=== PATIENT | male | born 1940 | race Caucasian/White ===

== ENCOUNTER → 2016-10-24 | Outpatient (CLI) | payer MEDICARE, BC, OTHER ==
[~2016-10-24] MED LIST: /IPRA3SP INH; /TAMS4CA OR; ALBU83IN INH; ALBU83IN NEB; BIAX500T OR; CATA0.2T OR; CLON0.2T PO; FLOM5CAP PO; MULT1TAB10 PO; NASONEX; POTA595T8 PO; PRED10TA2 OR; PRED20TA OR; PRED50TA OR; PROAAER10 INH; SYMB16INH INH; SYMB80AE INH
--- NOTE | 2016-10-24 08:28 | REP ---
Clinical: Lung screening. History of nicotine dependence and emphysematous disease. Comparison: 08/23/2015, 02/09/2015 Technique: Axial low-dose noncontrast images from the thoracic inlet to the upper abdomen using lung screening technique. Findings: The lung rich are well-aerated and demonstrate moderate emphysematous disease with biapical and scattered subpleural scarring. New foci of density which are presumed to be areas of progressive scarring identified in the paramediastinal anterior segment left upper lobe (image 54) and posterior superior segment left lower lobe (image 28 - 29). 4 mm left upper lobe noncalcified nodule along with few scattered calcified granulomata and calcified right hilar and subcarinal lymph nodes are identified. No consolidation, significant nodule or mass lesion is appreciated. No acute pleural effusion/reaction or pneumothorax. Tracheobronchial tree is patent. Mediastinum demonstrates mild atherosclerotic changes of the coronary arteries without cardiomegaly. Ascending thoracic aorta measures up to 4 cm diameter. Impression: Lung-RADS category III-S. Underlying emphysematous disease along with the probably benign new findings warrant initial 6-month low-dose CT comparison followed by annual low-dose CT imaging if findings remain stable. Signed by Himanshu Yoon MD 10/24/2016 08:20 A
== END ==
LOC: M RAD 06:58
PROVIDERS: ATTEND Family Medicine
DX: Z12.2 Encounter for screening for malignant neoplasm of respiratory organs (principal); Z87.891 Personal history of nicotine dependence

== ENCOUNTER → 2017-01-03 | Outpatient (CLI) | payer MEDICARE, BC, OTHER ==
--- NOTE | 2017-01-03 20:19 | REP ---
PA CHEST WITH RIGHT RIBS: 01/03/2017. Comparison: CXR 06/25/2015, low dose lung screening CT 10/24/2016, CT chest with contrast 08/23/2015. Clinical history. Right chest wall contusion. Findings: PA chest: Lungs are hyperinflated. There is apical pleuroparenchymal scarring as on the previous study. Some minor right mid lower chest subtle opacity may reflect some chest wall contusion and is seen only in part on the previous chest x-ray 06/25/2015. Could also include other chest wall tissue or breast shadow. I do not see pleural effusion, lateral pleural thickening or pneumothorax. There is no pneumomediastinum. Heart is not enlarged. Aorta is calcified, somewhat tortuous without aneurysm. There is pulmonary artery hypertension, bullous emphysematous changes and COPD, stable. No free air under the diaphragm. Right ribs: Five dedicated views of the right ribs show an anterior right ninth rib fracture, minimally displaced. This is best seen on the anterior lower chest view. I do not see other visible acute rib fractures, effusion or pneumothorax. Thoracic spine shows no compression deformity. Posterior rib articulations intact. Visualized clavicles and humerus intact. Impression: 1. There is a minimally displaced fracture, anterior right ninth rib corresponding to the history of small contusion on the chest wall. 2. Advanced COPD, bullous emphysematous changes, fibrosis and apical pleuroparenchymal scarring. No cardiomegaly or edema. The patient had a recent chest CT with findings and followup recommendations should be maintained. Signed by Albino Tai MD 01/08/2017 01:36 P
== END ==
LOC: M ADAMS 19:07
PROVIDERS: ATTEND Physician Assistant
DX: S22.31XA Fracture of one rib, right side, initial encounter for closed fracture (principal); X58.XXXA Exposure to other specified factors, initial encounter; Y93.9 Activity, unspecified; Y92.9 Unspecified place or not applicable; Y99.8 Other external cause status

== ENCOUNTER → 2017-05-08 | Outpatient (CLI) | payer MEDICARE, BC, OTHER | LOC: M RAD 08:55 | DX: Z87.891 Personal history of nicotine dependence (principal) | CPT/HCPCS: 71250 ==

== ENCOUNTER 2018-01-18 06:35 | Inpatient (IN) | payer MEDICARE, BC, OTHER ==
[2018-01-18 07:19] LABS: BASO % 0.1 % (0.0-1.0); EOS % 0.2 % (0.0-3.0); HEMATOCRIT 47.1 % (42.0-52.0); HEMOGLOBIN 15.2 g/dl (13.5-17.5); IMMATURE GRANULOCYTE % 0.5 % (0-3.0); LYMPH % 6.1 % (24.0-44.0); MEAN CORPUSCULAR HEMOGLOBIN 32.8 pg (27.0-33.0); MEAN CORPUSCULAR HGB CONC 32.3 g/dl (32.0-36.5); MEAN CORPUSCULAR VOLUME 101.5 fl (80.0-96.0); MONO # 1.5 10^3/uL (0.0-0.8); MONO % 9.1 % (0.0-5.0); NEUTROPHILS # 13.5 10^3/uL (1.8-7.7); PLATELET COUNT, AUTOMATED 203 10^3/uL (150-450); RED BLOOD COUNT 4.64 10^6/uL (4.30-6.10); RED CELL DISTRIBUTION WIDTH 13.4 % (11.5-14.5); WHITE BLOOD COUNT 16.1 10^3/uL (4.0-10.0)
[2018-01-18 07:38] LABS: INR 1.03; PROTHROMBIN TIME 13.6 SECONDS (12.1-14.4)
[2018-01-18 07:39] LABS: PARTIAL THROMBOPLASTIN TIME 29.5 SECONDS (25.4-37.6)
[2018-01-18] MEDS: IPRATROPIUM 0.5MG/ALBUTEROL 2.5MG INH SOL UD 3ML (DUONEB)(J7620) NEB (07:56)
[2018-01-18 08:11] LABS: ABG BASE EXCESS 6.1 (-2.0-2.0); ABG HCO3 31.2 MEQ/L (22.0-26.0); ABG O2 SATURATION 97.9 % (95.0-99.0); ABG PARTIAL PRESSURE CO2 46.5 mmHg (35.0-45.0); ABG PARTIAL PRESSURE O2 98.2 mmHg (75.0-100.0); ABG TOTAL CO2 32.7 MEQ/L (23.0-31.0); ABG pH (ARTERIAL) 7.445 UNITS (7.350-7.450)
[2018-01-18 08:29] LABS: ALBUMIN 3.2 GM/DL (3.2-5.2); ALKALINE PHOSPHATASE 67 U/L (45-117); ALT/SGPT 33 U/L (12-78); ANION GAP 5 MEQ/L (8-16); AST/SGOT 19 U/L (7-37); BILIRUBIN,DIRECT 0.2 MG/DL (0.0-0.2); BILIRUBIN,TOTAL 0.7 MG/DL (0.2-1.0); BLOOD UREA NITROGEN 18 MG/DL (7-18); CALCIUM LEVEL 8.7 MG/DL (8.8-10.2); CARBON DIOXIDE LEVEL 34 MEQ/L (21-32); CHLORIDE LEVEL 103 MEQ/L (98-107); CPK CREATINE PHOSPHOKINASE 55 U/L (39-308); CREATININE FOR GFR 0.93 MG/DL (0.70-1.30); GLOMERULAR FILTRATION RATE > 60.0 (>42); GLUCOSE, FASTING 107 MG/DL (70-100); LIPASE 82 U/L (73-393); MB/CK RELATIVE INDEX 7.45 (< OR =4); POTASSIUM SERUM 4.5 MEQ/L (3.5-5.1); SODIUM LEVEL 142 MEQ/L (136-145); THYROID STIMULATING HORMONE 0.833 uIU/ML (0.358-3.740); TOTAL PROTEIN 6.1 GM/DL (6.4-8.2); TROPONIN I 0.36 NG/ML (< 0.10)
[2018-01-18] MEDS ORDERED: GASTROGRAFIN SOLUTION 30ML (Q9963) As Ordered (08:58)
[2018-01-18] MEDS: GASTROGRAFIN SOLUTION 30ML PO ×2 (09:00→09:30)
[2018-01-18] MEDS: DIGOXIN INJ 0.5 MG/2 ML AMP (J1160) IV ×2 (09:05→12:34)
[2018-01-18 09:54] LABS: CPK CREATINE PHOSPHOKINASE 109 U/L (39-308); TROPONIN I 0.48 NG/ML (< 0.10)
[2018-01-18] MEDS ORDERED: ISOVUE-370 76% 100ML VIAL (Q9967) As Ordered (10:14)
[2018-01-18] MEDS: metroNIDAZOLE 500 MG in APPROPRIATE DILUENT 1 EA IV ×2 (11:35→20:20)
[2018-01-18 11:45] LABS: CPK CREATINE PHOSPHOKINASE 66 U/L (39-308); MB/CK RELATIVE INDEX 5.45 (< OR =4); TROPONIN I 0.47 NG/ML (< 0.10)
[2018-01-18] MEDS: CIPROFLOXACIN 400 MG in APPROPRIATE DILUENT 1 EA IV ×2 (12:10→23:04)
[2018-01-18] MEDS ORDERED: ONDANSETRON 4MG/2ML VIAL (J2405) IV (12:45)
[2018-01-18] MEDS: ATENOLOL 25 MG TAB PO (13:44)
[2018-01-18] MEDS: NS 500 ML IV (13:44)
[2018-01-18] MEDS ORDERED: LEVALBUTEROL 1.25 MG/0.5 ML CONCENTRATE NEB INH (13:45)
[2018-01-18] MEDS: MULTIVITAMINS/MINERALS THERAP 1 TAB PO (15:31)
[2018-01-18] MEDS: ASPIRIN 81 MG ENTERIC TAB PO (15:31)
[2018-01-18] MEDS: ACETAMINOPHEN TAB 650MG DOSE (2X325MG) PO (15:32)
[2018-01-18] MEDS: LEVALBUTEROL 1.25 MG/0.5 ML CONCENTRATE NEB INH ×2 (15:51→20:00)
[2018-01-18] MEDS: ENOXAPARIN 80 MG/0.8 ML SYRINGE (J1650) SC (17:43)
[2018-01-18] MEDS: VERAPAMIL 40 MG TAB PO ×2 (17:43→23:00)
[2018-01-18] MEDS ORDERED: diltiaZEM 125 MG in NS 100 ML IV (18:00)
[2018-01-18 19:50] LABS: CPK CREATINE PHOSPHOKINASE 40 U/L (39-308); TROPONIN I 0.62 NG/ML (< 0.10)
[2018-01-18] MEDS: TAMSULOSIN 0.4 MG CAP PO (20:20)
[2018-01-18] MEDS: ATORVASTATIN 20 MG TAB PO (20:21)
[2018-01-18] MEDS: SYMBICORT 160/4.5MCG INHALER 6GM INH (20:55)
[2018-01-18] MEDS ORDERED: SIMVASTATIN 20 MG TAB PO (21:00)
[2018-01-18] MEDS ORDERED: APIXABAN 5 MG TAB (ELIQUIS) PO (21:00)
[2018-01-19] MEDS: LEVALBUTEROL 1.25 MG/0.5 ML CONCENTRATE NEB INH ×7 (00:06→23:36)
[2018-01-19 00:46] LABS: CPK CREATINE PHOSPHOKINASE 33 U/L (39-308); MB/CK RELATIVE INDEX 4.85 (< OR =4); TROPONIN I 0.49 NG/ML (< 0.10)
[2018-01-19] MEDS: metroNIDAZOLE 500 MG in APPROPRIATE DILUENT 1 EA IV ×3 (03:14→20:33)
[2018-01-19] MEDS: VERAPAMIL 40 MG TAB PO ×3 (03:15→17:41)
[2018-01-19] MEDS: ENOXAPARIN 80 MG/0.8 ML SYRINGE (J1650) SC ×2 (05:44→17:39)
[2018-01-19 06:05] LABS: BASO % 0.2 % (0.0-1.0); EOS # 0.1 10^3/uL (0.0-0.50); EOS % 0.4 % (0.0-3.0); HEMATOCRIT 39.7 % (42.0-52.0); IMMATURE GRANULOCYTE % 0.5 % (0-3.0); LYMPH # 1.1 10^3/uL (1.5-4.5); LYMPH % 8.6 % (24.0-44.0); MONO # 1.1 10^3/uL (0.0-0.8); MONO % 8.9 % (0.0-5.0); NEUTROPHILS # 10.5 10^3/uL (1.8-7.7); NEUTROPHILS % 81.4 % (36.0-66.0); PLATELET COUNT, AUTOMATED 172 10^3/uL (150-450); RED BLOOD COUNT 3.97 10^6/uL (4.30-6.10); RED CELL DISTRIBUTION WIDTH 13.2 % (11.5-14.5); WHITE BLOOD COUNT 12.8 10^3/uL (4.0-10.0)
[2018-01-19 06:17] LABS: HEMOGLOBIN 13.1 g/dl (13.5-17.5)
[2018-01-19 06:32] LABS: ESTIMATED AVERAGE GLUCOSE 126 MG/DL (60-110)
[2018-01-19 06:48] LABS: ALBUMIN 2.4 GM/DL (3.2-5.2); ALBUMIN/GLOBULIN RATIO 0.83 (1.00-1.93); ALKALINE PHOSPHATASE 58 U/L (45-117); ALT/SGPT 26 U/L (12-78); ANION GAP 3 MEQ/L (8-16); AST/SGOT 12 U/L (7-37); BILIRUBIN,DIRECT 0.3 MG/DL (0.0-0.2); BILIRUBIN,TOTAL 0.7 MG/DL (0.2-1.0); BLOOD UREA NITROGEN 13 MG/DL (7-18); CALCIUM LEVEL 7.8 MG/DL (8.8-10.2); CARBON DIOXIDE LEVEL 32 MEQ/L (21-32); CHLORIDE LEVEL 105 MEQ/L (98-107); CPK CREATINE PHOSPHOKINASE 26 U/L (39-308); CREATININE FOR GFR 0.83 MG/DL (0.70-1.30); GLOMERULAR FILTRATION RATE > 60.0 (>42); GLUCOSE, FASTING 86 MG/DL (70-100); POTASSIUM SERUM 4.3 MEQ/L (3.5-5.1); SODIUM LEVEL 140 MEQ/L (136-145); TOTAL PROTEIN 5.3 GM/DL (6.4-8.2); TROPONIN I 0.39 NG/ML (< 0.10)
[2018-01-19] MEDS: SYMBICORT 160/4.5MCG INHALER 6GM INH ×2 (07:33→20:26)
[2018-01-19] MEDS: DIGOXIN 0.25 MG TAB PO (08:55)
[2018-01-19] MEDS: ASPIRIN 81 MG ENTERIC TAB PO (08:55)
[2018-01-19] MEDS: MULTIVITAMINS/MINERALS THERAP 1 TAB PO (08:55)
[2018-01-19] MEDS ORDERED: DIGOXIN 0.125 MG TAB PO (09:00)
[2018-01-19] MEDS ORDERED: ENOXAPARIN 30 MG/0.3 ML SYR (J1650) SC (09:00)
[2018-01-19 10:57] LABS: NT-PRO BNP 5724 PG/ML (<450)
[2018-01-19] MEDS: CIPROFLOXACIN 400 MG in APPROPRIATE DILUENT 1 EA IV (12:05)
[2018-01-19] MEDS: TAMSULOSIN 0.4 MG CAP PO (20:34)
[2018-01-19] MEDS: ENTRESTO 24-26MG TABLET (SACUBITRIL/VALSARTAN) PO (20:35)
[2018-01-19] MEDS: ATORVASTATIN 20 MG TAB PO (20:35)
[2018-01-20] MEDS: VERAPAMIL 40 MG TAB PO ×4 (00:11→17:56)
[2018-01-20] MEDS: CIPROFLOXACIN 400 MG in APPROPRIATE DILUENT 1 EA IV ×3 (00:11→23:24)
[2018-01-20] MEDS: metroNIDAZOLE 500 MG in APPROPRIATE DILUENT 1 EA IV ×3 (03:39→19:59)
[2018-01-20] MEDS: LEVALBUTEROL 1.25 MG/0.5 ML CONCENTRATE NEB INH ×5 (04:00→20:00)
[2018-01-20 05:37] LABS: BASO % 0.2 % (0.0-1.0); EOS # 0.1 10^3/uL (0.0-0.50); EOS % 0.9 % (0.0-3.0); HEMATOCRIT 39.9 % (42.0-52.0); HEMOGLOBIN 13.3 g/dl (13.5-17.5); IMMATURE GRANULOCYTE % 0.4 % (0-3.0); LYMPH # 0.9 10^3/uL (1.5-4.5); LYMPH % 9.9 % (24.0-44.0); MEAN CORPUSCULAR HEMOGLOBIN 32.9 pg (27.0-33.0); MEAN CORPUSCULAR HGB CONC 33.3 g/dl (32.0-36.5); MEAN CORPUSCULAR VOLUME 98.8 fl (80.0-96.0); MONO # 0.8 10^3/uL (0.0-0.8); MONO % 9.1 % (0.0-5.0); NEUTROPHILS # 6.8 10^3/uL (1.8-7.7); NEUTROPHILS % 79.5 % (36.0-66.0); PLATELET COUNT, AUTOMATED 186 10^3/uL (150-450); RED BLOOD COUNT 4.04 10^6/uL (4.30-6.10); RED CELL DISTRIBUTION WIDTH 12.8 % (11.5-14.5); WHITE BLOOD COUNT 8.6 10^3/uL (4.0-10.0)
[2018-01-20 06:08] LABS: ANION GAP 5 MEQ/L (8-16); BLOOD UREA NITROGEN 11 MG/DL (7-18); CALCIUM LEVEL 7.8 MG/DL (8.8-10.2); CARBON DIOXIDE LEVEL 31 MEQ/L (21-32); CHLORIDE LEVEL 105 MEQ/L (98-107); CREATININE FOR GFR 0.74 MG/DL (0.70-1.30); GLOMERULAR FILTRATION RATE > 60.0 (>42); GLUCOSE, FASTING 97 MG/DL (70-100); POTASSIUM SERUM 3.7 MEQ/L (3.5-5.1); SODIUM LEVEL 141 MEQ/L (136-145); TROPONIN I 0.21 NG/ML (< 0.10)
[2018-01-20] MEDS: ENOXAPARIN 80 MG/0.8 ML SYRINGE (J1650) SC ×2 (06:53→17:56)
[2018-01-20] MEDS: SYMBICORT 160/4.5MCG INHALER 6GM INH ×2 (07:13→20:31)
[2018-01-20] MEDS: ENTRESTO 24-26MG TABLET (SACUBITRIL/VALSARTAN) PO ×2 (09:34→19:57)
[2018-01-20] MEDS: DIGOXIN 0.25 MG TAB PO (09:35)
[2018-01-20] MEDS: MULTIVITAMINS/MINERALS THERAP 1 TAB PO (09:35)
[2018-01-20] MEDS: ASPIRIN 81 MG ENTERIC TAB PO (09:35)
[2018-01-20] MEDS: SPIRONOLACTONE 12.5MG PER 1/2 TABLET PO (19:57)
[2018-01-20] MEDS: ATORVASTATIN 20 MG TAB PO (19:57)
[2018-01-20] MEDS: TAMSULOSIN 0.4 MG CAP PO (19:58)
[2018-01-20] MEDS: POTASSIUM CHLORIDE 10 MEQ SR TABLET PO (19:58)
[2018-01-21] MEDS: metroNIDAZOLE 500 MG in APPROPRIATE DILUENT 1 EA IV (04:00)
[2018-01-21] MEDS: LEVALBUTEROL 1.25 MG/0.5 ML CONCENTRATE NEB INH ×4 (04:00→11:24)
[2018-01-21] MEDS ORDERED: SLF 3 ML SYR IV (05:00)
[2018-01-21 05:41] LABS: BASO % 0.5 % (0.0-1.0); EOS # 0.2 10^3/uL (0.0-0.50); EOS % 1.9 % (0.0-3.0); HEMATOCRIT 42.6 % (42.0-52.0); HEMOGLOBIN 14.2 g/dl (13.5-17.5); IMMATURE GRANULOCYTE % 0.4 % (0-3.0); LYMPH # 0.8 10^3/uL (1.5-4.5); LYMPH % 9.9 % (24.0-44.0); MEAN CORPUSCULAR HEMOGLOBIN 33.1 pg (27.0-33.0); MEAN CORPUSCULAR HGB CONC 33.3 g/dl (32.0-36.5); MEAN CORPUSCULAR VOLUME 99.3 fl (80.0-96.0); MONO # 0.9 10^3/uL (0.0-0.8); MONO % 10.9 % (0.0-5.0); NEUTROPHILS # 6.4 10^3/uL (1.8-7.7); NEUTROPHILS % 76.4 % (36.0-66.0); PLATELET COUNT, AUTOMATED 216 10^3/uL (150-450); RED BLOOD COUNT 4.29 10^6/uL (4.30-6.10); RED CELL DISTRIBUTION WIDTH 12.9 % (11.5-14.5); WHITE BLOOD COUNT 8.4 10^3/uL (4.0-10.0)
[2018-01-21] MEDS: SLF 3 ML SYR IV (06:00)
[2018-01-21 06:13] LABS: ANION GAP 5 MEQ/L (8-16); BLOOD UREA NITROGEN 9 MG/DL (7-18); CARBON DIOXIDE LEVEL 30 MEQ/L (21-32); CHLORIDE LEVEL 106 MEQ/L (98-107); CREATININE FOR GFR 0.79 MG/DL (0.70-1.30); GLOMERULAR FILTRATION RATE > 60.0 (>42); GLUCOSE, FASTING 102 MG/DL (70-100); POTASSIUM SERUM 4.4 MEQ/L (3.5-5.1); SODIUM LEVEL 141 MEQ/L (136-145); TROPONIN I 0.15 NG/ML (< 0.10)
[2018-01-21] MEDS: BISOPROLOL FUM 2.5 MG PER 1/2TAB PO ×3 (07:07→11:17)
[2018-01-21] MEDS: ENOXAPARIN 80 MG/0.8 ML SYRINGE (J1650) SC (07:07)
[2018-01-21] MEDS: SYMBICORT 160/4.5MCG INHALER 6GM INH (07:19)
[2018-01-21] MEDS: MULTIVITAMINS/MINERALS THERAP 1 TAB PO (08:05)
[2018-01-21] MEDS: ASPIRIN 81 MG ENTERIC TAB PO (08:05)
[2018-01-21] MEDS: ENTRESTO 24-26MG TABLET (SACUBITRIL/VALSARTAN) PO (08:05)
[2018-01-21] MEDS: DIGOXIN 0.25 MG TAB PO (08:06)
[2018-01-21] MEDS: SPIRONOLACTONE 12.5MG PER 1/2 TABLET PO (08:06)
[2018-01-21] MEDS: AUGMENTIN 875 MG TAB PO (11:49)
== END 2018-01-21 13:00 | disposition short-term general hospital (02) | DRG 308 ==
LOC: M ED 06:35 → M ED INP 12:43 → M PCU 14:38
DX: I48.92 Unspecified atrial flutter (principal); I50.43 Acute on chronic combined systolic (congestive) and diastolic (congestive) heart failure; I24.8 Other forms of acute ischemic heart disease; K57.32 Diverticulitis of large intestine without perforation or abscess without bleeding; I48.91 Unspecified atrial fibrillation; I25.10 Atherosclerotic heart disease of native coronary artery without angina pectoris; I34.0 Nonrheumatic mitral (valve) insufficiency; I35.1 Nonrheumatic aortic (valve) insufficiency; I45.2 Bifascicular block; R91.8 Other nonspecific abnormal finding of lung field; I11.0 Hypertensive heart disease with heart failure; N40.0 Benign prostatic hyperplasia without lower urinary tract symptoms; J44.9 Chronic obstructive pulmonary disease, unspecified; Z87.891 Personal history of nicotine dependence; Z87.442 Personal history of urinary calculi; Z79.51 Long term (current) use of inhaled steroids; Z79.52 Long term (current) use of systemic steroids; Z79.899 Other long term (current) drug therapy

== ENCOUNTER → 2018-02-11 | Outpatient (CLI) | payer MEDICARE, BC, OTHER | LOC: M RAD 06:59 | DX: R91.8 Other nonspecific abnormal finding of lung field (principal) | CPT/HCPCS: 71250 ==

== ENCOUNTER → 2018-07-17 | Outpatient (CLI) | payer MEDICARE, BC, OTHER ==
[~2018-07-17] MED LIST changes: -/IPRA3SP INH; -/TAMS4CA OR; +ALDA25TA2 PO; +AMOX/K PO; +AMOX875T2 PO; +ASPI81TAEC PO; +ATOR1TAB21 PO; +ATRO1SOL13 INH; +BISO5TAB5 PO; +DIGO0.25 PO; +ENTR1TAB PO; +FLOM0.4C39 OR; +FLOM0.4C39 PO; -FLOM5CAP PO; +LOVE0.6I2 SC; +PRED10TA2 PO
--- NOTE | 2018-07-17 12:03 | REP ---
PET/CT: HISTORY: Nonspecific abnormal finding of the lung field. COMPARISONS: Comparison CT study of the chest February 11, 2018. TECHNIQUE: 46 minutes following the intravenous injection of a 9.41 mCi dose of F-18 FDG, three-dimensional PET scintigraphy is acquired from the skull base to the proximal thighs. Triplanar noncontrast CT scanning is acquired through the same anatomic range for attenuation correction, and image registration with scan parameters optimized to minimize radiation exposure to the patient. PET scintigraphy and CT datasets were fused and displayed on a workstation with multiplanar and projection display capability. PET/CT FINDINGS: Head and neck soft tissues are unremarkable. There is no abnormal pulmonary parenchymal hypermetabolic uptake. The 1.6 cm nodule identified on the CT study of the chest from February 11, 2018 has resolved. No other intrathoracic hypermetabolic uptake is seen. In the abdomen and pelvis, normal hepatic, splenic, and gastrointestinal activity is seen. No abnormal hypermetabolic uptake is noted. IMPRESSION: Negative PET scintigraphy. No abnormal pulmonary parenchymal hypermetabolic uptake is seen. The recently noted 1.6 cm right lower lobe nodule is no longer apparent. Electronically Signed by Davy Nieto MD 07/17/2018 02:52 P
== END ==
LOC: M PLARAD 07:07
PROVIDERS: ATTEND Internal Medicine Pulmonary Disease
DX: Z87.09 Personal history of other diseases of the respiratory system (principal)
CPT/HCPCS: 78815; A9552

== ENCOUNTER → 2018-08-20 | Outpatient (REF) | payer MEDICARE, OTHER ==
[2018-08-20 13:37] LABS: ALBUMIN 3.5 GM/DL (3.2-5.2); ALT/SGPT 223 U/L (12-78); BILIRUBIN,TOTAL 0.6 MG/DL (0.2-1.0); BLOOD UREA NITROGEN 18 MG/DL (7-18); CALCIUM LEVEL 8.8 MG/DL (8.8-10.2); CARBON DIOXIDE LEVEL 29 MEQ/L (21-32); CHLORIDE LEVEL 105 MEQ/L (98-107); CHOLESTEROL LEVEL 190 MG/DL (<200); CHOLESTEROL RISK RATIO 1.919 (<5); CREATININE FOR GFR 0.85 MG/DL (0.70-1.30); GLOMERULAR FILTRATION RATE > 60.0 (>42); GLUCOSE, FASTING 96 MG/DL (70-100); HDL CHOLESTEROL 99 MG/DL (>40); LDL CHOLESTEROL 80 MG/DL (<100); MAGNESIUM LEVEL 2.5 MG/DL (1.8-2.4); NON-HDL-C 91 MG/DL; POTASSIUM SERUM 4.4 MEQ/L (3.5-5.1); SODIUM LEVEL 140 MEQ/L (136-145); TOTAL PROTEIN 6.9 GM/DL (6.4-8.2); TRIGLYCERIDES LEVEL 53 MG/DL (<150)
== END ==
LOC: M LABDRAW1 12:02
PROVIDERS: ATTEND Family Medicine
DX: I10 Essential (primary) hypertension (principal); Z79.899 Other long term (current) drug therapy

== ENCOUNTER 2019-04-23 12:01 | Day surgery (SDC) | payer MEDICARE, BC, OTHER ==
[~2019-04-23] VITALS: Ht 177.8 cm; Wt 73.5 kg
[~2019-04-23 12:01] MED LIST changes: +BISO5TAB14 PO; -BISO5TAB5 PO; -DIGO0.25 PO; +DIGO0.253 PO; +ELIQ5TAB PO; +NITR4TASL SL; +NS 1,000 ML IV SCH; +TIOT18INH INH
[2019-04-23] MEDS ORDERED: ALBUTEROL SULFATE 2.5 MG/0.5 ML INH NEB SOLN As Ordered ONE (13:28)
[2019-04-23] MEDS ORDERED: LIDOCAINE 2% INJ 100 MG/5 ML SDV (FOR ANES.) As Ordered ONE (13:45)
[2019-04-23] MEDS ORDERED: propofoL 200 MG/20 ML VIAL As Ordered ONE (13:45)
[2019-04-23] MEDS ORDERED: ALBUTEROL SULFATE 2.5 MG/0.5 ML INH NEB SOLN INH ONE (14:00)
--- NOTE | 2019-04-23 14:10 | ROOR ---
Patient Name: Bakari Arguello Procedure Date: 04/23/2019 1:48 PM Date of : 1940 Age: 79 Room: [facility] Gender: Male Note Status: Finalized Procedure: Colonoscopy Indications: High risk colon cancer surveillance: Personal history of colonic polyps Providers: DO Sapna Alas MD: Cindy Torres MD Requesting Provider: Medicines: Propofol per Anesthesia Complications: No immediate complications. Procedure: Pre-Anesthesia Assessment: - Prior to the procedure, a History and Physical was performed, and patient medications and allergies were reviewed. The patient is competent. The risks and benefits of the procedure and the sedation options and risks were discussed with the patient. All questions were answered and informed consent was obtained. Patient identification and proposed procedure were verified by the physician, the nurse, the anesthesiologist and the rehab technician in the endoscopy suite. Mental Status Examination: alert and oriented. Airway Examination: normal oropharyngeal airway and neck mobility. Respiratory Examination: clear to auscultation. CV Examination: normal. Prophylactic Antibiotics: The patient does not require prophylactic antibiotics. Prior Anticoagulants: The patient has taken Eliquis (apixaban), last dose was 5 days prior to procedure. ASA Grade Assessment: III - A patient with severe systemic disease. After reviewing the risks and benefits, the patient was deemed in satisfactory condition to undergo the procedure. The anesthesia plan was to use monitored anesthesia care (MAC). Immediately prior to administration of medications, the patient was re-assessed for adequacy to receive sedatives. The heart rate, respiratory rate, oxygen saturations, blood pressure, adequacy of pulmonary ventilation, and response to care were monitored throughout the procedure. The physical status of the patient was re-assessed after the procedure. The Colonoscope was introduced through the anus and advanced to the cecum, identified by appendiceal orifice and ileocecal valve. The colonoscopy was technically difficult and complex due to inadequate bowel prep. [Solution]. Findings: A less than 5 mm polyp was found in the transverse colon. The polyp was hyperplastic. The polyp was removed with a jumbo cold forceps. Resection and retrieval were complete. Estimated blood loss was minimal. Multiple small and large-mouthed diverticula were found in the sigmoid colon and descending colon. Non-bleeding internal hemorrhoids were found during retroflexion. The hemorrhoids were small. A moderate amount of stool was found in the entire colon, interfering with visualization. The exam was otherwise without abnormality on direct and retroflexion views. Impression: - One less than 5 mm polyp in the transverse colon, removed with a jumbo cold forceps. Resected and retrieved. - Diverticulosis in the sigmoid colon and in the descending colon. - Non-bleeding internal hemorrhoids. - Stool in the entire examined colon. - The examination was otherwise normal on direct and retroflexion views. Recommendation: - Patient has a contact number available for emergencies. The signs and symptoms of potential delayed complications were discussed with the patient. Return to normal activities tomorrow. Written discharge instructions were provided to the patient. - Repeat colonoscopy in 1 year because the bowel preparation was suboptimal. - Return to my office as previously scheduled. - Await pathology results. Jamshid Dunn DO 04/23/2019 2:10:17 PM Electronically signed by Jamshid Dunn DO Number of Addenda: 0 Note Initiated On: 04/23/2019 1:48 PM Estimated Blood Loss: Estimated blood loss: none.
[2019-04-23 14:35] VITALS: BP 111/73
== END 2019-04-23 14:53 | disposition home or self-care (01) ==
LOC: M OPP 12:01
PROVIDERS: ATTEND Surgery
DX: Z12.11 Encounter for screening for malignant neoplasm of colon (principal); Z86.010 Personal history of colon polyps; D12.3 Benign neoplasm of transverse colon; K64.8 Other hemorrhoids; K57.30 Diverticulosis of large intestine without perforation or abscess without bleeding; Z79.82 Long term (current) use of aspirin; Z79.899 Other long term (current) drug therapy

== ENCOUNTER → 2019-08-14 | Outpatient (CLI) | payer MEDICARE, BC, OTHER ==
[~2019-08-14] MED LIST changes: -NS 1,000 ML IV SCH
--- NOTE | 2019-08-14 12:33 | REP ---
CT CHEST WITHOUT IV CONTRAST: CT chest performed without IV contrast. Sagittal and coronal reconstruction images are performed. Comparison is made with prior PET/CT 07/17/[address] 02/11/2018. There is biapical pleural and parenchymal scaring which is stable. Diffuse interstitial fibrotic scaring and emphysematous change is stable. There is a 6 mm nodule in the right lower lobe, which has remained stable since the 02/11/2018 exam. No new nodule is seen. Focal fibroatelectatic change is seen in the right lateral costophrenic angle. Calcified granuloma is seen in each lung. Small calcified lymph nodes are seen in the subcarinal region and right hilum. No suspicious adenopathy is seen. There is atherosclerotic calcification of the thoracic aorta with mild ectasia. The heart is not enlarged. There is no pleural or pericardial effusion. There are calcified granulomas in the liver and spleen. Small gallstones are seen in the gallbladder. There are degenerative changes of the spine. There is a stable compression deformity of L1 noted. IMPRESSION: Stable chronic lung findings as discussed in detail above. Stable 6 mm nodular density in the right lower lobe unchanged since 02/11/2018. No new nodule. Focal fibroatelectasis right lateral costophrenic angle. Evidence of prior granulomatous disease. Gallstones in the gallbladder. Electronically Signed by Jamshid Wyatt MD 08/14/2019 01:08 P
== END ==
LOC: M RAD 10:53
PROVIDERS: ATTEND Internal Medicine Pulmonary Disease
DX: R91.8 Other nonspecific abnormal finding of lung field (principal); J84.10 Pulmonary fibrosis, unspecified; I70.0 Atherosclerosis of aorta; K80.20 Calculus of gallbladder without cholecystitis without obstruction; I77.810 Thoracic aortic ectasia

== ENCOUNTER → 2020-02-10 | Outpatient (REF) | payer MEDICARE, BC, OTHER ==
[2020-02-10 12:48] LABS: BASO # 0.1 10^3/uL (0.0-0.2); BASO % 0.7 % (0.0-1.0); EOS # 0.2 10^3/uL (0.0-0.5); EOS % 2.5 % (0.0-3.0); HEMATOCRIT 45.2 % (42.0-52.0); HEMOGLOBIN 14.9 g/dl (13.5-17.5); LYMPH # 1.5 10^3/uL (1.5-5.0); LYMPH % 20.9 % (24.0-44.0); MEAN CORPUSCULAR HEMOGLOBIN 33.9 pg (27.0-33.0); MEAN CORPUSCULAR VOLUME 102.7 fl (80.0-96.0); MONO # 0.7 10^3/uL (0.0-0.8); MONO % 8.9 % (0.0-5.0); NEUTROPHILS # 4.9 10^3/uL (1.5-8.5); NEUTROPHILS % 66.7 % (36.0-66.0); PLATELET COUNT, AUTOMATED 186 10^3/uL (150-450); WHITE BLOOD COUNT 7.3 10^3/uL (4.0-10.0)
[2020-02-10 13:28] LABS: ALBUMIN 3.7 GM/DL (3.2-5.2); ALT/SGPT 125 U/L (12-78); BILIRUBIN,TOTAL 0.6 MG/DL (0.2-1.0); BLOOD UREA NITROGEN 18 MG/DL (7-18); CALCIUM LEVEL 9.3 MG/DL (8.8-10.2); CARBON DIOXIDE LEVEL 33 MEQ/L (21-32); CHLORIDE LEVEL 105 MEQ/L (98-107); CHOLESTEROL LEVEL 143 MG/DL (<200); CHOLESTEROL RISK RATIO 1.787 (<5); CREATININE FOR GFR 0.87 MG/DL (0.70-1.30); GLOMERULAR FILTRATION RATE > 60.0 (>42); GLUCOSE, FASTING 95 MG/DL (70-100); HDL CHOLESTEROL 80 MG/DL (>40); LDL CHOLESTEROL 50 MG/DL (<100); NON-HDL-C 63 MG/DL; POTASSIUM SERUM 4.7 MEQ/L (3.5-5.1); SODIUM LEVEL 142 MEQ/L (136-145); TOTAL PROTEIN 7.1 GM/DL (6.4-8.2); TRIGLYCERIDES LEVEL 66 MG/DL (<150)
== END ==
LOC: M LABDRWAD 12:09
PROVIDERS: ATTEND Family Medicine
DX: I10 Essential (primary) hypertension (principal); E78.2 Mixed hyperlipidemia

== ENCOUNTER → 2020-05-14 | Outpatient (CLI) | payer MEDICARE, BC, OTHER ==
[~2020-05-14] MED LIST changes: +BUDE10.2 INH; +INCR1INH INH; +TAMS1CAP17 PO
== END ==
LOC: M LABSMTC 09:57
PROVIDERS: ATTEND Anesthesiology
DX: Z01.812 Encounter for preprocedural laboratory examination (principal); Z20.822 Contact with and (suspected) exposure to COVID-19

== ENCOUNTER 2020-05-19 06:53 | Day surgery (SDC) | payer MEDICARE, BC, OTHER ==
[~2020-05-19] VITALS: Ht 180.3 cm; Wt 71.7 kg
[~2020-05-19 06:53] MED LIST changes: +NS 1,000 ML IV ONE
--- OUTSIDE RECORDS SUMMARY | 2020-05-19 06:57 | CCD | Continuity of Care Document ---
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 AUTM [phone] Problems Active Problems Provider Date Essential hypertension Jamshid Dunn DO Onset: 5 Social History Type Date Description Comments Sex Unknown ETOH Use Denies alcohol use Tobacco Use Start: 04[birth year]16/51 End: 04/16/17 Patient is a forme r smoker QUIT 2011 - SMOKED 1-02/15 PPD FOR 50 YEARS Recreational Drug Use Denies Drug Use Smoking Status Reviewed: 08/21/19 Patient is a former smoker QU IT 2011 - SMOKED 1-02/15 PPD FOR 50 YEARS Allergies, Adverse Reactions, Alerts Description No Known Drug Allergies Medications Active Medications SIG Qnty Indications Ordering Provide r Date Spiriva Respimat 2.5mcg/Act Aeroso l 2 puffs every day 4gm J44.9 Sana Awad M.D. 02/04/2018 Tamsulosin HCL 0.4mg Capsules 1 by mouth every day Cindy Torres M.D. Symbicort 160-4.5mcg/Act Aerosol 2 puff twice a day 1units Cindy Torres M.D. Proair HFA 108(90Base) mcg/Act Aer osol 2 puffs every 4 hours as needed Unknown Albuterol Sulfate Nebulizer 1 vial via nebulizer four times a day as needed Unknown Multivitamin Adult Tablets 1 by mouth every day Unknown Aspirin 81mg Tablets DR 1 by mouth every day Unknown Eliquis 5mg Tablets 1 by mouth twice a day--- Dr. Baker, hx stent Unknown Entresto 24-26mg Tablets 1 by mouth twice a day Unknown Spironolactone 25mg Tablets 1/2 by mouth every day Unknown Nitrostat 0.4mg Tablets Sub 1 tab by mouth sl as needed Unknown Immunizations Description No Information Available Vital Signs Date Vital Result Comment 04/29/2020 10:49am BP Systolic 130 mmHg BP Diastolic 70 mmHg Height 70 inches 5'10" Weight 166.00 lb BMI (Body Mass Index) 23.8 kg/m2 [place] Body Weight 166 lb Weight 75.298 kg BSA (Body Surface Area) 1.93 m2 08/21/2019 8:13am BP Systolic 122 mmHg BP Diastolic 74 mmHg Heart Rate 59 /min O2 % BldC Oximetry 97 % Body Temperature 97.6 F Height 70 inches 5'10" Weight 169.12 lb BMI (Body Mass Index) 24.3 kg/m2 [place] Body Weight 166 lb Weight 76.715 kg BSA (Body Surface Area) 1.94 m2 Results Description No Information Available Procedures Description No Information Available Medical Devices Description No Information Available Encounters Description No Information Available Assessments Date Code Description Provider 04/29/2020 Z86.010 Personal history of colonic poly ps Jamshid Dunn DO Plan of Treatment Future Appointment(s):* 06/02/2020 9:30 am - Jimi Retana NP at [facility] * 05/19/2020 8:00 am - Jamshid Dunn DO at [facility] 04/29/2020 - Jamshid Dunn DO* Z86.010 Personal history of colonic polyps* Comments:* S/P colonoscopy 1 year ago with a polyp and poor prep. Recommendation was for repeat scope this year. Risks and benefits of the scope were discussed in detail with him. Risks include, but are not limited to, bleeding, infection, and perforation. He understands, and agreed to the procedure. Functional Status Functional Condition Comment Date Status Independent with all ADL's Activ e Independent with all IADL's Acti ve Mental Status Mental Condition Comment Date Status Cognitive ability not impaired A ctive Referrals Description No Information Available
--- OUTSIDE RECORDS SUMMARY | 2020-05-19 06:57 | CCD | Continuity of Care Document ---
Author Author Bakari [facility]HELPS [facility] Organization Unknown Address [address] [place] [address] Phone [phone] Problems Active Problems Provider Date Essential hypertension Cindy Torres M.D. Onset: 06/17 COPD Cindy Torres M.D. Onset: 05/05/19 15 Congestive heart failure Cindy Torres M.D. Onset: Social History Type Date Description Comments Sex Unknown Tobacco Use Start: Unknown End: Unknown Current Ciga rette Smoker Packs Daily 1 1/2 Tobacco Use Start: Unknown Never Used Smokeless Tobacco ETOH Use Denies alcohol use Tobacco Use Start: Unknown End: Unknown Patient is a former smoker 1-1 1/2 ppd x 50 years. Quit but can't tell me when he quit Recreational Drug Use Never Used Drugs Smoking Status Reviewed: 02/24/20 Patient is a former smoker 1- 1 1/2 ppd x 50 years. Quit but can't tell me when he quit Exercise Type/Frequency Exercises regularly Tattoo/Piercing None Sun Exposure Moderate amount of sun exposure Sun Exposure Does not use sunscreen Seat Belt/Car Seat Sometimes uses seat belt Bike Helmet Never Smoke Alarms Yes Smoke Alarms Carbon Monoxide Detector: Yes Allergies, Adverse Reactions, Alerts Description No Known Drug Allergies Medications Active Medications SIG Qnty Indications Ordering Provide r Date Prednisone 10mg Tablets 4 po q d xs 3 d then 3 q d xs 3 d then 2 q d xs 3 d then 1 qd for 3 days then 1/2 qd for 4 days 36tabs J44.1 Mabel Phelps FNP 03/08/2020 Levofloxacin 500mg Tablets one tab daily for seven days 7tabs J44.1 Mabel Phelps FNP 03/08/2020 Spiriva Handihaler 18mcg Capsules inhale the contents of one capsule by mouth via handihaler daily 30caps J8 4.10 Cindy Torres M.D. 05/13/2018 Entresto 24-26mg Tablets take one tablet by mouth twice a day 60tabs Cindy Torres M.D. Spironolactone 25mg Tablets take one-half tablet by mouth every morning 45tabs Cindy Torres M.D. 03/05/2018 Proair HFA 108(90Base) mcg/Act Aer osol 2 puffs every 4 hours as needed 25.5gm J44.9 Cindy Torres M.D. 08/12/2014 Tamsulosin HCL 0.4mg Capsules take one capsule by mouth at bedtime 30caps Cindy Torres M.D. 07/06/2011 Albuterol Sulfate (2 .5mg/3ML) 0.083% Nebulizer Use 1 Vial Every 6 Hours as Needed For Cough 75units J44 .9 Cindy Torres M.D. 05/15/2011 Multivitamin Men Tablets 1 by mouth every day Unknown Symbicort 160-4.5mcg/Act Aerosol inhale two puffs by mouth twice a day 30.6units J84.10 Cindy Torres M.D. Lipitor 40mg Tablets 1 by mouth every day 90tabs Cindy Torres M.D. Eliquis 5mg Tablets Take One Tablet By Mouth Twice A Day 90tabs Cindy Torres M.D. Nitroglycerin 0.4mg Tablets Sub place 1 tablet under the tongue every five minutes up to maximum of 3 tablets as needed for chest pain. if no relief call 911 Devendra Cameron MD Aspirin 81 Low Dose 81mg Chewtabs Unknown Immunizations CPT Code Status Date Vaccine Lot # [id number] [place] 02/24/2020 Influenza Virus Vaccine, Quadrivalent,age 3 and up,multidose vial [id number] 46834 Given 02/21/2019 Influenza Virus Vaccine, Quadrivalent,age 3 and up,multidose vial [id number] 75668 Given 03/20/2018 Influenza Virus, quadravalent, preservative free,age 3 and up [id number] 44833 Given 08/28/2016 Prevnar 13 For Adults [id number] Given 02/05/2013 Influenza Vaccine (Fluzone)( medicare) [id number] Given 02/05/2013 Pneumococcal Vaccine [id number] 24080 Given 02/05/2013 Influenza Vaccination [id number] 36454 Given 01/31/2007 Influenza Vaccination [id number] 28823 Refused 01/04/2015 Influenza Vaccination Vital Signs Date Vital Result Comment 02/24/2020 7:18am BP Systolic 151 mmHg BP Diastolic 71 mmHg BP Systolic Recheck 127 mmHg recheck BP Diastolic Recheck 67 mmHg recheck Heart Rate 54 /min Body Temperature 97.2 F Respiratory Rate 18 /min Height 70.75 inches 5'10.75" Weight 161.38 lb O2 % BldC Oximetry 93 % P-47 Peak Expiratory Flow Rate 497 Estimated Peak Flow Rate [place] Body Weight 166 lb BMI (Body Mass Index) 22.7 kg/m2 08/22/2019 7:18am BP Systolic 133 mmHg BP Diastolic 69 mmHg Heart Rate 58 /min Body Temperature 97.0 F Respiratory Rate 18 /min Height 70.75 inches 5'10.75" Weight 169.00 lb O2 % BldC Oximetry 94 % Peak Expiratory Flow Rate 494 Estimated Peak Flow Rate [place] Body Weight 166 lb BMI (Body Mass Index) 23.7 kg/m2 Results Test Acquired Date Facility Test Result H/L Range Note CMP - Complete Panel (14 Test) 02/10/2020 Patient [address] [place], [place] [id number] [phone] Glucose, Fasting 95 mg/dL Normal 70-100 Blood Urea Nitrogen 18 mg/dL Normal 7-18 Creatinine For GFR 0.87 mg/dL Normal 0.70-1.30 Glomerular Filtration Rate > 60.0 Normal >42 1 Sodium Level 142 mEq/L Normal 136-145 Potassium Serum 4.7 mEq/L Normal 3.5-5.1 Chloride Level 105 mEq/L Normal 98-107 Carbon Dioxide Level 33 mEq/L High 21-32 Anion Gap 4 mEq/L Low 8-16 Calcium Level 9.3 mg/dL Normal 8.8-10.2 Ast/Sgot 83 U/L High 7-37 Alt/SGPT 125 U/L High 12-78 Alkaline Phosphatase 106 U/L Normal 45-117 Bilirubin,Total 0.6 mg/dL Normal 0.2-1.0 Total Protein 7.1 GM/DL Normal 6.4-8.2 Albumin 3.7 GM/DL Normal 3.2-5.2 Albumin/Globulin Ratio 1.1 Normal CBC With Auto Diff 02/10/2020 [place] [address] [phone] White Blood Count 7.3 10 Normal 4.0-10.0 Red Blood Count 4.40 10 Normal 4.30-6.10 Hemoglobin 14.9 g/dL Normal 13.5-17.5 Hematocrit 45.2 % Normal 42.0-52.0 Mean Corpuscular Volume 102.7 fl High 80.0-96.0 Mean Corpuscular Hemoglobin 33.9 pg High 27.0-33.0 Mean Corpuscular HGB Conc 33.0 g/dL Normal 32.0-36.5 Red Cell Distribution Width 12.6 % Normal 11.5-14.5 Platelet Count, Automated 186 10 Normal 150-450 Neutrophils % 66.7 % High 36.0-66.0 Lymph % 20.9 % Low 24.0-44.0 [place] % 8.9 % High 0.0-5.0 Eos % 2.5 % Normal 0.0-3.0 Baso % 0.7 % Normal 0.0-1.0 Immature Granulocyte % 0.3 % Normal 0-3.0 Nucleated Red Blood Cell % 0.0 % Normal 0-0 Neutrophils # 4.9 10 Normal 1.5-8.5 Lymph # 1.5 10 Normal 1.5-5.0 [place] # 0.7 10 Normal 0.0-0.8 Eos # 0.2 10 Normal 0.0-0.5 Baso # 0.1 10 Normal 0.0-0.2 Lipid Panel 02/10/2020 [place] [address] [phone] Triglycerides Level 66 mg/dL Normal <150 Cholesterol Level 143 mg/dL Normal <200 HDL Cholesterol 80 mg/dL Normal >40 LDL Cholesterol 50 mg/dL Normal <100 Non-HDL-C 63 mg/dL Normal Cholesterol Risk Ratio 1.787 Normal <5 1 Units are mL/min/1.73 m2 Chronic Kidney Disease Staging per NKF: Stage I & II GFR >=60 Normal to Mildly Decreased Stage III GFR 30-59 Moderately Decreased Stage IV GFR 15-29 Severely Decreased Stage V GFR <15 Very Little GFR Left ESRD GFR <15 on [employer]VERSAL [employer] Procedures Description No Information Available Medical Devices Description No Information Available Encounters Type Date Location Provider Dx Diagnosis Office Visit 03/08/2020 3:45p Main Office Mabel Phelps FNP J44.1 Chronic obstructive pulmonary disease w (acute) exacerbation Office Visit 02/24/2020 7:15a Main Office Cindy Torres M.D. J 44.9 Chronic obstructive pulmonary disease, unspecified J84.10 Pulmonary fibrosis, unspecif ied I50.32 Chronic diastolic (congestiv e) heart failure I11.0 Hypertensive heart disease w ith heart failure Z23 Encounter for immunization Assessments Date Code Description Provider 03/08/2020 J44.1 Chronic obstructive pulmonary di sease with (acute) exacerbat Mabel Phelps FNP 02/24/2020 J44.9 Chronic obstructive pulmonary di sease, unspecified Cindy Torres M.D. 02/24/2020 J84.10 Pulmonary fibrosis, unspecified Cidny Torres M.D. 02/24/2020 I50.32 Chronic diastolic (congestive) h eart failure Cindy Torres M.D. 02/24/2020 I11.0 Hypertensive heart disease with heart failure Cindy Torres M.D. 02/24/2020 Z23 Encounter for immunization Cindy Briceno ams, M.D. 02/10/2020 I10 Essential (primary) hypertension Cindy Torres M.D. 02/10/2020 J44.9 Chronic obstructive pulmonary di sease, unspecified Cindy Torres M.D. 02/10/2020 J84.10 Pulmonary fibrosis, unspecified Cindy Torres M.D. 02/10/2020 I50.32 Chronic diastolic (congestive) h eart failure Cindy Torres M.D. 01/06/2020 I10 Essential (primary) hypertension Cindy Torres M.D. 01/06/2020 J44.9 Chronic obstructive pulmonary di sease, unspecified Cindy Torres M.D. 01/06/2020 J84.10 Pulmonary fibrosis, unspecified Cindy Torres M.D. 01/06/2020 I50.32 Chronic diastolic (congestive) h eart failure Cindy Torres M.D. 12/15/2019 I10 Essential (primary) hypertension Cindy Torres M.D. 12/15/2019 J44.9 Chronic obstructive pulmonary di sease, unspecified Cindy Torres M.D. 12/15/2019 J84.10 Pulmonary fibrosis, unspecified Cindy Torres M.D. 12/15/2019 I50.32 Chronic diastolic (congestive) h eart failure Cindy Torres M.D. 11/04/2019 I10 Essential (primary) hypertension Cindy Torres M.D. 11/04/2019 J44.9 Chronic obstructive pulmonary di sease, unspecified Cindy Torres M.D. 11/04/2019 J84.10 Pulmonary fibrosis, unspecified Cindy Torres M.D. 11/04/2019 I50.32 Chronic diastolic (congestive) h eart failure Cindy Torres M.D. 10/13/2019 I10 Essential (primary) hypertension Cindy Torres M.D. 10/13/2019 J44.9 Chronic obstructive pulmonary di sease, unspecified Cindy Torres M.D. 10/13/2019 J84.10 Pulmonary fibrosis, unspecified Cindy Torres M.D. 10/13/2019 I50.32 Chronic diastolic (congestive) h eart failure Cindy Torres M.D. Plan of Treatment Future Appointment(s):* 08/24/2020 7:10 am - Cindy Torres M.D. at Main Office Functional Status Functional Condition Comment Date Status Partial dentures Active Independent with all ADL's Activ e Independent with all IADL's Acti ve Bifocal glasses Active Mental Status Mental Condition Comment Date Status None Active Referrals Description No Information Available
--- OUTSIDE RECORDS SUMMARY | 2020-05-19 06:57 | CCD | Continuity of Care Document ---
Author Author Bakari PHELPS [facility] Organization Unknown Address [address] [place] [address] Phone [phone] Problems Active Problems Provider Date Essential hypertension [...] CPT Code Status Date Vaccine Lot # [id number] Given 02/24/2020 Influenza Virus Vaccine, Quadrivalent,age 3 and up,multidose vial [id number] 91940 Given 02/21/2019 Influenza Virus Vaccine, Quadrivalent,age 3 and up,multidose vial [id number] Given 03/20/2018 Influenza Virus, quadravalent, preservative free,age 3 and up [id number] 39575 Given 08/28/2016 Prevnar 13 For Adults [id number] Given 02/05/2013 Influenza Vaccine (Fluzone)( medicare) [id number] Given 02/05/2013 Pneumococcal Vaccine [id number] 94933 Given 02/05/2013 Influenza Vaccination [id number] 47123 Given 01/31/2007 Influenza Vaccination [id number] [id number] Refused 01/04/2015 Influenza Vaccination Vital Signs Date [...] Flow Rate 497 Estimated Peak Flow Rate [place] Body Weight 166 lb BMI (Body Mass Index) 22.7 kg/m2 08/22/2019 7:18am BP Systolic 133 mmHg BP Diastolic 69 mmHg Heart Rate 58 /min Body Temperature 97.0 F Respiratory Rate 18 /min Height 70.75 inches 5'10.75" Weight 169.00 lb O2 % BldC Oximetry 94 % Peak Expiratory Flow Rate 494 Estimated Peak Flow Rate [place] Body Weight 166 lb BMI (Body Mass Index) 23.7 kg/m2 Results Test Acquired Date Facility Test Result H/L Range Note CMP - Complete Panel (14 Test) 02/10/2020 [address] [place], [place] [id number] [phone] Glucose, Fasting 95 mg/dL Normal 70-100 Blood [...] CBC With Auto Diff 02/10/2020 [place] [address] [phone] White Blood Count 7.3 10 Normal 4.0-10.0 [...] 36.0-66.0 Lymph % 20.9 % Low 24.0-44.0 [place] % 8.9 % High 0.0-5.0 Eos % 2.5 % Normal 0.0-3.0 Baso % 0.7 % Normal 0.0-1.0 Immature Granulocyte % 0.3 % Normal 0-3.0 Nucleated Red Blood Cell % 0.0 % Normal 0-0 Neutrophils # 4.9 10 Normal 1.5-8.5 Lymph # 1.5 10 Normal 1.5-5.0 [place] # 0.7 10 Normal 0.0-0.8 Eos # 0.2 10 Normal 0.0-0.5 Baso # 0.1 10 Normal 0.0-0.2 Lipid Panel 02/10/2020 [place] [address] [phone] Triglycerides Level 66 mg/dL Normal <150 Cholesterol [...] Little GFR Left ESRD GFR <15 on [facility] QA LAB TECHNICIAN Procedures Description No Information Available Medical Devices [...] Torres M.D. 02/24/2020 J84.10 Pulmonary fibrosis, unspecified Cindy Torres M.D. 02/24/2020 I50.32 Chronic diastolic (congestive) [...] - Cindy Torres M.D. at Main Office 03/08/2020 - Mabel Phelps FNP* J44.1 Chronic obstructive pulmonary disease with (acute) exacerbat* New Medication:* Prednisone 10 mg - 4 po q d xs 3 d then 3 q d xs 3 d then 2 q d xs 3 d then 1 qd for 3 days then 1/2 qd for 4 days * Levofloxacin 500 mg - one tab daily for seven days Functional Status Functional Condition Comment Date Status Partial dentures Active Independent with all ADL's Activ e Independent with all IADL's Acti ve Bifocal glasses Active Mental Status Mental Condition Comment Date Status None Active Referrals Description No Information Available
--- OUTSIDE RECORDS SUMMARY | 2020-05-19 06:58 | CCD | Continuity of Care Document ---
Author Author Bakari TORRES M.D. Organization Unknown Address [address] [place] [address] Phone [phone] Problems Active Problems Provider Date Essential hypertension [...] Qnty Indications Ordering Provide r Date Spiriva Handihaler 18mcg Capsules inhale the contents [...] CPT Code Status Date Vaccine Lot # [id number] Given 02/24/2020 Influenza Virus Vaccine, Quadrivalent,age 3 and up,multidose vial [id number] 08991 Given 02/21/2019 Influenza Virus Vaccine, Quadrivalent,age 3 and up,multidose vial [id number] 03848 Given 03/20/2018 Influenza Virus, quadravalent, preservative free,age 3 and up [id number] 88588 Given 08/28/2016 Prevnar 13 For Adults [id number] Given 02/05/2013 Influenza Vaccine (Fluzone)( medicare) [id number] Given 02/05/2013 Pneumococcal Vaccine [id number] Given 02/05/2013 Influenza Vaccination [id number] 06240 Given 01/31/2007 Influenza Vaccination [id number] 66366 Refused 01/04/2015 Influenza Vaccination Vital Signs Date [...] Flow Rate 497 Estimated Peak Flow Rate [place] Body Weight 166 lb BMI (Body Mass Index) 22.7 kg/m2 08/22/2019 7:18am BP Systolic 133 mmHg BP Diastolic 69 mmHg Heart Rate 58 /min Body Temperature 97.0 F Respiratory Rate 18 /min Height 70.75 inches 5'10.75" Weight 169.00 lb O2 % BldC Oximetry 94 % Peak Expiratory Flow Rate 494 Estimated Peak Flow Rate [place] Body Weight 166 lb BMI (Body Mass Index) 23.7 kg/m2 Results Test Acquired Date Facility Test Result H/L Range Note CMP - Complete Panel (14 Test) 02/10/2020 Patient [address] [place] [id number] [phone] Glucose, Fasting 95 mg/dL Normal 70-100 Blood [...] CBC With Auto Diff 02/10/2020 Patient Service [place], [place] [id number] [phone] White Blood Count 7.3 10 Normal 4.0-10.0 [...] 36.0-66.0 Lymph % 20.9 % Low 24.0-44.0 [place] % 8.9 % High 0.0-5.0 Eos % 2.5 % Normal 0.0-3.0 Baso % 0.7 % Normal 0.0-1.0 Immature Granulocyte % 0.3 % Normal 0-3.0 Nucleated Red Blood Cell % 0.0 % Normal 0-0 Neutrophils # 4.9 10 Normal 1.5-8.5 Lymph # 1.5 10 Normal 1.5-5.0 [place] # 0.7 10 Normal 0.0-0.8 Eos # 0.2 10 Normal 0.0-0.5 Baso # 0.1 10 Normal 0.0-0.2 Lipid Panel 02/10/2020 [place] [address] [phone] Triglycerides Level 66 mg/dL Normal <150 Cholesterol [...] Little GFR Left ESRD GFR <15 on MANAGER STYLE Procedures Description No Information Available Medical Devices Description No Information Available Encounters Description No Information Available Assessments Date Code Description Provider 02/10/2020 I10 Essential (primary) hypertension Cindy Torres M.D. 02/10/2020 J44.9 Chronic obstructive pulmonary di sease, unspecified Cindy Torres M.D. 02/10/2020 J84.10 Pulmonary fibrosis, unspecified Cindy Torres M.D. 02/10/2020 I50.32 Chronic diastolic (congestive) h eart failure Cindy Torres M.D. 01/06/2020 I10 Essential (primary) hypertension Cindy Torres M.D. 01/06/2020 J44.9 Chronic obstructive pulmonary di sease, enocified Cindy Torres M.D. 01/06/2020 J84.10 Pulmonary fibrosis, unspecified Cidny Torres M.D. 01/06/2020 I50.32 Chronic diastolic (congestive) [...] 11/04/2019 J44.9 Chronic obstructive pulmonary di sease, enocified Cindy Torres M.D. 11/04/2019 J84.10 Pulmonary fibrosis, unspecified Cindy Torres M.D. 11/04/2019 I50.32 Chronic diastolic (congestive) h eart failure Cindy Torres M.D. 10/13/2019 I10 Essential (primary) hypertension Cindy Torres M.D. 10/13/2019 J44.9 Chronic obstructive pulmonary di sease, unspecified Cindy Torres M.D. 10/13/2019 J84.10 Pulmonary fibrosis, unspecified Cindy Torres M.D. 10/13/2019 I50.32 Chronic diastolic (congestive) h eart failure Cindy Torres M.D. 09/02/2019 I10 Essential (primary) hypertension Cindy Torres M.D. 09/02/2019 J44.9 Chronic obstructive pulmonary di sease, unspecified Cindy Torres M.D. 09/02/2019 J84.10 Pulmonary fibrosis, unspecified Cindy Torres M.D. 09/02/2019 I50.32 Chronic diastolic (congestive) h eart failure Cindy Torres M.D. Plan of Treatment No Information Available Functional Status Functional Condition Comment Date Status Partial dentures Active Independent with all ADL's Activ e Independent with all IADL's Acti ve Bifocal glasses Active Mental Status Mental Condition Comment Date Status None Active Referrals Description No Information Available
--- OUTSIDE RECORDS SUMMARY | 2020-05-19 06:58 | CCD ---
Author Author [facility] Organization [facility] Address Unknown Phone Unavailable Care Team Providers Care Office Runner Name Role Phone Brian, Sonal White MD Unavailable Unavailable Brian, Sonal White MD Unavailable Unavailable Brian, Sonal White MD Unavailable Unavailable Brian, Sonal White MD Unavailable Unavailable Brian, Sonal White MD Unavailable Unavailable Brian, Sonal White MD Unavailable Unavailable Brian, Sonal White MD Unavailable Unavailable Brian, Sonal White MD Unavailable Unavailable Brian, Sonla White MD Unavailable Unavailable Brian, Sonal White MD Unavailable Unavailable Brian, Sonal White MD Unavailable Unavailable Brian, Sonal White MD Unavailable Unavailable Brian, Sonal White MD Unavailable Unavailable Brian, Sonal White MD Unavailable Unavailable Brian, Sonal White MD Unavailable Unavailable Brian, Sonal White MD Unavailable Unavailable Brian, Sonal White MD Unavailable Unavailable Brian, Sonal White MD Unavailable Unavailable Brian, Sonal White MD Unavailable Unavailable Brian, Sonal White MD Unavailable Unavailable Brian, Sonal White MD Unavailable Unavailable Brian, Sonal White MD Unavailable Unavailable Brian, Sonal White MD Unavailable Unavailable Brian, Sonal White MD Unavailable Unavailable Brian, Sonal White MD Unavailable Unavailable Brian, Sonal White MD Unavailable Unavailable Brian, Sonal White MD Unavailable Unavailable Brian, Sonal White MD Unavailable Unavailable Brian, Sonal White MD Unavailable Unavailable Brian, Sonal White MD Unavailable Unavailable Brian, Sonal White MD Unavailable Unavailable Brian, Sonal White MD Unavailable Unavailable Brian, Sonal White MD Unavailable Unavailable Brian, Sonal White MD Unavailable Unavailable Brian, Sonal White MD Unavailable Unavailable Brian, Sonal White MD Unavailable Unavailable Brian, Sonal White MD Unavailable Unavailable Brian, Sonal White MD Unavailable Unavailable Brian, Sonal White MD Unavailable Unavailable Brian, Sonal White MD Unavailable Unavailable Brian, Sonal White MD Unavailable Unavailable Brian, Sonal White MD Unavailable Unavailable Brian, Sonal White MD Unavailable Unavailable Brian, Sonal White MD Unavailable Unavailable Brian, A Cindy MD Unavailable Unavailable Brian, A Cindy MD Unavailable Unavailable Brian, A Cindy MD Unavailable Unavailable Brian, A Cindy MD Unavailable Unavailable Brian, A Cindy MD Unavailable Unavailable Brian, A Cindy MD Unavailable Unavailable Brian, A Cindy MD Unavailable Unavailable Brian, A Cindy MD Unavailable Unavailable Brian, A Cindy MD Unavailable Unavailable Brian, A Cindy MD Unavailable Unavailable Brian, A Cindy MD Unavailable Unavailable Brian, A Cindy MD Unavailable Unavailable Brian, A Cindy MD Unavailable Unavailable Brian, A Cindy MD Unavailable Unavailable Brian, A Cindy MD Unavailable Unavailable Brian, A Cindy MD Unavailable Unavailable Brian, A Cindy MD Unavailable Unavailable Brian, A Cindy MD Unavailable Unavailable Brian, A Cindy MD Unavailable Unavailable Brian, A Cindy MD Unavailable Unavailable Brian, A Cindy MD Unavailable Unavailable Brian, A Cindy MD Unavailable Unavailable Brian, A Cindy MD Unavailable Unavailable Brian, A Cindy MD Unavailable Unavailable Brian, A Cindy MD Unavailable Unavailable Brian, A Cindy MD Unavailable Unavailable Brian, A Cindy MD Unavailable Unavailable Brian, A Cindy MD Unavailable Unavailable Brain, A Cindy MD Unavailable Unavailable Brian, A Cindy MD Unavailable Unavailable Brian, A Cindy NIETO Unavailable Unavailable Pleskach, Mabel BEAUTY OPERATOR Unavailable Unavailable Pleskach, Mabel BEAUTY OPERATOR Unavailable Unavailable Pleskach, Mabel BEAUTY OPERATOR Unavailable Unavailable Pleskach, Mabel BEAUTY OPERATOR Unavailable Unavailable Pleskach, Mabel BEAUTY OPERATOR Unavailable Unavailable Pleskach, Mabel BEAUTY OPERATOR Unavailable Unavailable Pleskach, Mabel BEAUTY OPERATOR Unavailable Unavailable Pleskach, Mabel BEAUTY OPERATOR Unavailable Unavailable Pleskach, Mabel BEAUTY OPERATOR Unavailable Unavailable Pleskach, Mabel BEAUTY OPERATOR Unavailable Unavailable Pleskach, Mabel BEAUTY OPERATOR Unavailable Unavailable Pleskach, Mabel BEAUTY OPERATOR Unavailable Unavailable Pleskach, Mabel BEAUTY OPERATOR Unavailable Unavailable Pleskach, Mabel BEAUTY OPERATOR Unavailable Unavailable Pleskach, Mabel BEAUTY OPERATOR Unavailable Unavailable Pleskach, Mabel BEAUTY OPERATOR Unavailable Unavailable Pleskach, Mabel BEAUTY OPERATOR Unavailable Unavailable Pleskach, Mabel BEAUTY OPERATOR Unavailable Unavailable Pleskach, Mabel BEAUTY OPERATOR Unavailable Unavailable Pleskach, Mabel BEAUTY OPERATOR Unavailable Unavailable Pleskach, Mabel BEAUTY OPERATOR Unavailable Unavailable Pleskach, Mabel BEAUTY OPERATOR Unavailable Unavailable Pleskach, Mabel BEAUTY OPERATOR Unavailable Unavailable Pleskach, Mabel BEAUTY OPERATOR Unavailable Unavailable Pleskach, Mabel BEAUTY OPERATOR Unavailable Unavailable Pleskach, Mabel BEAUTY OPERATOR Unavailable Unavailable Pleskach, Mabel BEAUTY OPERATOR Unavailable Unavailable Pleskach, Mabel BEAUTY OPERATOR Unavailable Unavailable Pleskach, Mabel BEAUTY OPERATOR Unavailable Unavailable Petrancosta, Winston Brandee PA-C Unavailable Unavailabl e Petrancosta, Winston Brandee PA-C Unavailable Unavailabl e Petrancosta, Winston Brandee PA-C Unavailable Unavailabl e Petrancosta, Winston Brandee PA-C Unavailable Unavailabl e Petrancosta, Winston Brandee PA-C Unavailable Unavailabl e Petrancosta, Winston Brandee PA-C Unavailable Unavailabl e Petrancosta, Winston Brandee PA-C Unavailable Unavailabl e Petrancosta, Winston Brandee PA-C Unavailable Unavailabl e Petrancosta, Winston Brandee PA-C Unavailable Unavailabl e Petrancosta, Winston Brandee PA-C Unavailable Unavailabl e Petrancosta, Winston Brandee PA-C Unavailable Unavailabl e Petrancosta, Winston Brandee PA-C Unavailable Unavailabl e Petrancosta, Winston Brandee PA-C Unavailable Unavailabl e Petrancosta, Winston Brandee PA-C Unavailable Unavailabl e Petrancosta, Winston Brandee PA-C Unavailable Unavailabl e Petrancosta, Winston Brandee PA-C Unavailable Unavailabl e Petrancosta, Winston Brandee PA-C Unavailable Unavailabl e Petrancosta, Winston Brandee PA-C Unavailable Unavailabl e Petrancosta, Winston Brandee PA-C Unavailable Unavailabl e Petrancosta, Winston Brandee PA-C Unavailable Unavailabl e Petrancosta, Winston Brandee PA-C Unavailable Unavailabl e Petrancosta, Winston Brandee PA-C Unavailable Unavailabl e Petrancosta, Winston Brandee PA-C Unavailable Unavailabl e Re-disclosure Warning The records that you are about to access may contain information from federally-assisted alcohol or drug abuse programs. If such information is present, then the following federally mandated warning applies: This information has been disclosed to you from records protected by federal confidentiality rules (42 CFR part 2). The federal rules prohibit you from making any further disclosure of this information unless further disclosure is expressly permitted by the written consent of the person to whom it pertains or as otherwise permitted by 42 CFR part 2. A general authorization for the release of medical or other information is NOT sufficient for this purpose. The Federal rules restrict any use of the information to criminally investigate or prosecute any alcohol or drug abuse patient.The records that you are about to access may contain highly sensitive health information, the redisclosure of which is protected by Article 27-F of the [facility] Public Health law. If you continue you may have access to information: Regarding HIV / AIDS; Provided by facilities licensed or operated by the [facility] Office of Mental Health; or Provided by the [facility] Office for People With Developmental Disabilities. If such information is present, then the following [facility] mandated warning applies: This information has been disclosed to you from confidential records which are protected by state law. State law prohibits you from making any further disclosure of this information without the specific written consent of the person to whom it pertains, or as otherwise permitted by law. Any unauthorized further disclosure in violation of state law may result in a fine or senior living sentence or both. A general authorization for the release of medical or other information is NOT sufficient authorization for further disc losure. Family History Family Member Name Family Member Gender Family Member Status Date o f Status Description Data Source(s) Unknown Male Problem [facility] ([facility]) Unknown Unknown Problem [facility] ([facility] Unknown Female Problem [facility] ([facility], ) Encounters Encounter Providers Location Date Indications Data Source(s ) Outpatient Attender: Mabel CHRISTOPHER Main Office 03/08/2020 0 2:45:00 PM EST [facility] ([facility] Outpatient Attender: Cindy Torres MD Main Office 02/24/2020 06:15:0 0 AM EST [facility] ([facility] Outpatient Attender: Cindy Torres MD Main Office 08/22/2019 07:15:0 0 AM EDT [facility] ([facility] Outpatient Attender: Mabel CHRISTOPHER Main Office 07/14/2019 0 8:15:00 AM EDT [facility] ([facility] Outpatient Attender: Brandee Bell PA-C Main Office 07/07/2019 08:15:00 AM EDT [facility] ([facility] Outpatient Attender: Cindy Torres MD Main Office 06/23/2019 08:30:0 0 AM EDT [facility] ([facility] Outpatient Attender: Cindy Torres MD Main Office 03/26/2019 08:00:0 0 AM EST [facility] ([facility] Immunizations Vaccine Date Status Description Data Source(s) New in 2012. IIV4 02/24/2020 06:28:00 AM EST completed [facility] ([facility] Medications Medication Brand Name Start Date Product Form Dose Route Admi nistrative Instructions Pharmacy Instructions Status Indications Reaction Description Data Source(s) 17.5-3.13-1.6 gram 05/13/2020 12:00:00 AM EST recon soln 354 TAKE BY MOUTH PER DOCTORS BOWEL PREP INSTRUCTIONS TAKE BY MOUTH PER DOCTORS BOWEL PREP INSTRUCTIONS SOLD: 05/14/2020 [facility] 24-26 mg 04/26/2020 12:00:00 AM EST tablet 60 TAKE ONE TABLET BY MOUTH TWICE A DAY TAKE ONE TABLET BY MOUTH TWICE A DAY SOLD: 04/27/2020 [facility] 500 mg 04/21/2020 12:00:00 AM EST capsule 21 TAKE ONE CAPSULE BY MOUTH EVERY 8 HOURS FOR 7 DAYS TAKE ONE CAPSULE BY MOUTH EVERY 8 HOURS FOR 7 DAYS NA[facility] 5-325 mg 04/21/2020 12:00:00 AM EST tablet 16 TAKE 1 TABLET BY MOUTH EVERY 6 HOURS MAY ALTERNATE WITH IBUPROFEN MAXIMUM DAILY DOSE = 4 TABLETS TAKE 1 TABLET BY MOUTH EVERY 6 HOURS MAY ALTERNATE WITH IBUPROFEN MAXIMUM DAILY DOSE = 4 TABLETS SOLD: 04/21/2020 [facility] 0.4 mg 04/20/2020 12:00:00 AM EST capsule 30 TAKE ONE CAPSULE BY MOUTH AT BEDTIME TAKE ONE CAPSULE BY MOUTH AT BEDTIME SOLD: 04/20/2020 [facility] 62.5 mcg/actuation 04/20/2020 12:00:00 AM EST blister with d evice 30 INHALE ONE PUFF BY MOUTH EVERY DAY INHALE ONE PUFF BY MOUTH EVERY DAY SOLD: 04/20/2020 [facility] 10 mg 03/09/2020 12:00:00 AM EST tablet 36 TAKE 4 TABLETS ONCE DAILY FOR 3 DAYS THEN TAKE 3 TABLETS DAILY FOR 3 DAYS, THEN TAKE 2 TABLETS DAILY FOR 3 DAYS, THEN TAKE 1 TABLET DAILY FOR 3 DAYS, THEN TAKE ONE-HALF TABLET DAILY FOR 4 DAYS TAKE 4 TABLETS ONCE DAILY FOR 3 DAYS THEN TAKE 3 TABLETS DAILY FOR 3 DAYS, THEN TAKE 2 TABLETS DAILY FOR 3 DAYS, THEN TAKE 1 TABLET DAILY FOR 3 DAYS, THEN TAKE ONE-HALF TABLET DAILY FOR 4 DAYS SOLD: 03/09/2020 [facility] 500 mg 03/09/2020 12:00:00 AM EST tablet 7 TAKE ONE TABLET BY MOUTH EVERY DAY FOR 7 DAYS TAKE ONE TABLET BY MOUTH EVERY DAY FOR 7 DAYS SOLD: 03/09/2020 [facility] Prednisone 10 MG Oral Tablet Prednisone 03/08/2020 12:00:00 AM EST ORAL active [facility] ([facility] Levofloxacin 500 MG Oral Tablet Levofloxacin 03/08/2020 12:00:00 AM EST active [facility] ([facility] 160-4.5 mcg/actuation 02/24/2020 12:00:00 AM EST HFA aerosol inhaler 30 INHALE TWO PUFFS BY MOUTH TWICE A DAY INHALE TWO PUFFS BY MOUTH TWICE A DAY SOLD: 05/05/2020 [facility] 25 mg 02/24/2020 12:00:00 AM EST tablet 45 TAKE 1/2 TABLET BY MOUTH IN THE MORNING TAKE 1/2 TABLET BY MOUTH IN THE MORNING SOLD: 02/24/2020 [facility] 160-4.5 mcg/actuation 02/24/2020 12:00:00 AM EST HFA aerosol inhaler 30 INHALE TWO PUFFS BY MOUTH TWICE A DAY INHALE TWO PUFFS BY MOUTH TWICE A DAY SOLD: 02/24/2020 [facility] 5 mg 01/29/2020 12:00:00 AM EDT tablet 90 TAKE ONE TABLET BY MOUTH TWICE A DAY TAKE ONE TABLET BY MOUTH TWICE A DAY SOLD: 03/16/2020 [facility] 5 mg 01/29/2020 12:00:00 AM EDT tablet 90 TAKE ONE TABLET BY MOUTH TWICE A DAY TAKE ONE TABLET BY MOUTH TWICE A DAY SOLD: 01/31/2020 [facility] 5 mg 01/29/2020 12:00:00 AM EDT tablet 90 TAKE ONE TABLET BY MOUTH TWICE A DAY TAKE ONE TABLET BY MOUTH TWICE A DAY SOLD: 04/27/2020 [facility] 90 mcg/actuation 01/20/2020 12:00:00 AM EDT HFA aerosol inha ler 25 INHALE 2 PUFFS BY MOUTH EVERY 4 HOURS NEEDED INHALE 2 PUFFS BY MOUTH EVERY 4 HOURS NEEDED SOLD: 04/28/2020 [facility] 90 mcg/actuation 01/20/2020 12:00:00 AM EDT HFA aerosol inha ler 25 INHALE 2 PUFFS BY MOUTH EVERY 4 HOURS NEEDED INHALE 2 PUFFS BY MOUTH EVERY 4 HOURS NEEDED SOLD: 01/22/2020 [facility] 25 mg 01/01/2020 12:00:00 AM EDT tablet 30 TAKE ONE-HALF TABLET BY MOUTH EVERY MORNING TAKE ONE-HALF TABLET BY MOUTH EVERY MORNING SOLD: 01/02/2020 [facility] 160-4.5 mcg/actuation 09/30/2019 12:00:00 AM EDT HFA aerosol inhaler 30 INHALE TWO PUFFS BY MOUTH TWICE A DAY INHALE TWO PUFFS BY MOUTH TWICE A DAY SOLD: 10/01/2019 [facility] 160-4.5 mcg/actuation 09/30/2019 12:00:00 AM EDT HFA aerosol inhaler 30 INHALE TWO PUFFS BY MOUTH TWICE A DAY INHALE TWO PUFFS BY MOUTH TWICE A DAY SOLD: 12/16/2019 [facility] 24-26 mg 09/24/2019 12:00:00 AM EDT tablet 60 TAKE ONE TABLET BY MOUTH TWICE A DAY TAKE ONE TABLET BY MOUTH TWICE A DAY SOLD: 12/24/2019 [facility] 24-26 mg 09/24/2019 12:00:00 AM EDT tablet 60 TAKE ONE TABLET BY MOUTH TWICE A DAY TAKE ONE TABLET BY MOUTH TWICE A DAY SOLD: 11/25/2019 [facility] 24-26 mg 09/24/2019 12:00:00 AM EDT tablet 60 TAKE ONE TABLET BY MOUTH TWICE A DAY TAKE ONE TABLET BY MOUTH TWICE A DAY SOLD: 10/25/2019 [facility] 24-26 mg 09/24/2019 12:00:00 AM EDT tablet 60 TAKE ONE TABLET BY MOUTH TWICE A DAY TAKE ONE TABLET BY MOUTH TWICE A DAY SOLD: 09/25/2019 [facility] 24-26 mg 09/24/2019 12:00:00 AM EDT tablet 60 TAKE ONE TABLET BY MOUTH TWICE A DAY TAKE ONE TABLET BY MOUTH TWICE A DAY SOLD: 01/25/2020 [facility] 24-26 mg 09/24/2019 12:00:00 AM EDT tablet 60 TAKE ONE TABLET BY MOUTH TWICE A DAY TAKE ONE TABLET BY MOUTH TWICE A DAY SOLD: 03/27/2020 [facility] 24-26 mg 09/24/2019 12:00:00 AM EDT tablet 60 TAKE ONE TABLET BY MOUTH TWICE A DAY TAKE ONE TABLET BY MOUTH TWICE A DAY SOLD: 02/24/2020 [facility] 0.4 mg 09/17/2019 12:00:00 AM EDT capsule 30 TAKE ONE CAPSULE BY MOUTH AT BEDTIME TAKE ONE CAPSULE BY MOUTH AT BEDTIME SOLD: 03/19/2020 [facility] 0.4 mg 09/17/2019 12:00:00 AM EDT capsule 30 TAKE ONE CAPSULE BY MOUTH AT BEDTIME TAKE ONE CAPSULE BY MOUTH AT BEDTIME SOLD: 02/20/2020 [facility] 0.4 mg 09/17/2019 12:00:00 AM EDT capsule 30 TAKE ONE CAPSULE BY MOUTH AT BEDTIME TAKE ONE CAPSULE BY MOUTH AT BEDTIME SOLD: 10/21/2019 [facility] 0.4 mg 09/17/2019 12:00:00 AM EDT capsule 30 TAKE ONE CAPSULE BY MOUTH AT BEDTIME TAKE ONE CAPSULE BY MOUTH AT BEDTIME SOLD: 09/20/2019 [facility] 0.4 mg 09/17/2019 12:00:00 AM EDT capsule 30 TAKE ONE CAPSULE BY MOUTH AT BEDTIME TAKE ONE CAPSULE BY MOUTH AT BEDTIME SOLD: 11/22/2019 [facility] 0.4 mg 09/17/2019 12:00:00 AM EDT capsule 30 TAKE ONE CAPSULE BY MOUTH AT BEDTIME TAKE ONE CAPSULE BY MOUTH AT BEDTIME SOLD: 12/19/2019 [facility] 0.4 mg 09/17/2019 12:00:00 AM EDT capsule 30 TAKE ONE CAPSULE BY MOUTH AT BEDTIME TAKE ONE CAPSULE BY MOUTH AT BEDTIME SOLD: 01/17/2020 [facility] 5 mg 07/30/2019 12:00:00 AM EDT tablet 90 TAKE ONE TABLET BY MOUTH TWICE A DAY TAKE ONE TABLET BY MOUTH TWICE A DAY SOLD: 07/31/2019 [facility] 5 mg 07/30/2019 12:00:00 AM EDT tablet 90 TAKE ONE TABLET BY MOUTH TWICE A DAY TAKE ONE TABLET BY MOUTH TWICE A DAY SOLD: 10/31/2019 [facility] 5 mg 07/30/2019 12:00:00 AM EDT tablet 90 TAKE ONE TABLET BY MOUTH TWICE A DAY TAKE ONE TABLET BY MOUTH TWICE A DAY SOLD: 12/16/2019 [facility] 5 mg 07/30/2019 12:00:00 AM EDT tablet 90 TAKE ONE TABLET BY MOUTH TWICE A DAY TAKE ONE TABLET BY MOUTH TWICE A DAY SOLD: 09/15/2019 [facility] 500 mg 07/14/2019 12:00:00 AM EDT tablet 7 TAKE ONE TABLET BY MOUTH EVERY DAY FOR 7 DAYS TAKE ONE TABLET BY MOUTH EVERY DAY FOR 7 DAYS SOLD: 07/14/2019 [facility] Levofloxacin 500 MG Oral Tablet Levofloxacin 07/14/2019 12:00:00 AM EDT completed [facility] ([facility] 2.5 mg /3 mL (0.083 %) 07/10/2019 12:00:00 AM EDT solu tion for nebulization 75 USE 1 VIAL EVERY 6 HOURS NEEDED FOR C OUGH USE 1 VIAL EVERY 6 HOURS NEEDED FOR COUGH SOLD: 07/13/2019 [facility] 2.5 mg /3 mL (0.083 %) 07/10/2019 12:00:00 AM EDT solu tion for nebulization 75 USE 1 VIAL EVERY 6 HOURS NEEDED FOR C OUGH USE 1 VIAL EVERY 6 HOURS NEEDED FOR COUGH SOLD: 04/10/2020 [facility] 2.5 mg /3 mL (0.083 %) 07/10/2019 12:00:00 AM EDT solu tion for nebulization 75 USE 1 VIAL EVERY 6 HOURS NEEDED FOR C OUGH USE 1 VIAL EVERY 6 HOURS NEEDED FOR COUGH SOLD: 03/16/2020 [facility] 2.5 mg /3 mL (0.083 %) 07/10/2019 12:00:00 AM EDT solu tion for nebulization 75 USE 1 VIAL EVERY 6 HOURS NEEDED FOR C OUGH USE 1 VIAL EVERY 6 HOURS NEEDED FOR COUGH SOLD: 04/28/2020 [facility] 25 mg 07/07/2019 12:00:00 AM EDT tablet 30 TAKE ONE-HALF TABLET BY MOUTH EVERY MORNING TAKE ONE-HALF TABLET BY MOUTH EVERY MORNING SOLD: 07/09/2019 [facility] 18 mcg 07/07/2019 12:00:00 AM EDT capsule, w/inhalation d evice 30 INHALE THE CONTENTS OF ONE CAPSULE VIA HANDIHALER BY MOUTH DAILY INHALE THE CONTENTS OF ONE CAPSULE VIA HANDIHALER BY MOUTH DAILY SOLD: 03/13/2020 [facility] 18 mcg 07/07/2019 12:00:00 AM EDT capsule, w/inhalation d evice 30 INHALE THE CONTENTS OF ONE CAPSULE VIA HANDIHALER BY MOUTH DAILY INHALE THE CONTENTS OF ONE CAPSULE VIA HANDIHALER BY MOUTH DAILY SOLD: 04/10/2020 [facility] 10 mg 07/07/2019 12:00:00 AM EDT tablet 30 TAKE 4 TABLETS BY MOUTH ONCE DAILY FOR 3 DAYS THEN 3 TABLETS ONCE DAILY FOR 3 DAYS THEN 2 TABLETS ONCE DAILY FOR 3 DAYS THEN 1 TABLET ONCE DAILY FOR 3 DAYS TAKE 4 TABLETS BY MOUTH ONCE DAILY FOR 3 DAYS THEN 3 TABLETS ONCE DAILY FOR 3 DAYS THEN 2 TABLETS ONCE DAILY FOR 3 DAYS THEN 1 TABLET ONCE DAILY FOR 3 DAYS SOLD: 07/07/2019 [facility] 18 mcg 07/07/2019 12:00:00 AM EDT capsule, w/inhalation d evice 30 INHALE THE CONTENTS OF ONE CAPSULE VIA HANDIHALER BY MOUTH DAILY INHALE THE CONTENTS OF ONE CAPSULE VIA HANDIHALER BY MOUTH DAILY SOLD: 08/19/2019 [facility] Prednisone 10 MG Oral Tablet Prednisone 07/07/2019 12:00:00 AM EDT ORAL completed [facility] ([facility] 18 mcg 07/07/2019 12:00:00 AM EDT capsule, w/inhalation d evice 30 INHALE THE CONTENTS OF ONE CAPSULE VIA HANDIHALER BY MOUTH DAILY INHALE THE CONTENTS OF ONE CAPSULE VIA HANDIHALER BY MOUTH DAILY SOLD: 02/11/2020 [facility] 25 mg 07/07/2019 12:00:00 AM EDT tablet 30 TAKE ONE-HALF TABLET BY MOUTH EVERY MORNING TAKE ONE-HALF TABLET BY MOUTH EVERY MORNING SOLD: 10/31/2019 [facility] atorvastatin 40 MG Oral Tablet ATORVASTATIN CALCIUM 07/07/2019 1 2:00:00 AM EDT tablet 90 TAKE ONE TABLET BY MOUTH EVERY D AY TAKE ONE TABLET BY MOUTH EVERY DAY SOLD: 01/17/2020 [facility] 25 mg 07/07/2019 12:00:00 AM EDT tablet 30 TAKE ONE-HALF TABLET BY MOUTH EVERY MORNING TAKE ONE-HALF TABLET BY MOUTH EVERY MORNING SOLD: 09/03/2019 [facility] 18 mcg 07/07/2019 12:00:00 AM EDT capsule, w/inhalation d evice 30 INHALE THE CONTENTS OF ONE CAPSULE VIA HANDIHALER BY MOUTH DAILY INHALE THE CONTENTS OF ONE CAPSULE VIA HANDIHALER BY MOUTH DAILY SOLD: 09/23/2019 [facility] 18 mcg 07/07/2019 12:00:00 AM EDT capsule, w/inhalation d evice 30 INHALE THE CONTENTS OF ONE CAPSULE VIA HANDIHALER BY MOUTH DAILY INHALE THE CONTENTS OF ONE CAPSULE VIA HANDIHALER BY MOUTH DAILY SOLD: 01/02/2020 [facility] 18 mcg 07/07/2019 12:00:00 AM EDT capsule, w/inhalation d evice 30 INHALE THE CONTENTS OF ONE CAPSULE VIA HANDIHALER BY MOUTH DAILY INHALE THE CONTENTS OF ONE CAPSULE VIA HANDIHALER BY MOUTH DAILY SOLD: 10/31/2019 [facility] 18 mcg 07/07/2019 12:00:00 AM EDT capsule, w/inhalation d evice 30 INHALE THE CONTENTS OF ONE CAPSULE VIA HANDIHALER BY MOUTH DAILY INHALE THE CONTENTS OF ONE CAPSULE VIA HANDIHALER BY MOUTH DAILY SOLD: 12/05/2019 [facility] 18 mcg 07/07/2019 12:00:00 AM EDT capsule, w/inhalation d evice 30 INHALE THE CONTENTS OF ONE CAPSULE VIA HANDIHALER BY MOUTH DAILY INHALE THE CONTENTS OF ONE CAPSULE VIA HANDIHALER BY MOUTH DAILY SOLD: 07/09/2019 [facility] atorvastatin 40 MG Oral Tablet ATORVASTATIN CALCIUM 07/07/2019 1 2:00:00 AM EDT tablet 90 TAKE ONE TABLET BY MOUTH EVERY D AY TAKE ONE TABLET BY MOUTH EVERY DAY SOLD: 04/17/2020 [facility] 40 mg 07/07/2019 12:00:00 AM EDT tablet 90 TAKE ONE TABLET BY MOUTH EVERY DAY TAKE ONE TABLET BY MOUTH EVERY DAY SOLD: 07/09/2019 [facility] 40 mg 07/07/2019 12:00:00 AM EDT tablet 90 TAKE ONE TABLET BY MOUTH EVERY DAY TAKE ONE TABLET BY MOUTH EVERY DAY SOLD: 10/21/2019 [facility] 90 mcg/actuation 06/23/2019 12:00:00 AM EDT HFA aerosol inha ler 25 INHALE 2 PUFFS BY MOUTH EVERY 4 HOURS NEEDED INHALE 2 PUFFS BY MOUTH EVERY 4 HOURS NEEDED SOLD: 08/19/2019 [facility] 875 mg 06/23/2019 12:00:00 AM EDT tablet 20 TAKE ONE TABLET BY MOUTH TWICE A DAY FOR 10 DAYS TAKE ONE TABLET BY MOUTH TWICE A DAY FOR 10 DAYS SOLD: 06/23/2019 [facility] 90 mcg/actuation 06/23/2019 12:00:00 AM EDT HFA aerosol inha ler 25 INHALE 2 PUFFS BY MOUTH EVERY 4 HOURS NEEDED INHALE 2 PUFFS BY MOUTH EVERY 4 HOURS NEEDED SOLD: 06/23/2019 [facility] Amoxicillin 875 MG Oral Tablet Amoxicillin 06/23/2019 12:00:00 AM EDT ORAL completed [facility] ([facility] 5 mg 06/16/2019 12:00:00 AM EST tablet 90 TAKE ONE TABLET BY MOUTH TWICE A DAY TAKE ONE TABLET BY MOUTH TWICE A DAY SOLD: 06/16/2019 [facility] 5 mg 04/21/2019 12:00:00 AM EST tablet 90 TAKE ONE TABLET BY MOUTH TWICE A DAY TAKE ONE TABLET BY MOUTH TWICE A DAY SOLD: 04/22/2019 [facility] Suprep Bowel Prep Kit Suprep Bowel Prep Kit 04/11/2019 12:00:00 AM EST completed [facility] ([facility] 160-4.5 mcg/actuation 04/01/2019 12:00:00 AM EST HFA aerosol inhaler 30 INHALE TWO PUFFS BY MOUTH TWICE A DAY INHALE TWO PUFFS BY MOUTH TWICE A DAY SOLD: 04/03/2019 [facility] 160-4.5 mcg/actuation 04/01/2019 12:00:00 AM EST HFA aerosol inhaler 30 INHALE TWO PUFFS BY MOUTH TWICE A DAY INHALE TWO PUFFS BY MOUTH TWICE A DAY SOLD: 06/15/2019 [facility] Prednisone 20 MG Oral Tablet Prednisone 03/26/2019 12:00:00 AM EST ORAL completed [facility] ([facility] Azithromycin 250 MG Oral Tablet Azithromycin 03/26/2019 12:00:[address] ORAL completed [facility] ([facility] 250 mg 03/26/2019 12:00:00 AM EST tablet 6 TAKE TWO TABLETS BY MOUTH AT ONCE ON THE FIRST DAY THEN TAKE ONE DAILY THEREAFTER TAKE TWO TABLETS BY MOUTH AT ONCE ON THE FIRST DAY THEN TAKE ONE DAILY THEREAFTER SOLD: 03/27/2019 [facility] 20 mg 03/26/2019 12:00:00 AM EST tablet 10 TAKE TWO TABLETS BY MOUTH EVERY DAY FOR 5 DAYS TAKE TWO TABLETS BY MOUTH EVERY DAY FOR 5 DAYS SOLD: [facility] [place] [facility] 18 mcg 02/24/2019 12:00:00 AM EST capsule, w/inhalation d evice 30 INHALE THE CONTENTS OF ONE CAPSULE VIA HANDIHALER BY MOUTH DAILY INHALE THE CONTENTS OF ONE CAPSULE VIA HANDIHALER BY MOUTH DAILY SOLD: 04/03/2019 [facility] 18 mcg 02/24/2019 12:00:00 AM EST capsule, w/inhalation d evice 30 INHALE THE CONTENTS OF ONE CAPSULE VIA HANDIHALER BY MOUTH DAILY INHALE THE CONTENTS OF ONE CAPSULE VIA HANDIHALER BY MOUTH DAILY SOLD: 05/07/2019 [facility] 18 mcg 02/24/2019 12:00:00 AM EST capsule, w/inhalation d evice 30 INHALE THE CONTENTS OF ONE CAPSULE VIA HANDIHALER BY MOUTH DAILY INHALE THE CONTENTS OF ONE CAPSULE VIA HANDIHALER BY MOUTH DAILY SOLD: 06/15/2019 [facility] 24-26 mg 02/17/2019 12:00:00 AM EST tablet 60 TAKE ONE TABLET BY MOUTH TWICE A DAY TAKE ONE TABLET BY MOUTH TWICE A DAY SOLD: 05/16/2019 [facility] 0.4 mg 02/17/2019 12:00:00 AM EST capsule 30 TAKE ONE CAPSULE BY MOUTH AT BEDTIME TAKE ONE CAPSULE BY MOUTH AT BEDTIME SOLD: 08/19/2019 [facility] 24-26 mg 02/17/2019 12:00:00 AM EST tablet 60 TAKE ONE TABLET BY MOUTH TWICE A DAY TAKE ONE TABLET BY MOUTH TWICE A DAY SOLD: 03/20/2019 [facility] 24-26 mg 02/17/2019 12:00:00 AM EST tablet 60 TAKE ONE TABLET BY MOUTH TWICE A DAY TAKE ONE TABLET BY MOUTH TWICE A DAY SOLD: 08/23/2019 [facility] 24-26 mg 02/17/2019 12:00:00 AM EST tablet 60 TAKE ONE TABLET BY MOUTH TWICE A DAY TAKE ONE TABLET BY MOUTH TWICE A DAY SOLD: 06/23/2019 [facility] 24-26 mg 02/17/2019 12:00:00 AM EST tablet 60 TAKE ONE TABLET BY MOUTH TWICE A DAY TAKE ONE TABLET BY MOUTH TWICE A DAY SOLD: 04/22/2019 [facility] 24-26 mg 02/17/2019 12:00:00 AM EST tablet 60 TAKE ONE TABLET BY MOUTH TWICE A DAY TAKE ONE TABLET BY MOUTH TWICE A DAY SOLD: 07/23/2019 [facility] 0.4 mg 02/17/2019 12:00:00 AM EST capsule 30 TAKE ONE CAPSULE BY MOUTH AT BEDTIME TAKE ONE CAPSULE BY MOUTH AT BEDTIME SOLD: 05/16/2019 [facility] 0.4 mg 02/17/2019 12:00:00 AM EST capsule 30 TAKE ONE CAPSULE BY MOUTH AT BEDTIME TAKE ONE CAPSULE BY MOUTH AT BEDTIME SOLD: 03/20/2019 [facility] 0.4 mg 02/17/2019 12:00:00 AM EST capsule 30 TAKE ONE CAPSULE BY MOUTH AT BEDTIME TAKE ONE CAPSULE BY MOUTH AT BEDTIME SOLD: 06/19/2019 [facility] 0.4 mg 02/17/2019 12:00:00 AM EST capsule 30 TAKE ONE CAPSULE BY MOUTH AT BEDTIME TAKE ONE CAPSULE BY MOUTH AT BEDTIME SOLD: 07/20/2019 [facility] 0.4 mg 02/17/2019 12:00:00 AM EST capsule 30 TAKE ONE CAPSULE BY MOUTH AT BEDTIME TAKE ONE CAPSULE BY MOUTH AT BEDTIME SOLD: 04/22/2019 [facility] 25 mg 01/08/2019 12:00:00 AM EDT tablet 30 TAKE ONE-HALF TABLET BY MOUTH EVERY MORNING TAKE ONE-HALF TABLET BY MOUTH EVERY MORNING SOLD: 05/07/2019 [facility] 40 mg 07/24/2018 12:00:00 AM EDT tablet 90 TAKE ONE TABLET BY MOUTH EVERY DAY TAKE ONE TABLET BY MOUTH EVERY DAY SOLD: 04/22/2019 [facility] 2.5 mg /3 mL (0.083 %) 05/13/2018 12:00:00 AM EST solu tion for nebulization 75 USE 1 VIAL EVERY 6 HOURS NEEDED FOR C OUGH USE 1 VIAL EVERY 6 HOURS NEEDED FOR COUGH SOLD: 05/07/2019 [facility] Insurance Providers Payer name Policy type / Coverage type Policy ID Covered republican ID Covered republican's relationship to hwang Policy Hwang Plan Information BCBS EMPIRE KAE DIV [id number] SP [id number] MEDICARE [id number] SP [id number] UNITED HEALTHCARE [id number] SP [id number] Emp/United Healthcare Medigap Part B [id number] Self [id number] [place] Primary [id number] Self [id number] COMMERCIAL GENERIC OPTIMIZE STUDY Feli OPTIMIZE STUDY MEDICARE [id number] Feli [id number] EXCELLUS BCBS [id number] Feli [id number] [employer] [place] Medigap Part B [id number] Self [id number] [place] Medicare Primary [id number] Self [id number] [place] Plan-[employer] Health Medigap Part B [id number] Self [id number] Medicare (Part B) Medicare Primary [id number] Self [id number] [place] Plan-[employer] Medigap Part B [id number] Self [id number] Medicare (Part B) Medicare Primary [id number] Self [id number] BCBS EMPIRE KAE DIV [id number] SP [id number] MEDICARE [id number] SP [id number] A UNITED HEALTHCARE [id number] SP [id number] BCBS EMPIRE KAE DIV [id number] SP [id number] Emp/United [employer] Medigap Part B [id number] Self [id number] [place] Primary [id number] Self [id number] [place] Plan-[employer] Medigap Part B [id number] Self [id number] Medicare (Part B) Medicare Primary [id number] Self [id number] Emp/[employer] Medigap Part B [id number] Self [id number] [place] Primary [id number] Self [id number] Emp/United [employer] Medigap Part B [id number] Self [id number] [place] Primary [id number] Self [id number] EXCELLUS BCBS PI PI MEDICARE PI PI [employer] [place] Medigap Part B [id number] Self [id number] [place] Medicare Primary [id number] Self [id number] [place] Plan-[employer] Medigap Part B [id number] Self [id number] Medicare (Part B) Medicare Primary [id number] Self [id number] [place] Plan-[employer] Medigap Part B [id number] Self [id number] Medicare (Part B) Medicare Primary [id number] Self [id number] UNITED HEALTHCARE [id number] SP [id number] BCBS EMPIRE KAE DIV [id number] SP [id number] [employer] [place] Medigap Part B [id number] Self [id number] [place] Medicare Primary [id number] Self [id number] Emp/[employer] Medigap Part B [id number] Self [id number] [place] Primary [id number] Self [id number] C [id number] Feli [id number] Emp/[employer] Medigap Part B [id number] Self [id number] [place] Medicare Primary [id number] Self [id number] Emp/[employer] Medigap Part B [id number] Self [id number] [place] Medicare Primary [id number] Self [id number] Emp/[employer] Medigap Part B [id number] Self [id number] [place] Primary [id number] Self [id number] UNITED HEALTHCARE O [id number] S [id number] MEDICARE C [id number] S [id number] A Emp/[employer] Medigap Part B [id number] Self [id number] [place] Medicare Primary [id number] Self [id number] [employer] [place] Medigap Part B [id number] Self [id number] Medicare [employer]l [employer] Medicare Primary [id number] Self [id number] Emp/[employer] Medigap Part B [id number] Self [id number] [place] Medicare Primary [id number] Self [id number] Emp/[employer] Medigap Part B [id number] Self [id number] [place] Medicare Primary [id number] Self [id number] Emp/United [employer] Medigap Part B [id number] Self [id number] Medicare [email or web address] Medicare Primary [id number] Self [id number] UNITED HEALTHCARE [id number] SP [id number] [facility] [id number] SP [id number] MEDICARE [id number] SP [id number] A Emp/United Healthcare Medigap Part B Self Medicare [facility] [[email or web address] Medicare Primary Self [employer] [place] Medigap Part B Self Medicare [facility] [[email or web address] Medicare Primary Self EMPIRE ([facility] EMP) O [id number] S [id number] UNITED HEALTHCARE [id number] SP [id number] [facility] [id number] SP [id number] UNITED HEALTHCARE [id number] SP [id number] Surgeries/Procedures Procedure Description Date Indications Data Source(s) Colonoscopy Flexible Proximal To Splenic Flexure W/Biopsy Si ngle/ 04/23/2019 12:00:00 AM EST [facility] ([facility], ) Results ID Date Data Source [id number] 05/14/2020 10:00:00 AM EST [facility] Name Value Range Interpretation Code Description Data Mikayla rce(s) Supporting Document(s) SARS coronavirus 2 RNA Not Detected [facility] [place] This lab was ordered by [facility] and reported by [facility]. ID Date Data Source [id number] 02/10/2020 08:42:00 AM EDT [facility] ([facility] Name Value Range Interpretation Code Description Data Mikayla rce(s) Supporting Document(s) Triglycerides Level 66 mg/dL [facility] ([facility] HDL Cholesterol 80 mg/dL [facility] ([facility] Cholesterol Level 143 mg/dL [facility] ([facility] LDL Cholesterol 50 mg/dL [facility] ([facility] Non-HDL-C 63 mg/dL [facility] ([facility] Cholesterol Risk Ratio 1.787 [facility] ([facility] ID Date Data Source [id number] 02/10/2020 08:42:00 AM EDT [facility] ([facility] Name Value Range Interpretation Code Description Data Mikayla rce(s) Supporting Document(s) White Blood Count 7.3 10 4.0-10.0 [facility] ([facility] Red Blood Count 4.40 10 4.30-6.10 [facility] ([facility] Hemoglobin 14.9 g/dL 13.5-17.5 [facility] ([facility] Hematocrit 45.2 % 42.0-52.0 [facility] ([facility] Mean Corpuscular Hemoglobin 33.9 pg 27.0-33.0 [facility] ([facility] Mean Corpuscular Volume 102.7 fl 80.0-96.0 M [facility] ([facility] Mean Corpuscular HGB Conc 33.0 g/dL 32.0-36.5 [facility] ([facility] Neutrophils % 66.7 % 36.0-66.0 [facility] ([facility] Platelet Count, Automated 186 10 150-450 [facility] ([facility] Red Cell Distribution Width 12.6 % 11.5-14.5 [facility] ([facility] [place] % 8.9 % 0.0-5.0 [facility] Lymph % 20.9 % 24.0-44.0 [facility] Baso % 0.7 % 0.0-1.0 [facility] Immature Granulocyte % 0.3 % 0-3.0 [facility] ([facility] Eos % 2.5 % 0.0-3.0 [facility] Lymph # 1.5 10 1.5-5.0 [facility] Neutrophils # 4.9 10 1.5-8.5 [facility] ([facility] Nucleated Red Blood Cell % 0.0 % 0-0 [facility] ([facility] Eos # 0.2 10 0.0-0.5 [facility] ([facility] [place] # 0.7 10 0.0-0.8 [facility] ([facility] Baso # 0.1 10 0.0-0.2 [facility] ID Date Data Source [id number] 02/10/2020 08:42:00 AM EDT [facility] ([facility] Name Value Range Interpretation Code Description Data Mikayla rce(s) Supporting Document(s) Creatinine For GFR 0.87 mg/dL 0.70-1.30 [facility] ([facility] Blood Urea Nitrogen 18 mg/dL 7-18 [facility] ([facility] Glucose, Fasting 95 mg/dL 70-100 [facility] ([facility] Glomerular Filtration Rate Laboratory test result [facility] ([facility] <content>Units are mL/min/1.73 m2</content>
<content></content>
<content>Chronic Kidney Disease Staging per NK[facility]:</content>
<content></content>
<content>Stage I & II GFR >=60 Normal to Mildly Decreased</content>
<content>Stage III GFR 30-59 Moderately Decreased</content>
<content>Stage IV GFR 15-29 Severely Decreased</content>
<content>Stage V GFR <15 Very Little GFR Left</content>
<content>ESRD GFR <15 on FLOW COORDINATOR</content>
<content></content> Sodium Level 142 meq/L 136-145 [facility] ([facility] Potassium Serum 4.7 meq/L 3.5-5.1 [facility] ([facility] Chloride Level 105 meq/L 98-107 [facility] ([facility] Carbon Dioxide Level 33 meq/L 21-32 [facility] ([facility] Anion Gap 4 meq/L 8-16 [facility] ([facility] Calcium Level 9.3 mg/dL 8.8-10.2 [facility] ([facility] Ast/Sgot 83 U/L 7-37 [facility] ([facility] Alt/SGPT 125 U/L 12-78 [facility] Alkaline Phosphatase 106 U/L 45-117 [facility] ([facility] Bilirubin,Total 0.6 mg/dL 0.2-1.0 [facility] ([facility] Total Protein 7.1 GM/DL 6.4-8.2 [facility] ([facility] Albumin 3.7 GM/DL 3.2-5.2 [facility] ([facility] Albumin/Globulin Ratio 1.1 [facility] ([facility] ID Date Data Source [id number] 04/23/2019 02:07:00 PM EST [facility] ([facility]) Name Value Range Interpretation Code Description Data Mikayla rce(s) Supporting Document(s) Surgical pathology study Laboratory test result [facility] ([facility]) FINAL DIAGNOSIS Transverse colon, polyp, polypectomy: Adenomatous polyp/tubular adenoma . 04/25/2019919 CLINICAL DIAGNOSIS H/O colon polyps 04/24/20191336 GROSS DIAGNOSIS Received in formalin labeled "biopsy polyp @ transverse colon" is a 0.3 x 0.2 x 0.2 cm. portion of mucosa. All in one. [facility] 04/24/20191336 Signed Emily Lin MD 04/25/2019921 Procedure Social History Code Duration Value Status Description Data Source(s ) Smoking 02/24/2020 12:00:00 AM EST Patient is a former smoker completed Patient is a former smoker [facility] ([facility] Smoking 08/21/2019 12:00:00 AM EDT - 04/16/2017 12:00:00 AM EST Patient is a former smoker completed Patient is a former smoker [facility] ([facility]) Vital Signs ID Date Data Source UNK Name Value Range Interpretation Code Description Data Source(s) Body surface area Derived from formula 1.93 m2 1.93 m2 [facility] ([facility]) Body weight 75.298 kg 75.298 kg [facility] ([facility]) [place] body weight 166 [lb_av] 166 [lb_av] [facility] Body mass index (BMI) [Ratio] 23.8 kg/m2 23.8 k g/m2 [facility] ([facility]) Body weight 166.00 [lb_av] 166.00 [lb_av] [facility] Body height 70 [in_i] 70 [in_i] [facility] ([facility]) 5'10" Diastolic blood pressure 70 mm[Hg] 70 mm[Hg] [facility] ([facility], ) Systolic blood pressure 130 mm[Hg] 130 mm[Hg] [facility] ([facility], ) Body mass index (BMI) [Ratio] 22.7 kg/m2 22.7 k g/m2 [facility] ([facility] Wil[place] body weight 166 [lb_av] 166 [lb_av] [facility] ([facility] Oxygen saturation in Arterial blood by Pulse oximetry 93 % 93 % [facility] ([facility] P-47 Body weight 161.38 [lb_av] 161.38 [lb_av] [facility] ([facility] Body height 70.75 [in_i] 70.75 [in_i] [facility] ([facility] 5'10.75" Respiratory rate 18 /min 18 /min [facility] ( [facility] Body temperature 97.2 [degF] 97.2 [degF] [facility] ([facility] Heart rate 54 /min 54 /min [facility] ([facility] Diastolic blood pressure 67 mm[Hg] 67 mm[Hg] [facility] ([facility] recheck Systolic blood pressure 127 mm[Hg] 127 mm[Hg] [facility] ([facility] recheck Diastolic blood pressure 71 mm[Hg] 71 mm[Hg] [facility] ([facility] Systolic blood pressure 151 mm[Hg] 151 mm[Hg] [facility] ([facility] Body mass index (BMI) [Ratio] 23.7 kg/m2 23.7 k g/m2 [facility] ([facility] Wil[place] body weight 166 [lb_av] 166 [lb_av] [facility] ([facility] Oxygen saturation in Arterial blood by Pulse oximetry 94 % 94 % [facility] ([facility] Body weight 169.00 [lb_av] 169.00 [lb_av] [facility] ([facility] Body height 70.75 [in_i] 70.75 [in_i] [facility] ([facility] 5'10.75" Respiratory rate 18 /min 18 /min [facility] ( [facility] Body temperature 97.0 [degF] 97.0 [degF] [facility] Heart rate 58 /min 58 /min [facility] ([facility] Diastolic blood pressure 69 mm[Hg] 69 mm[Hg] [facility] ([facility] Systolic blood pressure 133 mm[Hg] 133 mm[Hg] [facility] ([facility] Body surface area Derived from formula 1.94 m2 1.94 m2 [facility] ([facility]) Body weight 76.715 kg 76.715 kg [facility] ([facility]) Wil[place] body weight 166 [lb_av] 166 [lb_av] [facility] ([facility]) Body mass index (BMI) [Ratio] 24.3 kg/m2 24.3 k g/m2 [facility] ([facility]) Body weight 169.12 [lb_av] 169.12 [lb_av] [facility] ([facility]) Body height 70 [in_i] 70 [in_i] [facility] ([facility]) 5'10" Body temperature 97.6 [degF] 97.6 [degF] [facility] ([facility]) Oxygen saturation in Arterial blood by Pulse oximetry 97 % 97 % [facility] ([facility], ) Heart rate 59 /min 59 /min [facility] ([facility], ) Diastolic blood pressure 74 mm[Hg] 74 mm[Hg] [facility] ([facility], ) Systolic blood pressure 122 mm[Hg] 122 mm[Hg] [facility] ([facility], ) Respiratory rate 18 /min 18 /min [facility] ( [facility] Body temperature 98.1 [degF] 98.1 [degF] [facility] Heart rate 62 /min 62 /min [facility] ([facility] Diastolic blood pressure 72 mm[Hg] 72 mm[Hg] [facility] Systolic blood pressure 127 mm[Hg] 127 mm[Hg] [facility] ([facility] Body height 70.75 [in_i] 70.75 [in_i] [facility] ([facility] 5'10.75" Respiratory rate 15 /min 15 /min [facility] ( [facility] Body temperature 98.0 [degF] 98.0 [degF] [facility] ([facility] Diastolic blood pressure 72 mm[Hg] 72 mm[Hg] [facility] ([facility] checked by home machine Systolic blood pressure 128 mm[Hg] 128 mm[Hg] [facility] ([facility] checked by home machine Body mass index (BMI) [Ratio] 23.5 kg/m2 23.5 k g/m2 [facility] ([facility] Oxygen saturation in Arterial blood by Pulse oximetry 97 % 97 % [facility] ([facility] Body weight 167.12 [lb_av] 167.12 [lb_av] [facility] ([facility] Body height 70.75 [in_i] 70.75 [in_i] [facility] 5'10.75" Respiratory rate 16 /min 16 /min [facility] ( [facility] Body temperature 96.6 [degF] 96.6 [degF] [facility] Heart rate 59 /min 59 /min [facility] ([facility] Diastolic blood pressure 75 mm[Hg] 75 mm[Hg] [facility] Systolic blood pressure 138 mm[Hg] 138 mm[Hg] [facility] ([facility] Body weight 73.540 kg 73.540 kg [facility] ([facility]) Body mass index (BMI) [Ratio] 23.3 kg/m2 23.3 k g/m2 [facility] ([facility]) Body weight 162.12 [lb_av] 162.12 [lb_av] [facility] Body height 70 [in_i] 70 [in_i] [facility] ([facility]) 5'10" Diastolic blood pressure 68 mm[Hg] 68 mm[Hg] [facility] ([facility]) Systolic blood pressure 118 mm[Hg] 118 mm[Hg] [facility] ([facility]) Body mass index (BMI) [Ratio] 22.6 kg/m2 22.6 k g/m2 [facility] Oxygen saturation in Arterial blood by Pulse oximetry 99 % 99 % [facility] ([facility] Body weight 161.12 [lb_av] 161.12 [lb_av] [facility] ([facility] Body height 70.75 [in_i] 70.75 [in_i] [facility] 5'10.75" Respiratory rate 18 /min 18 /min [facility] ( [facility] Body temperature 96.2 [degF] 96.2 [degF] [facility] Heart rate 58 /min 58 /min [facility] Diastolic blood pressure 73 mm[Hg] 73 mm[Hg] [facility] Systolic blood pressure 122 mm[Hg] 122 mm[Hg] [facility] ([facility]
--- OUTSIDE RECORDS SUMMARY | 2020-05-19 06:58 | CCD | Continuity of Care Document ---
Author Author Bakari GRAVES M.D. Organization Unknown Address [address] [place] [address] Phone [phone] Problems Active Problems Provider Date Essential hypertension Cindy Graves M.D. Onset: 06/17 COPD Cindy Graves M.D. Onset: 05/05/19 15 Congestive heart failure Cindy Graves M.D. Onset: Social History Type Date Description [...] via handihaler daily 30caps J8 4.10 Cindy Graves M.D. 05/13/2018 Entresto 24-26mg Tablets take one tablet by mouth twice a day 60tabs Cindy Graves M.D. Spironolactone 25mg Tablets take one-half tablet by mouth every morning 45tabs Cindy Graves M.D. 03/05/2018 Proair HFA 108(90Base) mcg/Act Aer osol 2 puffs every 4 hours as needed 25.5gm J44.9 Cindy Graves M.D. 08/12/2014 Tamsulosin HCL 0.4mg Capsules take one capsule by mouth at bedtime 30caps Cindy Graves M.D. 07/06/2011 Albuterol Sulfate (2 .5mg/3ML) 0.083% Nebulizer Use 1 Vial Every 6 Hours as Needed For Cough 75units J44 .9 Cindy Graves M.D. 05/15/2011 Multivitamin Men Tablets 1 by mouth every day Unknown Symbicort 160-4.5mcg/Act Aerosol inhale two puffs by mouth twice a day 30.6units J84.10 Cindy Graves M.D. Lipitor 40mg Tablets 1 by mouth every day 90tabs Cindy Graves M.D. Eliquis 5mg Tablets Take One Tablet By Mouth Twice A Day 90tabs Cindy Graves M.D. Nitroglycerin 0.4mg Tablets Sub place 1 tablet under the tongue every five minutes up to maximum of 3 tablets as needed for chest pain. if no relief call 911 Devendra Cameron MD Aspirin 81 Low Dose 81mg Chewtabs Unknown Immunizations CPT Code Status Date Vaccine Lot # [id number] Given 02/24/2020 Influenza Virus Vaccine, Quadrivalent,age 3 and up,multidose vial [id number] Given 02/21/2019 Influenza Virus Vaccine, Quadrivalent,age 3 and up,multidose vial [id number] 56077 Given 03/20/2018 Influenza Virus, quadravalent, preservative free,age 3 and up [id number] Given 08/28/2016 Prevnar 13 For Adults [id number] Given 02/05/2013 Influenza Vaccine (Fluzone)( medicare) [id number] Given 02/05/2013 Pneumococcal Vaccine [id number] Given 02/05/2013 Influenza Vaccination [id number] 73322 Given 01/31/2007 Influenza Vaccination [id number] Refused 01/04/2015 Influenza Vaccination Vital Signs Date [...] Flow Rate 497 Estimated Peak Flow Rate [place] Body Weight 166 lb BMI (Body Mass Index) 22.7 kg/m2 08/22/2019 7:18am BP Systolic 133 mmHg BP Diastolic 69 mmHg Heart Rate 58 /min Body Temperature 97.0 F Respiratory Rate 18 /min Height 70.75 inches 5'10.75" Weight 169.00 lb O2 % BldC Oximetry 94 % Peak Expiratory Flow Rate 494 Estimated Peak Flow Rate [place] Body Weight 166 lb BMI (Body Mass Index) 23.7 kg/m2 Results Test Acquired Date Facility Test Result H/L Range Note CMP - Complete Panel (14 Test) 02/10/2020 [address] [facility] [place] [id number] [phone] Glucose, Fasting 95 mg/dL Normal 70-100 Blood [...] CBC With Auto Diff 02/10/2020 [place] [address] [phone] White Blood Count 7.3 10 Normal 4.0-10.0 [...] 36.0-66.0 Lymph % 20.9 % Low 24.0-44.0 [place] % 8.9 % High 0.0-5.0 Eos % 2.5 % Normal 0.0-3.0 Baso % 0.7 % Normal 0.0-1.0 Immature Granulocyte % 0.3 % Normal 0-3.0 Nucleated Red Blood Cell % 0.0 % Normal 0-0 Neutrophils # 4.9 10 Normal 1.5-8.5 Lymph # 1.5 10 Normal 1.5-5.0 [place] # 0.7 10 Normal 0.0-0.8 Eos # 0.2 10 Normal 0.0-0.5 Baso # 0.1 10 Normal 0.0-0.2 Lipid Panel 02/10/2020 [place] [address] [phone] Triglycerides Level 66 mg/dL Normal <150 Cholesterol [...] Little GFR Left ESRD GFR <15 on [employer] Procedures Description No Information Available Medical Devices Description No Information Available Encounters Type Date Location Provider Dx Diagnosis Office Visit 02/24/2020 7:15a Main Office Cindy Graves M.D. J 44.9 Chronic obstructive pulmonary disease, unspecified J84.10 Pulmonary fibrosis, unspecif ied I50.32 Chronic diastolic (congestiv e) heart failure I11.0 Hypertensive heart disease w ith heart failure Z23 Encounter for immunization Assessments Date Code Description Provider 02/24/2020 J44.9 Chronic obstructive pulmonary di sease, unspecified Cindy Graves M.D. 02/24/2020 J84.10 Pulmonary fibrosis, unspecified Cindy Graves M.D. 02/24/2020 I50.32 Chronic diastolic (congestive) h eart failure Cindy Graves M.D. 02/24/2020 I11.0 Hypertensive heart disease with heart failure Cindy Graves M.D. 02/24/2020 Z23 Encounter for immunization Willi Cindy waggoner M.D. 02/10/2020 I10 Essential (primary) hypertension Cindy Gravse M.D. 02/10/2020 J44.9 Chronic obstructive pulmonary di sease, unspecified Cindy Graves M.D. 02/10/2020 J84.10 Pulmonary fibrosis, unspecified Cindy Graves M.D. 02/10/2020 I50.32 Chronic diastolic (congestive) h eart failure Cindy Graves M.D. 01/06/2020 I10 Essential (primary) hypertension Cindy Graves M.D. 01/06/2020 J44.9 Chronic obstructive pulmonary di sease, unspecified Cindy Graves M.D. 01/06/2020 J84.10 Pulmonary fibrosis, unspecified Cindy Graves M.D. 01/06/2020 I50.32 Chronic diastolic (congestive) h eart failure Cindy Graves M.D. 12/15/2019 I10 Essential (primary) hypertension Cindy Graves M.D. 12/15/2019 J44.9 Chronic obstructive pulmonary di sease, unspecified Cindy Graves M.D. 12/15/2019 J84.10 Pulmonary fibrosis, unspecified Cindy Graves M.D. 12/15/2019 I50.32 Chronic diastolic (congestive) h eart failure Cindy Graves M.D. 11/04/2019 I10 Essential (primary) hypertension Cindy Graves M.D. 11/04/2019 J44.9 Chronic obstructive pulmonary di sease, unspecified Cindy Graves M.D. 11/04/2019 J84.10 Pulmonary fibrosis, unspecified Cindy Graves M.D. 11/04/2019 I50.32 Chronic diastolic (congestive) h eart failure Cindy Graves M.D. 10/13/2019 I10 Essential (primary) hypertension Cindy Graves M.D. 10/13/2019 J44.9 Chronic obstructive pulmonary di sease, enocified Cindy Graves M.D. 10/13/2019 J84.10 Pulmonary fibrosis, unspecified Cindy Graves M.D. 10/13/2019 I50.32 Chronic diastolic (congestive) h eart failure Cindy Graves M.D. 09/02/2019 I10 Essential (primary) hypertension Cindy Graves M.D. 09/02/2019 J44.9 Chronic obstructive pulmonary di sease, unspecified Cindy Graves M.D. 09/02/2019 J84.10 Pulmonary fibrosis, unspecified Cindy Graves M.D. 09/02/2019 I50.32 Chronic diastolic (congestive) h eart failure Cindy Graves M.D. Plan of Treatment Future Appointment(s):* 08/24/2020 7:10 am - Cindy Graves M.D. at Main Office Functional Status Functional Condition Comment Date Status Partial dentures Active Independent with all ADL's Activ e Independent with all IADL's Acti ve Bifocal glasses Active Mental Status Mental Condition Comment Date Status None Active Referrals Description No Information Available
[2020-05-19] MEDS ORDERED: LIDOCAINE 2% 100MG/5ML SDV (FOR ANES.) As Ordered ONE (07:16)
[2020-05-19] MEDS ORDERED: propofoL 200 MG/20 ML VIAL As Ordered ONE (07:16)
[2020-05-19] MEDS ORDERED: PHENYLephrine 500MCG 5ML (100MCG/ML) SYRINGE As Ordered ONE (08:14)
--- NOTE | 2020-05-19 08:37 | ROOR ---
Patient Name: Bakari Arguello Procedure Date: 05/19/2020 8:04 AM Date of : 1940 Age: 80 Room: [facility] Gender: Male Note Status: Finalized Procedure: Colonoscopy Indications: High risk colon cancer surveillance: Personal history of colonic polyps Providers: DO Sapna Alas MD: Cindy Torres MD Requesting Provider: Medicines: Propofol per Anesthesia Complications: No immediate complications. Procedure: Pre-Anesthesia Assessment: - Prior to the procedure, a History and Physical was performed, and patient medications and allergies were reviewed. The patient is competent. The risks and benefits of the procedure and the sedation options and risks were discussed with the patient. All questions were answered and informed consent was obtained. Patient identification and proposed procedure were verified by the physician, the nurse, the anesthesiologist and the motorsports technician in the endoscopy suite. Mental Status Examination: alert and oriented. Airway Examination: normal oropharyngeal airway and neck mobility. Respiratory Examination: clear to auscultation. CV Examination: normal. Prophylactic Antibiotics: The patient does not require prophylactic antibiotics. Prior Anticoagulants: The patient has taken no previous anticoagulant or antiplatelet agents. ASA Grade Assessment: II - A patient with mild systemic disease. After reviewing the risks and benefits, the patient was deemed in satisfactory condition to undergo the procedure. The anesthesia plan was to use monitored anesthesia care (MAC). Immediately prior to administration of medications, the patient was re-assessed for adequacy to receive sedatives. The heart rate, respiratory rate, oxygen saturations, blood pressure, adequacy of pulmonary ventilation, and response to care were monitored throughout the procedure. The physical status of the patient was re-assessed after the procedure. The Colonoscope was introduced through the anus and advanced to the cecum, identified by appendiceal orifice and ileocecal valve. The colonoscopy was performed without difficulty. The patient tolerated the procedure well. Findings: Multiple small and large-mouthed diverticula were found in the entire colon. Five hyperplastic polyps were found in the rectum and cecum. The polyps were less than 5 mm in size. These polyps were removed with a jumbo cold forceps. Resection and retrieval were complete. Estimated blood loss was minimal. Non-bleeding internal hemorrhoids were found during retroflexion. The hemorrhoids were small and Grade I (internal hemorrhoids that do not prolapse). Impression: - Diverticulosis in the entire examined colon. - Five less than 5 mm polyps in the rectum and in the cecum, removed with a jumbo cold forceps. Resected and retrieved. - Non-bleeding internal hemorrhoids. Recommendation: - Patient has a contact number available for emergencies. The signs and symptoms of potential delayed complications were discussed with the patient. Return to normal activities tomorrow. Written discharge instructions were provided to the patient. - Repeat colonoscopy in 3 - 5 years for surveillance based on pathology results. - Return to my office PRN. - Await pathology results. - Telephone my office for pathology results in 1 week. Procedure Code(s): --- Professional --- 12063, Colonoscopy, flexible; with biopsy, single or multiple Diagnosis Code(s): --- Professional --- Z86.010, Personal history of colonic polyps K64.0, First degree hemorrhoids K62.1, Rectal polyp K63.5, Polyp of colon K57.30, Diverticulosis of large intestine without perforation or abscess without bleeding CPT copyright 2019 [employer]. All rights reserved. The codes documented in this report are preliminary and upon correctional lieutenant review may be revised to meet current compliance requirements. Jamshid Dunn DO 05/19/2020 8:37:04 AM Electronically signed by Jamshid Dunn DO Number of Addenda: 0 Note Initiated On: 05/19/2020 8:04 AM Estimated Blood Loss: Estimated blood loss was minimal.
[2020-05-19 09:01] VITALS: BP 106/53
== END 2020-05-19 09:03 | disposition home or self-care (01) ==
LOC: M OPP 06:53
PROVIDERS: ATTEND Surgery
DX: Z12.11 Encounter for screening for malignant neoplasm of colon (principal); Z86.010 Personal history of colon polyps; K62.1 Rectal polyp; D12.0 Benign neoplasm of cecum; K64.0 First degree hemorrhoids; K57.30 Diverticulosis of large intestine without perforation or abscess without bleeding; I25.10 Atherosclerotic heart disease of native coronary artery without angina pectoris; I10 Essential (primary) hypertension; E78.5 Hyperlipidemia, unspecified; J44.9 Chronic obstructive pulmonary disease, unspecified; Z95.5 Presence of coronary angioplasty implant and graft; Z79.01 Long term (current) use of anticoagulants; Z79.82 Long term (current) use of aspirin; Z79.899 Other long term (current) drug therapy
CPT/HCPCS: 45380; 88305; J2370

== ENCOUNTER 2020-07-21 19:06 | Inpatient (IN) | payer MEDICARE, BC, OTHER ==
[~2020-07-21] VITALS: Ht 172.7 cm; Wt 72.0 kg
[~2020-07-21 19:06] MED LIST changes: +ASPI-569 PO; -ASPI81TAEC PO; -NS 1,000 ML IV ONE
[2020-07-21] MEDS ORDERED: INCR1INH INH (19:23)
[2020-07-21 22:36] LABS: BASO % 0.6 % (0.0-1.0); EOS # 0.2 10^3/uL (0.0-0.5); HEMATOCRIT 41.6 % (42.0-52.0); LYMPH # 1.6 10^3/uL (1.5-5.0); LYMPH % 23.6 % (24.0-44.0); MEAN CORPUSCULAR HEMOGLOBIN 34.2 pg (27.0-33.0); MEAN CORPUSCULAR HGB CONC 33.7 g/dl (32.0-36.5); MEAN CORPUSCULAR VOLUME 101.7 fl (80.0-96.0); MONO # 0.7 10^3/uL (0.0-0.8); MONO % 10.4 % (2.0-8.0); NEUTROPHILS # 4.1 10^3/uL (1.5-8.5); NEUTROPHILS % 61.9 % (36.0-66.0); PLATELET COUNT, AUTOMATED 161 10^3/uL (150-450); RED BLOOD COUNT 4.09 10^6/uL (4.30-6.10); WHITE BLOOD COUNT 6.6 10^3/uL (4.0-10.0)
[2020-07-21] MEDS ORDERED: ATOR40TA75 PO (22:38)
[2020-07-21] MEDS ORDERED: ENTR1TAB PO (22:38)
[2020-07-21] MEDS ORDERED: MULTTAB61 PO (22:38)
[2020-07-21] MEDS ORDERED: SPIR-10 PO (22:38)
[2020-07-21] MEDS ORDERED: ASPI81TA26 PO (22:38)
[2020-07-21 22:46] LABS: INR 1.08; PROTHROMBIN TIME 14.2 SECONDS (12.5-14.3)
[2020-07-21] MEDS: GASTROGRAFIN SOLUTION 30ML PO SCH ×2 (22:46→23:22)
[2020-07-21 22:47] LABS: PARTIAL THROMBOPLASTIN TIME 32.2 SECONDS (24.2-38.5)
[2020-07-21 23:30] LABS: ALBUMIN 3.4 GM/DL (3.2-5.2); ALT/SGPT 59 U/L (12-78); BILIRUBIN,DIRECT < 0.1 MG/DL (0.0-0.2); BILIRUBIN,TOTAL 0.4 MG/DL (0.2-1.0); BLOOD UREA NITROGEN 24 MG/DL (7-18); CALCIUM LEVEL 9.1 MG/DL (8.8-10.2); CARBON DIOXIDE LEVEL 32 MEQ/L (21-32); CHLORIDE LEVEL 108 MEQ/L (98-107); CK-MB VALUE MASS < 1.0 NG/ML (<3.6); CPK CREATINE PHOSPHOKINASE 138 U/L (39-308); CREATININE FOR GFR 0.93 MG/DL (0.70-1.30); GLOMERULAR FILTRATION RATE > 60.0 (>42); GLUCOSE, FASTING 97 MG/DL (70-100); LIPASE 97 U/L (73-393); MB/CK RELATIVE INDEX 0.72 (< OR =4); POTASSIUM SERUM 5.4 MEQ/L (3.5-5.1); SODIUM LEVEL 141 MEQ/L (136-145); TOTAL PROTEIN 6.8 GM/DL (6.4-8.2); TROPONIN I < 0.02 NG/ML (< 0.10)
[2020-07-22] MEDS ORDERED: ISOVUE-370 76% 100ML VIAL As Ordered ONE (00:10)
--- NOTE | 2020-07-22 01:03 | REPVR ---
PROCEDURE INFORMATION: Exam: CT Abdomen And Pelvis With Contrast Exam date and time: 07/21/2020 9:45 PM Age: 80 years old Clinical indication: Other: Bloody stool; Additional info: Gi bleeding TECHNIQUE: Imaging protocol: Computed tomography of the abdomen and pelvis with contrast. Radiation optimization: All CT scans at this facility use at least one of these dose optimization techniques: automated exposure control; mA and/or kV adjustment per patient size (includes targeted exams where dose is matched to clinical indication); or iterative reconstruction. Contrast material: ISO; Contrast volume: 100 ml; Contrast route: INTRAVENOUS (IV); Other contrast: Oral, ggraphin, 600; COMPARISON: PT PET/CT Skull/mid thigh 07/17/2018 9:03 AM FINDINGS: Lungs: 4 mm 7 mm noncalcified nodule in the right lower lobe is unchanged. Liver: Normal. No mass. Gallbladder and bile ducts: Several small calculi in the gallbladder. No gallbladder wall thickening or pericholecystic fluid. No biliary duct dilation. Pancreas: Normal. No ductal dilation. Spleen: Normal. No splenomegaly. Adrenal glands: Normal. No mass. Kidneys and ureters: Normal. No hydronephrosis. Stomach and bowel: There is colonic diverticulosis without evidence of diverticulitis. The small bowel is unremarkable. Appendix: No evidence of appendicitis. Intraperitoneal space: Unremarkable. No free air. No significant fluid collection. Vasculature: Unremarkable. No abdominal aortic aneurysm. Lymph nodes: Unremarkable. No enlarged lymph nodes. Urinary bladder: Unremarkable as visualized. Reproductive: Unremarkable as visualized. Bones/joints: There are advanced degenerative changes in the spine and pelvis. Soft tissues: Unremarkable. IMPRESSION: 1. Colonic diverticulosis without evidence of diverticulitis. 2. No acute findings. 3. Cholelithiasis. Electronically signed by: Rivas Oconnor On 07/22/2020 01:03:42 AM
--- NOTE | 2020-07-22 01:38 | ECGEPIP ---
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
[2020-07-22] MEDS ORDERED: MAALOX 30 ML SUSP *UDC PO PRN (02:35)
[2020-07-22] MEDS ORDERED: ACETAMINOPHEN TAB 650MG DOSE (2X325MG) PO PRN (02:35)
[2020-07-22] MEDS ORDERED: MOM 30ML SUSPENSION UDC PO PRN (02:35)
--- NOTE | 2020-07-22 02:36 | HPEPDOC ---
[facility] Medical History & Physical Date of Admission Jul 22, 2020 Date of Service: Jul 22, 2020 History and Physical CHIEF COMPLAINT: Black stools HISTORY OF PRESENT ILLNESS: 80-year-old male history of A. fib s/p ablation but remains on eliquis, CAD with stenting, hypertension, COPD who presents for hospital because of a one-day history of black stools. Patient tells me that on the first night yesterday he noticed maroon-colored blood in his stools afterwards it turned black and all subsequent stools have been black. He denies blood elsewhere denies blood in urine or hemoptysis. Denies a history of black stools. He states he doesn't feel dizzy or short of breath denies chest pain. Denies other associated symptoms. States he feels normal otherwise. He tells me he had a colonoscopy 2 months ago. Chart review reveals he had a colonoscopy with Dr. Dunn with resection of 5 mm polyp he was also found to have internal hemorrhoids. Patient doesn't recall if he had a recent history of EGD. Regarding his atrial fibrillation he underwent ablation in 2018 and tells me it was successful. Despite this he remains on eliquis. He tells me he hasn't followed up with his apigee developer in many years. He tells me he takes all his medications as prescribed. Patient will be admitted to the medical service for observation to trend his hemoglobin and possibly for EGD. PAST MEDICAL/SURGICAL HISTORY: Atrial fibrillation status post ablation 2018 Coronary artery disease post stenting 2018 Hypertension COPD not oxygen dependent BPH Appendectomy SOCIAL HISTORY: Denies alcohol use Endorses smoking half a pack per day has been smoking for about 50 years Denies illicit drug use FAMILY HISTORY: Reviewed and none contributory to this admission ALLERGIES: Please see below. REVIEW OF SYSTEMS: 10 point review of systems complete all negative otherwise stated in HPI HOME MEDICATIONS: Please see below. PHYSICAL EXAMINATION: Constitutional: Awake and alert, in no apparent distress ENT: Sclera are clear. Mucosa is moist. Respiratory: Lungs mild wheezing bilaterally. No respiratory distress. No use of accessory muscles. Cardiovascular: Regular rate and rhythm Gastrointestinal: Abdomen is soft, non distended, non tender, BS present. Musculoskeletal: Trace bilateral lower extremity edema Neurologic: No focal neurological deficit. Mental Status: A&O x3, normal affect Skin: Warm, dry LABORATORY DATA: See below. IMAGING: See chart MICROBIOLOGY: Please see below. ASSESSMENT/PLAN 80-year-old male history of A. fib s/p ablation but remains on eliquis, CAD with stenting, hypertension, COPD presenting with melena admitted to the medical service for observation to trend his hemoglobin and possibly for EGD. # Suspected upper GI bleed: Trend HH q6h, Protonix IV twice a day. Sucralfate TID. Hemoglobin 14 on admission. Consider consulting GI in the morning for EGD in vs outpt. # CAD with stenting: Hold aspirin and continue statin. # Atrial fibrillation: Status post ablation 2017. Patient remains on eliquis. Hold eliquis due to the GI bleed. Patient is sinus rhythm and should follow-up with his primary care physician to determine if resumption of eliquis is still needed given that his ablation was successful. # COPD: He does have some mild wheezing on exam. Continue home inhalers. Duonebs as needed. # Hypertension: Soft BP. Hold home sacubitrol/valsartan for now. Monitor and titrate # BPH: Continue tamsulosin # DVT prophylaxis: SCDs only A Yousef Hospitalist Vital Signs Vital Signs Date Time Temp Pulse Resp B/P (MAP) Pulse Ox O2 Delivery O2 Flow Rate FiO2 07/21/20 22:48 07/21/20 19:07 97.8 64 18 95 Room Air Laboratory Data Labs 24H Laboratory Tests 2 07/21/20 22:10: Immature Granulocyte % (Auto) 0.5, Neutrophils (%) (Auto) 61.9, Lymphocytes (%) (Auto) 23.6L, Monocytes (%) (Auto) 10.4H, Eosinophils (%) (Auto) 3.0, Basophils (%) (Auto) 0.6, Neutrophils # (Auto) 4.1, Lymphocytes # (Auto) 1.6, Monocytes # (Auto) 0.7, Eosinophils # (Auto) 0.2, Basophils # (Auto) 0.0, Nucleated Red Blood Cells % (auto) 0.0, Prothrombin Time 14.2H, Prothromb Time International Ratio 1.08, Activated Partial Thromboplast Time 32.2, Anion Gap 1L, Glomerular Filtration Rate > 60.0, Calcium Level 9.1, Total Bilirubin 0.4, Direct Bilirubin < 0.1, Aspartate Amino Transf (AST/SGOT) 65H, Alanine Aminotransferase (ALT/SGPT) 59, Alkaline Phosphatase 75, Total Creatine Kinase 138, Creatine Ki nase MB < 1.0, Creatine Kinase MB Relative Index 0.72, Troponin I < 0.02, Total Protein 6.8, Albumin 3.4, Albumin/Globulin Ratio 1.0, Lipase 97 CBC/BMP Laboratory Tests 07/21/20 22:10 Microbiology Microbiology 07/21/20 Respiratory Virus Panel (PCR) (JENNIFER) - Final, Complete Home Medications Scheduled Apixaban (Eliquis) 5 Mg Tablet, 5 MG PO BID 2ND DOSE AT DINNER Aspirin (Aspirin EC) 81 Mg Tablet.dr, 81 MG PO DAILY Atorvastatin Calcium (Atorvastatin Calcium) 40 Mg Tablet, 40 MG PO QPM AFTER SUPPER Budesonide/Formoterol (Symbicort 160-4.5 Mcg Inhaler) 60 Puff/Inhaler Aers, 1 PUFF INH BID Multivitamin (Multivitamins) 1 Each Tablet, 1 TAB PO DAILY Sacubitril/Valsartan (Entresto 24 mg-26 mg Tablet) 1 Each Tablet, 1 TAB PO BID Spironolactone (Spironolactone) 25 Mg Tablet, 12.5 MG PO DAILY Tamsulosin Hcl (Tamsulosin HCl) 0.4 Mg Capsule, 1 TAB PO QPM AFTER SUPPER Umeclidinium [place] (Incruse Ellipta) 62.5 Mcg Blst.w.dev, 1 PUFF INH DAILY Scheduled PRN Albuterol Sulf (Albuterol Sulfate) 2.5 Mg/3 Ml Nebu, 2.5 MG INH QID PRN for SHORTNESS OF BREATH Albuterol Sulfate (Proair Hfa) 108 Mcg/Act Aer, 2 PUFF INH Q4H PRN for SHORTNESS OF BREATH Nitroglycerin (Nitrostat) 0.4 Mg Tab.subl, 0.4 MG SL PRN PRN for CHEST PAIN Allergies Coded Allergies: No Known Allergies (Unverified , 05/11/20) A-FIB/CHADSVASC A-FIB History Current/History of A-Fib/PAF?: Yes Current PO Anticoag Therapy: Yes ANASTACIO MORRISSEY MD Jul 22, 2020 02:36
[2020-07-22] MEDS ORDERED: ALBUTEROL SULFATE 2.5 MG/0.5 ML INH NEB SOLN INH PRN (02:40)
[2020-07-22] MEDS ORDERED: IPRATROPIUM 0.5MG/ALBUTEROL 2.5MG INH SOL UD 3ML (DUONEB) NEB PRN (02:45)
[2020-07-22 04:00] VITALS: BP 98/65
[2020-07-22 04:04] LABS: HEMATOCRIT 42.1 % (42.0-52.0); HEMOGLOBIN 14.1 g/dl (13.5-17.5)
[2020-07-22 06:00] VITALS: BP 118/59
[2020-07-22] MEDS ORDERED: SUCRALFATE 1 GM TAB PO SCH (06:00)
[2020-07-22] MEDS: SYMBICORT 160/4.5MCG INHALER 6GM INH SCH ×2 (07:57→19:07)
[2020-07-22 08:56] LABS: BASO # 0.1 10^3/uL (0.0-0.2); BASO % 0.8 % (0.0-1.0); EOS # 0.2 10^3/uL (0.0-0.5); EOS % 3.7 % (0.0-3.0); HEMATOCRIT 39.6 % (42.0-52.0); HEMOGLOBIN 13.3 g/dl (13.5-17.5); LYMPH # 1.5 10^3/uL (1.5-5.0); LYMPH % 25.5 % (24.0-44.0); MEAN CORPUSCULAR HEMOGLOBIN 33.9 pg (27.0-33.0); MEAN CORPUSCULAR HGB CONC 33.6 g/dl (32.0-36.5); MONO # 0.6 10^3/uL (0.0-0.8); MONO % 10.8 % (2.0-8.0); NEUTROPHILS # 3.5 10^3/uL (1.5-8.5); NEUTROPHILS % 58.9 % (36.0-66.0); PLATELET COUNT, AUTOMATED 164 10^3/uL (150-450); RED BLOOD COUNT 3.92 10^6/uL (4.30-6.10); WHITE BLOOD COUNT 5.9 10^3/uL (4.0-10.0)
[2020-07-22] MEDS ORDERED: ENTRESTO 24-26MG TABLET (SACUBITRIL/VALSARTAN) PO SCH (09:00)
[2020-07-22 09:38] LABS: ALBUMIN 3.2 GM/DL (3.2-5.2); ALT/SGPT 54 U/L (12-78); BILIRUBIN,TOTAL 0.6 MG/DL (0.2-1.0); BLOOD UREA NITROGEN 21 MG/DL (7-18); CALCIUM LEVEL 8.8 MG/DL (8.8-10.2); CARBON DIOXIDE LEVEL 30 MEQ/L (21-32); CHLORIDE LEVEL 107 MEQ/L (98-107); CREATININE FOR GFR 0.75 MG/DL (0.70-1.30); GLOMERULAR FILTRATION RATE > 60.0 (>42); GLUCOSE, FASTING 90 MG/DL (70-100); MAGNESIUM LEVEL 2.2 MG/DL (1.8-2.4); POTASSIUM SERUM 4.3 MEQ/L (3.5-5.1); SODIUM LEVEL 141 MEQ/L (136-145); TOTAL PROTEIN 6.2 GM/DL (6.4-8.2)
[2020-07-22] MEDS: DOCUSATE SODIUM 100MG CAPSULE PO SCH ×2 (11:15→20:39)
[2020-07-22] MEDS: SPIRONOLACTONE 12.5MG PER 1/2 TABLET PO SCH (11:15)
[2020-07-22] MEDS: PANTOPRAZOLE 40MG VIAL (C9113 PER 1) IV SCH ×2 (11:15→20:39)
--- NOTE | 2020-07-22 12:29 | IPNPDOC ---
Subjective Date Seen The patient was seen on 07/22/20. Subjective Chief Complaint/HPI Mr. Arguello is a 80 year old male with a.fib s/p ablation on apixaban who presents with melena. Patient was seen this morning. Denies having abdominal pain or nausea during the week. Yesterday he started having dark black stools. Last BM yesterday morning. He said he had about 4 episodes of melena. Denies taking iron. Today, he denies chest pain, dyspnea, lightheadedness/dizziness, or dysuria. I reached out to GI, Dr. Oquendo. Plan for EGD tomorrow morning Objective Physical Examination General Exam: Positive: Alert, Cooperative Eye Exam: Negative: Sclera icteric Neck Exam: Positive: Supple Chest Exam: Positive: Diminished Heart Exam: Positive: Rate Normal, Regular Rhythm Abdomen Exam: Positive: Normal bowel sounds, Soft; Negative: Tenderness Extremity Exam: Negative: Edema Neuro Exam: Positive: Normal Speech Psych Exam: Positive: Mental status NL, Mood NL Assessment /Plan Assessment Mr. Arguello is a 80 year old male on apixaban for atrial fibrillation who is here with melena. GI consulted and recommendations appreciated. Plan for colonoscopy tomorrow. Today, he will be on clear liquid diet and receive IV Protonix BID. Apixaban on hold Plan/VTE VTE Prophylaxis Ordered?: Yes Plan 1. Suspected upper GI bleed -Patient reports dark/black soft stools -GI consulted, recommendations appreciated -IV Protonix BID -Clear liquid diet today, NPO after midnight for possible EgD -Hold apixaban -Trend CBC 2. CAD s/p stent -Continue statin -Hold aspirin and Entresto 3. COPD -Mild wheezing on exam -Continue inhalers and duonebs as needed 4. BPH -Tamsulosin 5. DVT ppx -SCD. No chemical ppx due to melena Disposition: Pending EGD results tomorrow VS, I&O, 24H, Fishbone Vital Signs/I&O Vital Signs Date Time Temp Pulse Resp B/P (MAP) Pulse Ox O2 Delivery O2 Flow Rate FiO2 07/22/20 06:00 98.4 64 20 118/59 (78) 96 07/22/20 04:00 Room Air I&O- Last 24 Hours up to 6 AM 07/22/20 06:00 Intake Total 0 ml Output Total 0 ml Balance 0 ml Laboratory Data 24H LABS Laboratory Tests 2 07/21/20 22:10: Immature Granulocyte % (Auto) 0.5, Neutrophils (%) (Auto) 61.9, Lymphocytes (%) (Auto) 23.6L, Monocytes (%) (Auto) 10.4H, Eosinophils (%) (Auto) 3.0, Basophils (%) (Auto) 0.6, Neutrophils # (Auto) 4.1, Lymphocytes # (Auto) 1.6, Monocytes # (Auto) 0.7, Eosinophils # (Auto) 0.2, Basophils # (Auto) 0.0, Nucleated Red Blood Cells % (auto) 0.0, Prothrombin Time 14.2H, Prothromb Time International Ratio 1.08, Activated Partial Thromboplast Time 32.2, Anion Gap 1L, Glomerular Filtration Rate > 60.0, Calcium Level 9.1, Total Bilirubin 0.4, Direct Bilirubin < 0.1, Aspartate Amino Transf (AST/SGOT) 65H, Alanine Aminotransferase (ALT/SGPT) 59, Alkaline Phosphatase 75, Total Creatine Kinase 138, Creatine Kinase MB < 1.0, Creatine Kinase MB Relative Index 0.72, Troponin I < 0.02, Total Protein 6.8, Albumin 3.4, Albumin/Globulin Ratio 1.0, Lipase 97 07/22/20 08:47: Immature Granulocyte % (Auto) 0.3, Neutrophils (%) (Auto) 58.9, Lymphocytes (%) (Auto) 25.5, Monocytes (%) (Auto) 10.8H, Eosinophils (%) (Auto) 3.7H, Basophils (%) (Auto) 0.8, Neutrophils # (Auto) 3.5, Lymphocytes # (Auto) 1.5, Monocytes # (Auto) 0.6, Eosinophils # (Auto) 0.2, Basophils # (Auto) 0.1, Nucleated Red Blood Cells % (auto) 0.0, Anion Gap 4L, Glomerular Filtration Rate > 60.0, Calcium Level 8.8, Total Bilirubin 0.6, Aspartate Amino Transf (AST/SGOT) 43H, Alanine Aminotransferase (ALT/SGPT) 54, Alkaline Phosphatase 70, Total Protein 6.2L, Albumin 3.2, Albumin/Globulin Ratio 1.1, Magnesium Level 2.2 CBC/BMP Laboratory Tests 07/21/20 22:10 07/22/20 03:59 07/22/20 08:47 Microbiology Microbiology 07/21/20 Respiratory Virus Panel (PCR) (JENNIFER) - Final, Complete CIARRA REYNAGA DO Jul 22, 2020 12:29
[2020-07-22 14:00] VITALS: BP 106/75
[2020-07-22 15:02] LABS: HEMATOCRIT 39.8 % (42.0-52.0); HEMOGLOBIN 13.3 g/dl (13.5-17.5)
[2020-07-22] MEDS ORDERED: TAMSULOSIN 0.4 MG CAP PO SCH (18:00)
[2020-07-22] MEDS ORDERED: ATORVASTATIN 20 MG TAB PO SCH (18:00)
[2020-07-22] MEDS: ALBUTEROL 90 MCG/ACT 8GM HFA INHALER INH PRN (19:08)
[2020-07-22 21:44] LABS: HEMATOCRIT 38.1 % (42.0-52.0); HEMOGLOBIN 12.7 g/dl (13.5-17.5)
[2020-07-22 22:00] VITALS: BP 107/69
[2020-07-23 03:29] LABS: HEMATOCRIT 38.2 % (42.0-52.0); HEMOGLOBIN 12.7 g/dl (13.5-17.5); MEAN CORPUSCULAR HEMOGLOBIN 33.6 pg (27.0-33.0); MEAN CORPUSCULAR HGB CONC 33.2 g/dl (32.0-36.5); MEAN CORPUSCULAR VOLUME 101.1 fl (80.0-96.0); PLATELET COUNT, AUTOMATED 147 10^3/uL (150-450); RED BLOOD COUNT 3.78 10^6/uL (4.30-6.10); WHITE BLOOD COUNT 5.3 10^3/uL (4.0-10.0)
[2020-07-23 03:50] LABS: ALT/SGPT 51 U/L (12-78); BILIRUBIN,TOTAL 0.4 MG/DL (0.2-1.0); BLOOD UREA NITROGEN 19 MG/DL (7-18); CALCIUM LEVEL 8.3 MG/DL (8.8-10.2); CARBON DIOXIDE LEVEL 33 MEQ/L (21-32); CHLORIDE LEVEL 107 MEQ/L (98-107); CREATININE FOR GFR 0.89 MG/DL (0.70-1.30); GLOMERULAR FILTRATION RATE > 60.0 (>42); GLUCOSE, FASTING 93 MG/DL (70-100); MAGNESIUM LEVEL 2.1 MG/DL (1.8-2.4); POTASSIUM SERUM 4.4 MEQ/L (3.5-5.1); SODIUM LEVEL 141 MEQ/L (136-145); TOTAL PROTEIN 5.9 GM/DL (6.4-8.2)
[2020-07-23 06:00] VITALS: BP 115/66
[2020-07-23] MEDS: ALBUTEROL 90 MCG/ACT 8GM HFA INHALER INH PRN (08:03)
[2020-07-23] MEDS ORDERED: LIDOCAINE 2% 100MG/5ML SDV (FOR ANES.) As Ordered ONE (08:09)
[2020-07-23] MEDS ORDERED: propofoL 200 MG/20 ML VIAL As Ordered ONE (08:09)
[2020-07-23] MEDS ORDERED: fentaNYL 100 MCG/2 ML INJECTION (J3010) As Ordered ONE (08:09)
[2020-07-23] MEDS: SYMBICORT 160/4.5MCG INHALER 6GM INH SCH (08:46)
[2020-07-23] MEDS ORDERED: ASPIRIN 81MG ENTERIC TABLET PO SCH (09:00)
[2020-07-23] MEDS ORDERED: APIXABAN 5 MG TAB (ELIQUIS) PO SCH (09:00)
--- NOTE | 2020-07-23 09:27 | ROOR ---
Patient Name: Bakari Arguello Procedure Date: 07/23/2020 8:59 AM Date of : 1940 Age: 80 Room: [facility] Gender: Male Note Status: Finalized Procedure: Upper GI endoscopy Indications: Melena Providers: Nikolai Oquendo MD Referring MD: Cindy Torres MD Requesting Provider: Medicines: Monitored Anesthesia Care Complications: No immediate complications. Procedure: Pre-Anesthesia Assessment: - Prior to the procedure, a History and Physical was performed, and patient medications and allergies were reviewed. The patient is competent. The risks and benefits of the procedure and the sedation options and risks were discussed with the patient. All questions were answered and informed consent was obtained. Patient identification and proposed procedure were verified by the physician, the nurse and the anesthesiologist in the procedure room. Mental Status Examination: alert and oriented. Airway Examination: normal oropharyngeal airway and neck mobility. Respiratory Examination: clear to auscultation. CV Examination: normal. Prophylactic Antibiotics: The patient does not require prophylactic antibiotics. Prior Anticoagulants: The patient has taken no previous anticoagulant or antiplatelet agents. ASA Grade Assessment: II - A patient with mild systemic disease. After reviewing the risks and benefits, the patient was deemed in satisfactory condition to undergo the procedure. The anesthesia plan was to use monitored anesthesia care (MAC). Immediately prior to administration of medications, the patient was re-assessed for adequacy to receive sedatives. The heart rate, respiratory rate, oxygen saturations, blood pressure, adequacy of pulmonary ventilation, and response to care were monitored throughout the procedure. The physical status of the patient was re-assessed after the procedure. The Endoscope was introduced through the mouth, and advanced to the second part of duodenum. The upper GI endoscopy was accomplished without difficulty. The patient tolerated the procedure well. Findings: A medium sized sessile polyp was found at the vocal cords. The polyp is non-obstructing the airway. The examined esophagus was normal. The Z-line was regular and was found 40 cm from the incisors. Patchy mild inflammation characterized by erosions, erythema and granularity was found in the gastric body and in the gastric antrum. Biopsies were taken with a cold forceps for Helicobacter pylori testing. Verification of patient identification for the specimen was done by the physician and nurse using the patient's name, date and medical record number. Estimated blood loss was minimal. Scattered moderate inflammation characterized by congestion (edema), erythema and granularity was found in the duodenal bulb and in the second portion of the duodenum. Biopsies for histology were taken with a cold forceps for evaluation of celiac disease. Impression: - A polyp was found at the vocal cords. - Normal esophagus. - Z-line regular, 40 cm from the incisors. - Gastritis. Biopsied. - Duodenitis. Biopsied. Recommendation: - Patient has a contact number available for emergencies. The signs and symptoms of potential delayed complications were discussed with the patient. Return to normal activities tomorrow. Written discharge instructions were provided to the patient. - High fiber diet. - Continue present medications. 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 - Await pathology results. - Refer to an ENT specialist for further evaluation of the vocal cord polyp at the next earliest available appointment. - Telephone GI clinic for pathology results in 2 weeks. - Return to primary care physician. Procedure Code(s): --- Professional --- 24655, Esophagogastroduodenoscopy, flexible, transoral; with biopsy, single or multiple Diagnosis Code(s): --- Professional --- J38.1, Polyp of vocal cord and larynx K29.70, Gastritis, unspecified, without bleeding K29.80, Duodenitis without bleeding K92.1, Melena (includes Hematochezia) CPT copyright 2019 [employer]. All rights reserved. The codes documented in this report are preliminary and upon international student advisor review may be revised to meet current compliance requirements. Nikolai Oquendo MD Nikolai Oquendo MD 07/23/2020 9:27:08 AM Electronically signed by Nikolai Oquendo MD Number of Addenda: 0 Note Initiated On: 07/23/2020 8:59 AM Estimated Blood Loss: Estimated blood loss was minimal.
[2020-07-23 09:28] LABS: HEMATOCRIT 41.2 % (42.0-52.0); HEMOGLOBIN 13.6 g/dl (13.5-17.5)
[2020-07-23] MEDS: PANTOPRAZOLE 40MG VIAL (C9113 PER 1) IV SCH (10:23)
[2020-07-23] MEDS: SPIRONOLACTONE 12.5MG PER 1/2 TABLET PO SCH (10:23)
[2020-07-23] MEDS: DOCUSATE SODIUM 100MG CAPSULE PO SCH (10:23)
[2020-07-23 14:00] VITALS: BP 118/55
[2020-07-23 14:57] LABS: HEMATOCRIT 39.2 % (42.0-52.0); HEMOGLOBIN 13.4 g/dl (13.5-17.5)
[2020-07-23] MEDS ORDERED: OMEP40CA97 PO (15:14)
--- NOTE | 2020-07-23 23:41 | DS.PDOC ---
Discharge Summary General Date of Admission Jul 22, 2020 at 02:31 Date of Discharge Jul 23, 2020 Discharge Summary PROCEDURES PERFORMED DURING STAY: [None]. ADMITTING DIAGNOSES: 1. . DISCHARGE DIAGNOSES: 1. . COMPLICATIONS/CHIEF COMPLAINT: Gi Bleed. HISTORY OF PRESENT ILLNESS: . HOSPITAL COURSE: . DISCHARGE MEDICATIONS: Please see below. ALLERGIES: Please see below. PHYSICAL EXAMINATION ON DISCHARGE: VITAL SIGNS: Please see below. GENERAL: HEENT: NECK: CARDIOVASCULAR EXAMINATION: RESPIRATORY EXAMINATION: ABDOMINAL EXAMINATION: EXTREMITIES: SKIN: NEUROLOGICAL EXAMINATION: PSYCHIATRIC EXAMINATION: LABORATORY DATA: Please see below. IMAGING: PROGNOSIS: ACTIVITY: [As tolerated]. DIET: DISCHARGE PLAN: DISPOSITION: Home, Self-Care. DISCHARGE INSTRUCTIONS: 1. . ITEMS TO FOLLOWUP ON ON OUTPATIENT: 1. . DISCHARGE CONDITION: [Stable]. TIME SPENT ON DISCHARGE: Greater than minutes. Vital Signs/I&Os Vital Signs Date Time Temp Pulse Resp B/P (MAP) Pulse Ox O2 Delivery O2 Flow Rate FiO2 07/23/20 14:00 98.5 57 18 118/55 (76) 95 07/23/20 09:35 Room Air I&O- Last 24 Hours up to 6 AM 07/23/20 06:00 Intake Total 1440 ml Output Total 500 ml Balance 940 ml Laboratory Data Labs 24H Laboratory Tests 2 07/23/20 03:00: Nucleated Red Blood Cells % (auto) 0.0, Anion Gap 1L, Glomerular Filtration Rate > 60.0, Calcium Level 8.3L, Magnesium Level 2.1, Total Bilirubin 0.4, Aspartate Amino Transf (AST/SGOT) 39H, Alanine Aminotransferase (ALT/SGPT) 51, Alkaline Phosphatase 68, Total Protein 5.9L, Albumin 3.0L, Albumin/Globulin Ratio 1.0 CBC/BMP Laboratory Tests 07/23/20 03:00 07/23/20 08:38 07/23/20 14:44 Microbiology Microbiology 07/22/20 Stool Occult Blood (JENNIFER) - Final, Complete 07/21/20 Respiratory Virus Panel (PCR) (JENNIFER) - Final, Complete Discharge Medications Scheduled Apixaban (Eliquis) 5 Mg Tablet, 5 MG PO BID, (Reported) 2ND DOSE AT DINNER Aspirin (Aspirin EC) 81 Mg Tablet.dr, 81 MG PO DAILY, (Reported) Atorvastatin Calcium (Atorvastatin Calcium) 40 Mg Tablet, 40 MG PO QPM, (Reported) AFTER SUPPER Budesonide/Formoterol (Symbicort 160-4.5 Mcg Inhaler) 60 Puff/Inhaler Aers, 1 PUFF INH BID, (Reported) Multivitamin (Multivitamins) 1 Each Tablet, 1 TAB PO DAILY, (Reported) Omeprazole (Omeprazole) 40 Mg Capsule.dr, 40 MG PO DAILY Sacubitril/Valsartan (Entresto 24 mg-26 mg Tablet) 1 Each Tablet, 1 TAB PO BID, (Reported) Spironolactone (Spironolactone) 25 Mg Tablet, 12.5 MG PO DAILY, (Reported) Tamsulosin Hcl (Tamsulosin HCl) 0.4 Mg Capsule, 1 TAB PO QPM, (Reported) AFTER SUPPER Umeclidinium [place] (Incruse Ellipta) 62.5 Mcg Blst.w.dev, 1 PUFF INH DAILY, (Reported) Scheduled PRN Albuterol Sulf (Albuterol Sulfate) 2.5 Mg/3 Ml Nebu, 2.5 MG INH QID PRN for SHORTNESS OF BREATH, (Reported) Albuterol Sulfate (Proair Hfa) 108 Mcg/Act Aer, 2 PUFF INH Q4H PRN for SHORTNESS OF BREATH, (Reported) Nitroglycerin (Nitrostat) 0.4 Mg Tab.subl, 0.4 MG SL PRN PRN for CHEST PAIN, (Reported) Allergies Coded Allergies: No Known Allergies (Unverified , 05/11/20) CIARRA REYNAGA DO Jul 23, 2020 23:41
[2020-07-24] MEDS ORDERED: PANTOPRAZOLE 40MG VIAL (C9113 PER 1) IV SCH (09:00)
== END 2020-07-23 16:53 | disposition home or self-care (01) | DRG 392 ==
LOC: M ED 19:06 → M ED INP 07-22 02:31 → ENRESERV 07-22 02:58 → M MSPAV 07-22 03:51
PROVIDERS: ADMIT Family Medicine; ATTEND Internal Medicine
PROC: 0DB78ZX Excision of Stomach, Pylorus, Via Natural or Artificial Opening Endoscopic, Diagnostic (ICD-10-PCS; principal; 2020-07-23 14:00)
DX: K29.70 Gastritis, unspecified, without bleeding (principal); K92.1 Melena; I48.91 Unspecified atrial fibrillation; I25.10 Atherosclerotic heart disease of native coronary artery without angina pectoris; J44.9 Chronic obstructive pulmonary disease, unspecified; I10 Essential (primary) hypertension; J38.1 Polyp of vocal cord and larynx; K29.80 Duodenitis without bleeding; N40.0 Benign prostatic hyperplasia without lower urinary tract symptoms; Z95.5 Presence of coronary angioplasty implant and graft; Z79.01 Long term (current) use of anticoagulants; Z90.49 Acquired absence of other specified parts of digestive tract; F17.200 Nicotine dependence, unspecified, uncomplicated; Z79.899 Other long term (current) drug therapy

== ENCOUNTER 2020-08-27 19:46 | Emergency (ER) | payer MEDICARE, BC, OTHER ==
[~2020-08-27] VITALS: Ht 177.8 cm; Wt 77.7 kg
[~2020-08-27 19:46] MED LIST changes: +ASPI81TA26 PO; +ATOR40TA75 PO; +MULTTAB61 PO; +OMEP40CA97 PO; +SPIR-10 PO
[2020-08-27] MEDS ORDERED: LIDOCAINE 1% MDV 20ML VIAL As Ordered ONE (21:52)
[2020-08-27] MEDS ORDERED: LIDOCAINE 1% MDV 20ML VIAL SC ONE (22:05)
[2020-08-27] MEDS ORDERED: CEPHALEXIN 500 MG CAP PO ONE (22:05)
[2020-08-27] MEDS ORDERED: CEPH500C PO (22:16)
[2020-08-27 22:35] VITALS: BP 133/65
== END 2020-08-27 22:36 | disposition home or self-care (01) ==
LOC: M ED 19:46
DX: S61.215A Laceration without foreign body of left ring finger without damage to nail, initial encounter (principal); W27.0XXA Contact with workbench tool, initial encounter; Y92.009 Unspecified place in unspecified non-institutional (private) residence as the place of occurrence of the external cause; Y93.9 Activity, unspecified; Y99.9 Unspecified external cause status; I48.91 Unspecified atrial fibrillation; I25.10 Atherosclerotic heart disease of native coronary artery without angina pectoris; I10 Essential (primary) hypertension; J44.9 Chronic obstructive pulmonary disease, unspecified; N40.0 Benign prostatic hyperplasia without lower urinary tract symptoms; Z79.82 Long term (current) use of aspirin; Z79.899 Other long term (current) drug therapy

== ENCOUNTER → 2020-12-21 | Outpatient (CLI) | payer MEDICARE, BC, OTHER ==
[~2020-12-21] MED LIST changes: +CEPH500C PO; +OMEP40CA4 PO; -OMEP40CA97 PO
--- NOTE | 2020-12-21 12:28 | REP ---
INDICATION: HX OF NICOTINE DEPENDENCE. COMPARISON: Comparison is made with prior chest CT studies dated August 14, 2019, February 11, 2018, May 08, 2017, and October 24, 2016. TECHNIQUE: Dose reduction was performed utilizing CARE dose with automated adjustment of the kV and MAS according to patient size; iterative reconstruction, automated exposure control, as well as adaptive dose shielding. Helical scanning is acquired and 3 millimeter axial images are re-formatted at lung windows. FINDINGS: Preliminary digital supervisor public message service radiograph shows hyperinflation of the lung rich. On axial CT images, there is moderate stable biapical pleuroparenchymal fibrosis and there is bilateral upper lobe and some lower lobe emphysematous change. There is a stable 7 mm nodule in the right lower lobe on page 82 of 116 in series 201 of today's study. There is a 3-4 mm stable nodule in the left upper lobe on page 32. There is a granulomatous calcification in the left upper lobe on page 25. No pulmonary mass or other new nodule is seen. Study is otherwise unremarkable. IMPRESSION: Lung RADS category 2 findings. Repeat screening chest CT study recommended in 1 year. <Electronically signed by Leif Nieto > 12/21/20 3902
== END ==
LOC: M RAD 11:02
PROVIDERS: ATTEND Internal Medicine Pulmonary Disease
DX: Z12.2 Encounter for screening for malignant neoplasm of respiratory organs (principal); Z87.891 Personal history of nicotine dependence; J84.10 Pulmonary fibrosis, unspecified; J43.9 Emphysema, unspecified; R91.1 Solitary pulmonary nodule

== ENCOUNTER 2021-03-24 09:42 | Emergency (ER) | payer MEDICARE, BC, OTHER ==
[~2021-03-24] VITALS: Ht 180.3 cm; Wt 67.2 kg
[2021-03-24] MEDS ORDERED: COMBIVENT RESPIMAT 100-20MCG INHALER 4GM INH STA (11:54)
[2021-03-24 12:28] LABS: VENOUS BASE EXCESS 7.4 (-2.0-2.0); VENOUS HCO3 36.7 MEQ/L (23.0-27.0); VENOUS O2 SATURATION 45.2 % (60.0-80.0); VENOUS PARTIAL PRESSURE CO2 70.5 mmHg (38.0-50.0); VENOUS PARTIAL PRESSURE O2 24.2 mmHg (30.0-50.0); VENOUS PH 7.334 UNITS (7.330-7.430); VENOUS STANDARD HCO3 29.5 MEQ/L; VENOUS TOTAL CO2 38.8 MEQ/L (24.0-28.0)
[2021-03-24 12:38] LABS: BASO % 0.4 % (0.0-1.0); EOS # 0.2 10^3/uL (0.0-0.5); EOS % 1.6 % (0.0-3.0); HEMATOCRIT 49.3 % (42.0-52.0); HEMOGLOBIN 16.2 g/dl (13.5-17.5); LYMPH % 19.2 % (24.0-44.0); MEAN CORPUSCULAR HEMOGLOBIN 33.9 pg (27.0-33.0); MEAN CORPUSCULAR HGB CONC 32.9 g/dl (32.0-36.5); MEAN CORPUSCULAR VOLUME 103.1 fl (80.0-96.0); NEUTROPHILS % 68.2 % (36.0-66.0); PLATELET COUNT, AUTOMATED 188 10^3/uL (150-450); RED BLOOD COUNT 4.78 10^6/uL (4.30-6.10); WHITE BLOOD COUNT 10.3 10^3/uL (4.0-10.0)
[2021-03-24 12:51] LABS: INR 1.02; PARTIAL THROMBOPLASTIN TIME 29.4 SECONDS (25.9-37.0); PROTHROMBIN TIME 13.8 SECONDS (12.7-14.5)
[2021-03-24 13:10] LABS: ALBUMIN 3.7 GM/DL (3.2-5.2); ALT/SGPT 37 U/L (12-78); BILIRUBIN,DIRECT 0.1 MG/DL (0.0-0.2); BILIRUBIN,TOTAL 0.4 MG/DL (0.2-1.0); BLOOD UREA NITROGEN 27 MG/DL (7-18); CALCIUM LEVEL 9.8 MG/DL (8.8-10.2); CARBON DIOXIDE LEVEL 35 MEQ/L (21-32); CHLORIDE LEVEL 102 MEQ/L (98-107); CREATININE FOR GFR 0.98 MG/DL (0.70-1.30); GLOMERULAR FILTRATION RATE > 60.0 (>42); GLUCOSE, FASTING 96 MG/DL (70-100); NT-PRO BNP 45 PG/ML (<450); POTASSIUM SERUM 4.1 MEQ/L (3.5-5.1); SODIUM LEVEL 140 MEQ/L (136-145); TOTAL PROTEIN 7.3 GM/DL (6.4-8.2)
[2021-03-24] MEDS ORDERED: AUGM875T28 PO (13:43)
[2021-03-24] MEDS ORDERED: AUGMENTIN 875 MG TAB PO ONE (13:50)
[2021-03-24 14:48] VITALS: BP 118/84
== END 2021-03-24 14:49 | disposition home or self-care (01) ==
LOC: M ED 09:42
DX: J01.90 Acute sinusitis, unspecified (principal); B34.1 Enterovirus infection, unspecified; I48.91 Unspecified atrial fibrillation; I11.0 Hypertensive heart disease with heart failure; I50.9 Heart failure, unspecified; J44.9 Chronic obstructive pulmonary disease, unspecified; R91.8 Other nonspecific abnormal finding of lung field; Z79.01 Long term (current) use of anticoagulants; Z79.899 Other long term (current) drug therapy

== ENCOUNTER → 2021-12-22 | Outpatient (CLI) | payer MEDICARE, BC, OTHER ==
[~2021-12-22] MED LIST changes: +ALBU2.5V10 INH; -ALBU83IN INH; +AUGM875T28 PO; +FLUTISP
== END ==
LOC: M RAD 06:23
PROVIDERS: ATTEND Internal Medicine Pulmonary Disease
DX: J44.9 Chronic obstructive pulmonary disease, unspecified (principal); Z87.891 Personal history of nicotine dependence

== ENCOUNTER → 2021-12-26 | Outpatient (CLI) | payer MEDICARE, BC, OTHER | LOC: M LABSMTC 09:25 | PROVIDERS: ATTEND Anesthesiology | DX: Z01.818 Encounter for other preprocedural examination (principal); Z11.52 Encounter for screening for COVID-19 ==

== ENCOUNTER 2022-01-02 12:16 | Day surgery (SDC) | payer MEDICARE, BC, OTHER ==
[~2022-01-02] VITALS: Ht 180.3 cm; Wt 64.5 kg
[~2022-01-02 12:16] MED LIST changes: +fentaNYL 100 MCG/2 ML INJECTION As Ordered ONE
[2022-01-02] MEDS ORDERED: ROCURONIUM BROMIDE 50 MG/5 ML VIAL As Ordered ONE (12:17)
[2022-01-02] MEDS ORDERED: propofoL 200 MG/20 ML VIAL As Ordered ONE (12:17)
[2022-01-02] MEDS ORDERED: LIDOCAINE 2% 100MG/5ML SDV (FOR ANES.) As Ordered ONE (12:22)
[2022-01-02] MEDS ORDERED: LR 1,000 ML IV SCH ×3 (12:25→14:05)
[2022-01-02] MEDS ORDERED: dexameTHASONE 4 MG/ML 1ML VIAL (J1100 PER 1MG) As Ordered ONE (12:48)
[2022-01-02] MEDS ORDERED: SUGAMMADEX SODIUM 500 MG/5 ML VIAL (BRIDION) As Ordered ONE (12:50)
[2022-01-02] MEDS ORDERED: ONDANSETRON 4MG 2ML VIAL As Ordered ONE (12:51)
[2022-01-02] MEDS ORDERED: OXYMETAZOLINE 0.05% NASAL SPRAY (AFRIN) As Ordered ONE (13:03)
[2022-01-02] MEDS ORDERED: ePHEDrine SULFATE 25 MG/5 ML(5MG/ML) SYRINGE As Ordered ONE (13:19)
[2022-01-02] MEDS ORDERED: ACETAMINOPHEN 1000MG 100ML IV BTL (OFIRMEV) (J0131 PER 10MG) As Ordered ONE (13:27)
[2022-01-02] MEDS ORDERED: MORPHINE 2 MG/ML 1ML VIAL IV PRN (13:35)
[2022-01-02] MEDS ORDERED: fentaNYL 100 MCG/2 ML INJECTION IV PRN (13:35)
[2022-01-02] MEDS ORDERED: oxyCODONE 5MG TAB PO PRN (13:35)
[2022-01-02] MEDS ORDERED: ONDANSETRON 4MG 2ML VIAL IV PRN ×2 (13:35→14:05)
[2022-01-02] MEDS ORDERED: ANEXSIA, NORCO 7.5MG/325MG TABLET(HYDROCODONE/APAP) PO PRN (14:05)
[2022-01-02 14:30] VITALS: BP 119/62
== END 2022-01-02 14:47 | disposition home or self-care (01) ==
LOC: M SDC 12:16
PROVIDERS: ATTEND Otolaryngology
DX: C32.9 Malignant neoplasm of larynx, unspecified (principal); I10 Essential (primary) hypertension; I48.91 Unspecified atrial fibrillation; I25.10 Atherosclerotic heart disease of native coronary artery without angina pectoris; Z98.61 Coronary angioplasty status; Z79.01 Long term (current) use of anticoagulants; Z79.899 Other long term (current) drug therapy; Z79.51 Long term (current) use of inhaled steroids; J44.9 Chronic obstructive pulmonary disease, unspecified; Z87.891 Personal history of nicotine dependence; E78.5 Hyperlipidemia, unspecified; N40.0 Benign prostatic hyperplasia without lower urinary tract symptoms
CPT/HCPCS: 31536; 87635; 88305; J0131; J1100; J2405; J3010

== ENCOUNTER → 2022-01-18 | Outpatient (CLI) | payer MEDICARE, BC, OTHER ==
[~2022-01-18] MED LIST changes: -fentaNYL 100 MCG/2 ML INJECTION As Ordered ONE
== END ==
LOC: M ONCR 12:42
PROVIDERS: ATTEND General Practice
DX: C32.0 Malignant neoplasm of glottis (principal); F17.210 Nicotine dependence, cigarettes, uncomplicated; I10 Essential (primary) hypertension; I48.0 Paroxysmal atrial fibrillation; J44.9 Chronic obstructive pulmonary disease, unspecified; N40.0 Benign prostatic hyperplasia without lower urinary tract symptoms; Z79.01 Long term (current) use of anticoagulants; Z79.51 Long term (current) use of inhaled steroids; Z79.899 Other long term (current) drug therapy
CPT/HCPCS: 31575; G0463

== ENCOUNTER 2022-02-13 11:04 | Outpatient (RCR) | payer MEDICARE, BC, OTHER ==
[2022-02-20] MEDS ORDERED: MAGICMW PO (11:51)
[2022-02-23] MEDS ORDERED: OXYC1SOL3 PO (15:50)
[2022-03-13] MEDS ORDERED: OXYC1SOL3 PO (11:34)
== END 2022-02-13 23:59 | disposition home or self-care (01) ==
LOC: M ONCR 11:04
PROVIDERS: ATTEND General Practice
DX: C32.0 Malignant neoplasm of glottis (principal)

== ENCOUNTER → 2022-02-23 | Outpatient (CLI) | payer MEDICARE, BC, OTHER ==
[~2022-02-23] MED LIST changes: +MAGICMW PO; +OXYC1SOL3 PO
[2022-02-23 13:04] LABS: BASO % 0.5 % (0.0-1.0); EOS # 0.2 10^3/uL (0.0-0.5); EOS % 2.4 % (0.0-3.0); HEMATOCRIT 43.9 % (42.0-52.0); HEMOGLOBIN 14.4 g/dl (13.5-17.5); LYMPH # 1.4 10^3/uL (1.5-5.0); LYMPH % 22.5 % (24.0-44.0); MEAN CORPUSCULAR HEMOGLOBIN 33.6 pg (27.0-33.0); MEAN CORPUSCULAR HGB CONC 32.8 g/dl (32.0-36.5); MEAN CORPUSCULAR VOLUME 102.3 fl (80.0-96.0); MONO # 0.7 10^3/uL (0.0-0.8); MONO % 11.8 % (2.0-8.0); NEUTROPHILS # 3.9 10^3/uL (1.5-8.5); NEUTROPHILS % 62.6 % (36.0-66.0); PLATELET COUNT, AUTOMATED 153 10^3/uL (150-450); RED BLOOD COUNT 4.29 10^6/uL (4.30-6.10); WHITE BLOOD COUNT 6.2 10^3/uL (4.0-10.0)
[2022-02-23 13:32] LABS: ALBUMIN 3.4 GM/DL (3.2-5.2); ALT/SGPT 76 U/L (12-78); BILIRUBIN,TOTAL 0.3 MG/DL (0.2-1.0); BLOOD UREA NITROGEN 19 MG/DL (7-18); CARBON DIOXIDE LEVEL 35 MEQ/L (21-32); CHLORIDE LEVEL 101 MEQ/L (98-107); CREATININE FOR GFR 0.87 MG/DL (0.70-1.30); GLOMERULAR FILTRATION RATE > 60.0 (>35); GLUCOSE, FASTING 84 MG/DL (70-100); POTASSIUM SERUM 4.3 MEQ/L (3.5-5.1); SODIUM LEVEL 140 MEQ/L (136-145); TOTAL PROTEIN 6.7 GM/DL (6.4-8.2)
== END ==
LOC: M LAB 11:55
PROVIDERS: ATTEND Nurse Practitioner Family
DX: J44.9 Chronic obstructive pulmonary disease, unspecified (principal)

== ENCOUNTER 2022-03-15 10:48 | Outpatient (RCR) | payer MEDICARE, BC, OTHER | END 2022-03-15 23:59 | disposition home or self-care (01) | LOC: M ONCR 10:48 | PROVIDERS: ATTEND General Practice | DX: C32.0 Malignant neoplasm of glottis (principal) ==

== ENCOUNTER 2022-03-17 10:54 | Outpatient (RCR) | payer MEDICARE, BC, OTHER ==
[2022-03-20] MEDS ORDERED: OXYC1SOL3 PO (13:52)
== END 2022-04-15 ==
LOC: M ONCR 10:54
PROVIDERS: ATTEND General Practice
DX: C32.0 Malignant neoplasm of glottis (principal)

== ENCOUNTER → 2022-06-15 | Outpatient (CLI) | payer MEDICARE, BC, OTHER | LOC: M ONCR 11:04 | PROVIDERS: ATTEND General Practice | DX: C32.0 Malignant neoplasm of glottis (principal); F17.210 Nicotine dependence, cigarettes, uncomplicated; Z79.01 Long term (current) use of anticoagulants; Z79.51 Long term (current) use of inhaled steroids; Z79.899 Other long term (current) drug therapy; Z92.3 Personal history of irradiation | CPT/HCPCS: 31575; G0463 ==

== ENCOUNTER → 2022-09-15 | Outpatient (CLI) | payer MEDICARE, BC, OTHER ==
[~2022-09-15] MED LIST changes: +FLUT50SP17; -FLUTISP
[2022-09-15 13:59] LABS: FREE T4 1.01 NG/DL (0.89-1.76); THYROID STIMULATING HORMONE 0.292 uIU/ML (0.55-4.78)
== END ==
LOC: M ONCR 11:02
PROVIDERS: ATTEND General Practice
DX: C32.0 Malignant neoplasm of glottis (principal); F17.210 Nicotine dependence, cigarettes, uncomplicated; Z71.2 Person consulting for explanation of examination or test findings; Z79.01 Long term (current) use of anticoagulants; Z79.51 Long term (current) use of inhaled steroids; Z79.899 Other long term (current) drug therapy; Z92.3 Personal history of irradiation
CPT/HCPCS: 31575; 36415; 84439; 84443; G0463

== ENCOUNTER → 2022-09-18 | Outpatient (CLI) | payer MEDICARE, BC, OTHER ==
[2022-09-18 08:23] LABS: BASO % 0.6 % (0.0-1.0); EOS # 0.2 10^3/uL (0.0-0.5); EOS % 2.7 % (0.0-3.0); HEMOGLOBIN 15.1 g/dl (13.5-17.5); LYMPH # 1.3 10^3/uL (1.5-5.0); LYMPH % 20.1 % (24.0-44.0); MEAN CORPUSCULAR HEMOGLOBIN 34.6 pg (27.0-33.0); MEAN CORPUSCULAR HGB CONC 32.8 g/dl (32.0-36.5); MEAN CORPUSCULAR VOLUME 105.5 fl (80.0-96.0); MONO # 0.6 10^3/uL (0.0-0.8); MONO % 9.2 % (2.0-8.0); NEUTROPHILS # 4.2 10^3/uL (1.5-8.5); NEUTROPHILS % 67.2 % (36.0-66.0); PLATELET COUNT, AUTOMATED 155 10^3/uL (150-450); RED BLOOD COUNT 4.36 10^6/uL (4.30-6.10); WHITE BLOOD COUNT 6.3 10^3/uL (4.0-10.0)
[2022-09-18 08:49] LABS: ALBUMIN 3.3 G/DL (3.2-5.2); ALKALINE PHOSPHATASE 77 U/L (46-116); ALT/SGPT 48 U/L (7.0-40); AST/SGOT 30 U/L (<34); BILIRUBIN,TOTAL 0.6 MG/DL (0.3-1.2); BLOOD UREA NITROGEN 19 MG/DL (9-23); CALCIUM LEVEL 8.2 MG/DL (8.3-10.6); CARBON DIOXIDE LEVEL 35 MMOL/L (20-31); CHLORIDE LEVEL 101 MMOL/L (98-107); CREATININE FOR GFR 0.88 MG/DL (0.70-1.30); GLOMERULAR FILTRATION RATE > 60.0 (>35); GLUCOSE, FASTING 140 MG/DL (74-106); SODIUM LEVEL 138 MMOL/L (136-145); TOTAL PROTEIN 6.2 G/DL (5.7-8.2)
== END ==
LOC: M LAB 07:53
PROVIDERS: ATTEND Nurse Practitioner Family
DX: J44.9 Chronic obstructive pulmonary disease, unspecified (principal)

== ENCOUNTER → 2022-12-19 | Outpatient (CLI) | payer MEDICARE, BC, OTHER | LOC: M ONCR 11:07 | PROVIDERS: ATTEND General Practice | DX: Z08 Encounter for follow-up examination after completed treatment for malignant neoplasm (principal); Z85.21 Personal history of malignant neoplasm of larynx; F17.210 Nicotine dependence, cigarettes, uncomplicated; Z92.3 Personal history of irradiation; Z79.01 Long term (current) use of anticoagulants; Z79.899 Other long term (current) drug therapy; Z79.51 Long term (current) use of inhaled steroids; Z71.2 Person consulting for explanation of examination or test findings | CPT/HCPCS: 31575; G0463 ==

== ENCOUNTER → 2022-12-26 | Outpatient (CLI) | payer MEDICARE, BC, OTHER | LOC: M RAD 08:24 | PROVIDERS: ATTEND Registered Nurse | DX: K40.90 Unilateral inguinal hernia, without obstruction or gangrene, not specified as recurrent (principal) ==

== ENCOUNTER → 2023-03-01 | Outpatient (CLI) | payer MEDICARE, BC, OTHER ==
[2023-03-01 15:02] LABS: BASO % 0.2 % (0.0-1.0); EOS % 0.2 % (0.0-3.0); HEMATOCRIT 42.3 % (42.0-52.0); HEMOGLOBIN 13.9 g/dl (13.5-17.5); LYMPH # 0.6 10^3/uL (1.5-5.0); LYMPH % 10.7 % (24.0-44.0); MEAN CORPUSCULAR HEMOGLOBIN 33.9 pg (27.0-33.0); MEAN CORPUSCULAR HGB CONC 32.9 g/dl (32.0-36.5); MEAN CORPUSCULAR VOLUME 103.2 fl (80.0-96.0); MONO # 0.2 10^3/uL (0.0-0.8); MONO % 4.4 % (2.0-8.0); NEUTROPHILS # 4.6 10^3/uL (1.5-8.5); NEUTROPHILS % 84.1 % (36.0-66.0); PLATELET COUNT, AUTOMATED 168 10^3/uL (150-450); WHITE BLOOD COUNT 5.5 10^3/uL (4.0-10.0)
[2023-03-01 15:12] LABS: ALBUMIN 3.5 G/DL (3.2-5.2); ALKALINE PHOSPHATASE 112 U/L (46-116); ALT/SGPT 108 U/L (7.0-40); AST/SGOT 74 U/L (<34); BILIRUBIN,TOTAL 0.4 MG/DL (0.3-1.2); BLOOD UREA NITROGEN 31 MG/DL (9-23); CARBON DIOXIDE LEVEL 31 MMOL/L (20-31); CHLORIDE LEVEL 105 MMOL/L (98-107); CREATININE FOR GFR 0.94 MG/DL (0.70-1.30); GLOMERULAR FILTRATION RATE > 60.0 (>35); GLUCOSE, FASTING 116 MG/DL (74-106); POTASSIUM SERUM 5.1 MMOL/L (3.5-5.1); SODIUM LEVEL 141 MMOL/L (136-145); TOTAL PROTEIN 7.1 G/DL (5.7-8.2)
== END ==
LOC: M LAB 14:17
PROVIDERS: ATTEND Family Medicine
DX: Z01.818 Encounter for other preprocedural examination (principal); J44.1 Chronic obstructive pulmonary disease with (acute) exacerbation

== ENCOUNTER 2023-03-04 19:46 | Emergency (ER) | payer MEDICARE, BC, OTHER ==
[~2023-03-04] VITALS: Ht 177.8 cm; Wt 65.5 kg
[2023-03-04 19:47] VITALS: BP 138/65; TEMP 97.8; O2SAT 94
[2023-03-04] MEDS ORDERED: DIPH50CA PO (19:53)
== END 2023-03-04 23:00 | disposition left against medical advice (07) ==
LOC: M ED 19:46
DX: Z53.21 Procedure and treatment not carried out due to patient leaving prior to being seen by health care provider (principal)

== ENCOUNTER 2023-03-05 06:07 | Emergency (ER) | payer MEDICARE, BC, OTHER ==
[~2023-03-05] VITALS: Ht 177.8 cm; Wt 65.9 kg
[~2023-03-05 06:07] MED LIST changes: +DIPH50CA PO
[2023-03-05 08:08] VITALS: BP 112/54; TEMP 96.4; O2SAT 98
== END 2023-03-05 08:14 | disposition home or self-care (01) ==
LOC: M ED 06:07
DX: R21 Rash and other nonspecific skin eruption (principal); T36.8X5A Adverse effect of other systemic antibiotics, initial encounter; I10 Essential (primary) hypertension; E78.5 Hyperlipidemia, unspecified; J44.9 Chronic obstructive pulmonary disease, unspecified; Z86.79 Personal history of other diseases of the circulatory system; Z87.891 Personal history of nicotine dependence; Z79.52 Long term (current) use of systemic steroids; Z79.02 Long term (current) use of antithrombotics/antiplatelets; Z79.810 Long term (current) use of selective estrogen receptor modulators (SERMs); Z79.899 Other long term (current) drug therapy

== ENCOUNTER → 2023-03-20 | Outpatient (CLI) | payer MEDICARE, BC, OTHER ==
[~2023-03-20] MED LIST changes: +ALBU8.5H INH; +DOXY-444 PO; -FLUT50SP17; +FLUTISP; +GUAI600T12 PO; +PRED10PA PO
== END ==
LOC: M ONCR 10:43
PROVIDERS: ATTEND General Practice
DX: Z01.818 Encounter for other preprocedural examination (principal); Z08 Encounter for follow-up examination after completed treatment for malignant neoplasm; I48.92 Unspecified atrial flutter; I48.91 Unspecified atrial fibrillation; Z71.2 Person consulting for explanation of examination or test findings; F17.210 Nicotine dependence, cigarettes, uncomplicated; Z85.21 Personal history of malignant neoplasm of larynx; Z79.2 Long term (current) use of antibiotics; Z79.01 Long term (current) use of anticoagulants; Z79.51 Long term (current) use of inhaled steroids; Z79.899 Other long term (current) drug therapy; Z88.1 Allergy status to other antibiotic agents; Z92.3 Personal history of irradiation; Z95.5 Presence of coronary angioplasty implant and graft
CPT/HCPCS: 31575; 71046; G0463

== ENCOUNTER → 2023-03-20 | Outpatient (CLI) | payer MEDICARE, BC, OTHER | LOC: M RAD 10:18 | PROVIDERS: ATTEND Anesthesiology | DX: Z01.818 Encounter for other preprocedural examination (principal); I48.92 Unspecified atrial flutter; Z95.5 Presence of coronary angioplasty implant and graft; I48.91 Unspecified atrial fibrillation ==

== ENCOUNTER 2023-03-29 06:52 | Day surgery (SDC) | payer MEDICARE, BC, OTHER ==
[~2023-03-29] VITALS: Ht 177.8 cm; Wt 64.9 kg
[~2023-03-29 06:52] MED LIST changes: +ceFAZolin SOD 2 GM in IV 1 EA IV ONE
[2023-03-29] MEDS ORDERED: ROCURONIUM BROMIDE 50MG/5ML VIAL As Ordered ONE (07:45)
[2023-03-29] MEDS ORDERED: ONDANSETRON 4MG 2ML VIAL As Ordered ONE (07:45)
[2023-03-29] MEDS ORDERED: LIDOCAINE 2% 100MG/5ML SDV (FOR ANES.) As Ordered ONE (07:45)
[2023-03-29] MEDS ORDERED: propofoL 200 MG/20 ML VIAL As Ordered ONE (07:45)
[2023-03-29] MEDS ORDERED: KETOROLAC 60MG 2ML VIAL As Ordered ONE (07:45)
[2023-03-29] MEDS ORDERED: SUGAMMADEX SODIUM 500 MG/5 ML VIAL (BRIDION) As Ordered ONE (07:45)
[2023-03-29] MEDS ORDERED: fentaNYL 100 MCG/2 ML INJECTION As Ordered ONE (07:51)
[2023-03-29] MEDS ORDERED: LR 1,000 ML IV SCH (08:00)
[2023-03-29] MEDS ORDERED: LIDOCAINE W/EPINEPHRINE 1% 20ML VIAL As Ordered ONE (08:52)
[2023-03-29] MEDS ORDERED: ACETAMINOPHEN 1000MG 100ML IV BAG As Ordered ONE (09:21)
[2023-03-29] MEDS ORDERED: fentaNYL 100 MCG/2 ML INJECTION IV PRN (10:15)
[2023-03-29] MEDS ORDERED: ONDANSETRON 4MG 2ML VIAL IV PRN (10:15)
[2023-03-29] MEDS ORDERED: oxyCODONE 5MG TAB PO PRN (10:15)
[2023-03-29] MEDS ORDERED: MORPHINE 2 MG/ML 1ML VIAL IV PRN (10:15)
[2023-03-29 12:32] VITALS: BP 110/61; TEMP 97.7; O2SAT 95
== END 2023-03-29 12:32 | disposition home or self-care (01) ==
LOC: M SDC 06:52
PROVIDERS: ATTEND Surgery
DX: K40.90 Unilateral inguinal hernia, without obstruction or gangrene, not specified as recurrent (principal); I10 Essential (primary) hypertension; E78.5 Hyperlipidemia, unspecified; K57.92 Diverticulitis of intestine, part unspecified, without perforation or abscess without bleeding; I25.10 Atherosclerotic heart disease of native coronary artery without angina pectoris; I48.91 Unspecified atrial fibrillation; Z98.61 Coronary angioplasty status; Z79.51 Long term (current) use of inhaled steroids; Z79.2 Long term (current) use of antibiotics; Z79.899 Other long term (current) drug therapy; N40.0 Benign prostatic hyperplasia without lower urinary tract symptoms; Z87.891 Personal history of nicotine dependence; J44.9 Chronic obstructive pulmonary disease, unspecified; Z88.1 Allergy status to other antibiotic agents; Z92.3 Personal history of irradiation
CPT/HCPCS: 49650; C1781; J0131; J1100; J1885; J2405; J3010; S2900

== ENCOUNTER → 2023-09-19 | Outpatient (CLI) | payer MEDICARE, BC ==
[~2023-09-19] MED LIST changes: +DOXY-440 PO; -DOXY-444 PO; -ceFAZolin SOD 2 GM in IV 1 EA IV ONE
== END ==
LOC: M ONCR 11:01
PROVIDERS: ATTEND General Practice
DX: C32.0 Malignant neoplasm of glottis (principal); F17.210 Nicotine dependence, cigarettes, uncomplicated; Z88.1 Allergy status to other antibiotic agents; Z79.899 Other long term (current) drug therapy
CPT/HCPCS: 31575; G0463

== ENCOUNTER → 2023-12-03 | Outpatient (REF) | payer MEDICARE, BC ==
[2023-12-03 13:06] LABS: BASO % 0.7 % (0.0-1.0); EOS # 0.1 10^3/uL (0.0-0.5); EOS % 2.2 % (0.0-3.0); HEMATOCRIT 43.9 % (42.0-52.0); HEMOGLOBIN 14.3 g/dl (13.5-17.5); LYMPH # 1.4 10^3/uL (1.5-5.0); LYMPH % 22.5 % (24.0-44.0); MEAN CORPUSCULAR HGB CONC 32.6 g/dl (32.0-36.5); MEAN CORPUSCULAR VOLUME 104.3 fl (80.0-96.0); MONO # 0.6 10^3/uL (0.0-0.8); MONO % 9.1 % (2.0-8.0); NEUTROPHILS # 3.9 10^3/uL (1.5-8.5); NEUTROPHILS % 65.2 % (36.0-66.0); PLATELET COUNT, AUTOMATED 155 10^3/uL (150-450); RED BLOOD COUNT 4.21 10^6/uL (4.30-6.10)
[2023-12-03 13:14] LABS: ALBUMIN 3.5 G/DL (3.2-5.2); ALKALINE PHOSPHATASE 99 U/L (46-116); ALT/SGPT 83 U/L (7.0-40); AST/SGOT 71 U/L (<34); BILIRUBIN,TOTAL 0.5 MG/DL (0.3-1.2); BLOOD UREA NITROGEN 13 MG/DL (9-23); CALCIUM LEVEL 9.4 MG/DL (8.3-10.6); CARBON DIOXIDE LEVEL 34 MMOL/L (20-31); CHLORIDE LEVEL 104 MMOL/L (98-107); CHOLESTEROL LEVEL 150 MG/DL (<200); CHOLESTEROL RISK RATIO 2.35 (<5); CREATININE FOR GFR 0.81 MG/DL (0.70-1.30); GLOMERULAR FILTRATION RATE > 60.0 (>35); GLUCOSE, FASTING 117 MG/DL (74-106); HDL CHOLESTEROL 63.6 MG/DL (>40); LDL CHOLESTEROL 69.4 MG/DL (<100); NON-HDL-C 86.4 MG/DL; POTASSIUM SERUM 4.6 MMOL/L (3.5-5.1); SODIUM LEVEL 140 MMOL/L (136-145); TOTAL PROTEIN 6.9 G/DL (5.7-8.2); TRIGLYCERIDES LEVEL 85 MG/DL (<150)
== END ==
LOC: M LABDRWAD 12:32
PROVIDERS: ATTEND Registered Nurse
DX: I11.0 Hypertensive heart disease with heart failure (principal)

== ENCOUNTER → 2023-12-20 | Outpatient (CLI) | payer MEDICARE, BC | LOC: M ONCR 07:49 | PROVIDERS: ATTEND General Practice | DX: Z08 Encounter for follow-up examination after completed treatment for malignant neoplasm (principal); Z85.21 Personal history of malignant neoplasm of larynx; F17.218 Nicotine dependence, cigarettes, with other nicotine-induced disorders; Z79.02 Long term (current) use of antithrombotics/antiplatelets; Z79.52 Long term (current) use of systemic steroids; Z79.01 Long term (current) use of anticoagulants; Z79.51 Long term (current) use of inhaled steroids; Z79.899 Other long term (current) drug therapy; Z88.1 Allergy status to other antibiotic agents; Z92.3 Personal history of irradiation | CPT/HCPCS: 31575; G0463 ==

== ENCOUNTER 2023-12-27 18:27 | Emergency (ER) | payer MEDICARE, BC ==
[~2023-12-27] VITALS: Ht 180.3 cm; Wt 65.9 kg
[2023-12-27 18:27] VITALS: BP 112/72; TEMP 97.3; O2SAT 94
[2023-12-27] MEDS ORDERED: FLOM0.4C39 PO (20:21)
== END 2023-12-27 20:26 | disposition home or self-care (01) ==
LOC: M ED 18:27
DX: N40.1 Benign prostatic hyperplasia with lower urinary tract symptoms (principal); I48.91 Unspecified atrial fibrillation; I10 Essential (primary) hypertension; J44.9 Chronic obstructive pulmonary disease, unspecified; Z79.01 Long term (current) use of anticoagulants; Z79.899 Other long term (current) drug therapy; Z88.8 Allergy status to other drugs, medicaments and biological substances

== ENCOUNTER → 2024-03-24 | Outpatient (CLI) | payer MEDICARE, BC ==
[2024-03-24 09:25] LABS: BASO % 0.5 % (0.0-1.0); EOS # 0.1 10^3/uL (0.0-0.5); EOS % 1.7 % (0.0-3.0); HEMATOCRIT 41.6 % (42.0-52.0); HEMOGLOBIN 13.8 g/dl (13.5-17.5); LYMPH # 2.1 10^3/uL (1.5-5.0); LYMPH % 27.7 % (24.0-44.0); MEAN CORPUSCULAR HGB CONC 33.2 g/dl (32.0-36.5); MEAN CORPUSCULAR VOLUME 102.5 fl (80.0-96.0); MONO # 0.7 10^3/uL (0.0-0.8); MONO % 9.8 % (2.0-8.0); NEUTROPHILS # 4.5 10^3/uL (1.5-8.5); NEUTROPHILS % 60.2 % (36.0-66.0); PLATELET COUNT, AUTOMATED 160 10^3/uL (150-450); RED BLOOD COUNT 4.06 10^6/uL (4.30-6.10); WHITE BLOOD COUNT 7.4 10^3/uL (4.0-10.0)
[2024-03-24 09:45] LABS: ALBUMIN 3.3 G/DL (3.2-5.2); ALKALINE PHOSPHATASE 77 U/L (40-129); ALT/SGPT 33 U/L (7.0-40); AST/SGOT 19 U/L (<34); BILIRUBIN,TOTAL 0.3 MG/DL (0.3-1.2); BLOOD UREA NITROGEN 17 MG/DL (9-23); CALCIUM LEVEL 9.6 MG/DL (8.3-10.6); CARBON DIOXIDE LEVEL 33 MMOL/L (20-31); CHLORIDE LEVEL 105 MMOL/L (98-107); CHOLESTEROL LEVEL 152 MG/DL (<200); CHOLESTEROL RISK RATIO 1.99 (<5); CREATININE FOR GFR 0.89 MG/DL (0.70-1.30); GLOMERULAR FILTRATION RATE > 60.0 (>35); GLUCOSE, FASTING 94 MG/DL (74-106); HDL CHOLESTEROL 76.1 MG/DL (>40); LDL CHOLESTEROL 64.5 MG/DL (<100); NON-HDL-C 75.9 MG/DL; POTASSIUM SERUM 4.5 MMOL/L (3.5-5.1); SODIUM LEVEL 143 MMOL/L (136-145); TOTAL PROTEIN 6.6 G/DL (5.7-8.2); TRIGLYCERIDES LEVEL 57 MG/DL (<150)
== END ==
LOC: M LAB 07:57
PROVIDERS: ATTEND Registered Nurse
DX: I11.0 Hypertensive heart disease with heart failure (principal); I50.9 Heart failure, unspecified

== ENCOUNTER → 2024-04-17 | Outpatient (CLI) | payer MEDICARE, BC ==
[2024-04-17 06:37] LABS: BASO % 0.2 % (0.0-1.0); EOS # 0.1 10^3/uL (0.0-0.5); EOS % 0.7 % (0.0-3.0); HEMATOCRIT 44.2 % (42.0-52.0); HEMOGLOBIN 14.9 g/dl (13.5-17.5); LYMPH # 1.3 10^3/uL (1.5-5.0); LYMPH % 15.2 % (24.0-44.0); MEAN CORPUSCULAR HGB CONC 33.7 g/dl (32.0-36.5); MEAN CORPUSCULAR VOLUME 103.8 fl (80.0-96.0); MONO # 0.3 10^3/uL (0.0-0.8); MONO % 3.9 % (2.0-8.0); NEUTROPHILS # 6.8 10^3/uL (1.5-8.5); NEUTROPHILS % 79.4 % (36.0-66.0); PLATELET COUNT, AUTOMATED 162 10^3/uL (150-450); RED BLOOD COUNT 4.26 10^6/uL (4.30-6.10); WHITE BLOOD COUNT 8.5 10^3/uL (4.0-10.0)
[2024-04-17 07:15] LABS: ALBUMIN 3.6 G/DL (3.2-5.2); ALKALINE PHOSPHATASE 70 U/L (40-129); ALT/SGPT 21 U/L (7.0-40); AST/SGOT 19 U/L (<34); BILIRUBIN,TOTAL 0.4 MG/DL (0.3-1.2); BLOOD UREA NITROGEN 21 MG/DL (9-23); CALCIUM LEVEL 9.6 MG/DL (8.3-10.6); CARBON DIOXIDE LEVEL 35 MMOL/L (20-31); CHLORIDE LEVEL 103 MMOL/L (98-107); CHOLESTEROL LEVEL 168 MG/DL (<200); CHOLESTEROL RISK RATIO 1.88 (<5); CREATININE FOR GFR 0.89 MG/DL (0.70-1.30); GLOMERULAR FILTRATION RATE > 60.0 (>35); GLUCOSE, FASTING 128 MG/DL (74-106); LDL CHOLESTEROL 69.4 MG/DL (<100); POTASSIUM SERUM 4.6 MMOL/L (3.5-5.1); SODIUM LEVEL 142 MMOL/L (136-145); TOTAL PROTEIN 6.7 G/DL (5.7-8.2); TRIGLYCERIDES LEVEL 48 MG/DL (<150)
== END ==
LOC: M LAB 06:15
PROVIDERS: ATTEND Registered Nurse
DX: I11.9 Hypertensive heart disease without heart failure (principal)

== ENCOUNTER → 2024-04-22 | Outpatient (CLI) | payer MEDICARE, BC | LOC: M PLAIMG 09:22 | PROVIDERS: ATTEND Nurse Practitioner Family | DX: J44.1 Chronic obstructive pulmonary disease with (acute) exacerbation (principal) ==

== ENCOUNTER → 2024-04-25 | Outpatient (CLI) | payer MEDICARE, BC ==
[~2024-04-25] MED LIST changes: +FLUC100T3 PO
== END ==
LOC: M ONCR 10:38
PROVIDERS: ATTEND General Practice
DX: B37.0 Candidal stomatitis (principal)
CPT/HCPCS: 31575; G0463

== ENCOUNTER → 2024-06-18 | Outpatient (CLI) | payer MEDICARE, BC ==
[2024-06-18 09:01] LABS: THYROID STIMULATING HORMONE 1.448 uIU/ML (0.55-4.78)
[2024-06-18 09:03] LABS: FREE T4 1.17 NG/DL (0.89-1.76)
== END ==
LOC: M ONCR 07:49
PROVIDERS: ATTEND General Practice
DX: C32.0 Malignant neoplasm of glottis (principal); B37.0 Candidal stomatitis; F17.218 Nicotine dependence, cigarettes, with other nicotine-induced disorders; Z92.3 Personal history of irradiation; Z88.1 Allergy status to other antibiotic agents; Z79.2 Long term (current) use of antibiotics; Z79.52 Long term (current) use of systemic steroids; Z79.01 Long term (current) use of anticoagulants; Z79.899 Other long term (current) drug therapy
CPT/HCPCS: 31575; 36415; 84439; 84443; G0463

== ENCOUNTER → 2024-06-23 | Outpatient (REF) | payer MEDICARE, BC | LOC: M SFHCPLAZ 10:06 | PROVIDERS: ATTEND Internal Medicine Infectious Disease | DX: B37.0 Candidal stomatitis (principal) ==

== ENCOUNTER → 2024-07-24 | Outpatient (CLI) | payer MEDICARE, BC ==
[~2024-07-24] MED LIST changes: -FLOM0.4C39 PO; +TAMS-18 PO
== END ==
LOC: M ONCR 07:39
PROVIDERS: ATTEND General Practice
DX: J02.9 Acute pharyngitis, unspecified (principal)
CPT/HCPCS: 31575; 87102; G0463

== ENCOUNTER → 2024-10-22 | Outpatient (CLI) | payer MEDICARE, BC ==
[2024-10-22 08:18] LABS: BASO # 0.0 10^3/uL (0.0-0.2); BASO % 0.6 % (0.0-1.0); EOS # 0.2 10^3/uL (0.0-0.5); EOS % 3.0 % (0.0-3.0); LYMPH # 1.4 10^3/uL (1.5-5.0); LYMPH % 20.3 % (24.0-44.0); MONO # 0.7 10^3/uL (0.0-0.8); MONO % 9.4 % (2.0-8.0); NEUTROPHILS # 4.6 10^3/uL (1.5-8.5); NEUTROPHILS % 66.4 % (36.0-66.0); PLATELET COUNT, AUTOMATED 179 10^3/uL (150-450)
[2024-10-22 08:31] LABS: INR 0.98
[2024-10-22 08:54] LABS: ALT/SGPT 42.0 U/L (7.0-40); AST/SGOT 45.0 U/L (<34); CALCIUM LEVEL 9.6 MG/DL (8.3-10.6); CARBON DIOXIDE LEVEL 34.0 MMOL/L (20-31); CHLORIDE LEVEL 103.0 MMOL/L (98-107); CREATININE FOR GFR 0.89 MG/DL (0.70-1.30); GLOMERULAR FILTRATION RATE 85.6 (>35); POTASSIUM SERUM 4.6 MMOL/L (3.5-5.1); SODIUM LEVEL 144.0 MMOL/L (136-145)
== END ==
LOC: M LAB 07:21
PROVIDERS: ATTEND Registered Nurse
DX: Z01.818 Encounter for other preprocedural examination (principal)

== ENCOUNTER → 2024-11-14 | Day surgery (SDC) | payer MEDICARE, BC ==
[~2024-11-14] VITALS: Ht 180.3 cm; Wt 63.4 kg
[~2024-11-14] MED LIST changes: +ACETAMINOPHEN 1000MG/100ML IV BAG As Ordered ONE; +GLYCOPYRROLATE INJ 0.2 MG/ML 2 ML VIAL As Ordered ONE; +HYDROMORPHONE HCL 0.5 MG/0.5 ML SYRINGE IV PRN; +LIDOCAINE 2% 100 MG/5 ML SDV (FOR ANES.) As Ordered ONE; +LR 1,000 ML IV SCH; +ONDANSETRON 4MG 2ML VIAL As Ordered ONE; +ONDANSETRON 4MG 2ML VIAL IV PRN; +PHENYLephrine 500MCG 5ML (100MCG/ML) SYRINGE As Ordered ONE; +ROCURONIUM BROMIDE 50MG/5ML VIAL As Ordered ONE; +SUGAMMADEX SODIUM 500 MG/5 ML VIAL As Ordered ONE; +dexAMETHasone 4 MG/ML 1 ML VIAL As Ordered ONE
[2024-11-14] MEDS: ceFAZolin SOD 2 GM IV ONCE IV ONE (13:49)
[2024-11-14 16:20] VITALS: BP 109/51; TEMP 97.1; O2SAT 97
== END | disposition home or self-care (01) ==
LOC: M SDC 12:15
PROVIDERS: ATTEND Surgery
DX: K40.30 Unilateral inguinal hernia, with obstruction, without gangrene, not specified as recurrent (principal); I10 Essential (primary) hypertension; I25.10 Atherosclerotic heart disease of native coronary artery without angina pectoris; Z98.61 Coronary angioplasty status; E78.5 Hyperlipidemia, unspecified; K57.92 Diverticulitis of intestine, part unspecified, without perforation or abscess without bleeding; Z79.01 Long term (current) use of anticoagulants; Z79.51 Long term (current) use of inhaled steroids; F17.210 Nicotine dependence, cigarettes, uncomplicated; Z79.899 Other long term (current) drug therapy; I48.91 Unspecified atrial fibrillation
CPT/HCPCS: 49650; C1781; J0131; J0665; J0690; J1100; J1596; J2371; J2405; J3010; S2900

== ENCOUNTER → 2024-12-19 | Outpatient (CLI) | payer MEDICARE, BC ==
[~2024-12-19] MED LIST changes: -ACETAMINOPHEN 1000MG/100ML IV BAG As Ordered ONE; -GLYCOPYRROLATE INJ 0.2 MG/ML 2 ML VIAL As Ordered ONE; -HYDROMORPHONE HCL 0.5 MG/0.5 ML SYRINGE IV PRN; -LIDOCAINE 2% 100 MG/5 ML SDV (FOR ANES.) As Ordered ONE; -LR 1,000 ML IV SCH; -ONDANSETRON 4MG 2ML VIAL As Ordered ONE; -ONDANSETRON 4MG 2ML VIAL IV PRN; -PHENYLephrine 500MCG 5ML (100MCG/ML) SYRINGE As Ordered ONE; -ROCURONIUM BROMIDE 50MG/5ML VIAL As Ordered ONE; -SUGAMMADEX SODIUM 500 MG/5 ML VIAL As Ordered ONE; -dexAMETHasone 4 MG/ML 1 ML VIAL As Ordered ONE
== END ==
LOC: M ONCR 07:48
PROVIDERS: ATTEND General Practice
DX: C32.0 Malignant neoplasm of glottis (principal); F17.210 Nicotine dependence, cigarettes, uncomplicated; Z92.3 Personal history of irradiation; Z79.01 Long term (current) use of anticoagulants; Z79.899 Other long term (current) drug therapy
CPT/HCPCS: 31575; G0463